=== PATIENT | male | born 1970 | race Caucasian/White ===

== ENCOUNTER 2020-04-29 09:00 | Outpatient (REF) | payer OTHER, SELFPAY ==
[2020-04-29 11:19] LABS: MANUAL DIFF FLAG NO
[2020-04-29 11:31] LABS: Basophils Absolute Auto 0.1 X10*3/uL (0.0-0.2); Basophils Percent Auto 0.7 % (0-2); Eosinophils Absolute Auto 0.4 X10*3/uL (0.0-0.4); Hematocrit 42.7 % (42-52); Imm Gran Abs Auto 0.03 X10*3/uL (0.00-0.03); Imm Gran Pct Auto 0.3 % (0.0-0.4); Lymphocytes Absolute Auto 3.6 X10*3/uL (1.2-4.9); Lymphocytes Percent Auto 36.2 % (20-40); Mean Corpuscular HGB Conc 35.1 g/dl (31.0-36.0); Mean Corpuscular Hemoglobin 32.6 pg (27.0-33.0); Mean Corpuscular Volume 92.8 fL (80-98); Mean Platelet Volume 11.5 fL (9.4-12.4); Monocytes Absolute Auto 0.8 X10*3/uL (0.1-1.2); Monocytes Percent Auto 8.2 % (2-11); Neutrophils Percent Auto 50.6 % (45-73); Platelet Count 249 X10*3/uL (160-400); Red Cell Distribution Width 11.9 % (11.0-16.0)
[2020-04-29 12:02] LABS: Alanine Aminotransferase 11 U/L (0-40); Albumin Level 4.1 g/dL (3.5-5.0); Alkaline Phosphatase 74 U/L (39-117); Anion Gap 11 (12-20); Aspartate Amino Transferase 14 U/L (5-37); Bilirubin Total 0.7 mg/dL (0.0-1.0); Blood Urea Nitrogen 10 mg/dL (9-16); Calcium 8.8 mg/dL (8.4-10.2); Carbon Dioxide 26 mmol/L (22-29); Chloride 106 mmol/L (96-108); Estimated Glomerular Filt Rate > 60; Glucose Random 91 mg/dL (60-115); Potassium 4.1 mmol/l (3.3-5.1); Sodium 139 mmol/L (135-145); Total Protein 6.5 g/dL (6.5-8.0)
== END 2020-04-29 09:01 | disposition home or self-care (01) ==
LOC: HO.HMGCLDS 09:00
PROVIDERS: PCP Internal Medicine; Visit Provider Physician Assistant Medical
DX: L40.0 Psoriasis vulgaris (principal); Z79.899 Other long term (current) drug therapy
CPT/HCPCS: 36415; 80053; 85025; 86481

== ENCOUNTER 2020-09-30 09:50 | Outpatient (REF) | payer OTHER, SELFPAY ==
[2020-09-30 11:43] LABS: MANUAL DIFF FLAG NO
[2020-09-30 11:56] LABS: Basophils Absolute Auto 0.1 X10*3/uL (0.0-0.2); Eosinophils Absolute Auto 0.5 X10*3/uL (0.0-0.4); Eosinophils Percent Auto 4.9 % (0-4); Hematocrit 44.6 % (42-52); Hemoglobin 15.2 g/dl (14.0-18.0); Imm Gran Abs Auto 0.03 X10*3/uL (0.00-0.03); Imm Gran Pct Auto 0.3 % (0.0-0.4); Lymphocytes Absolute Auto 3.4 X10*3/uL (1.2-4.9); Lymphocytes Percent Auto 36.8 % (20-40); Mean Corpuscular HGB Conc 34.1 g/dl (31.0-36.0); Mean Corpuscular Hemoglobin 32.2 pg (27.0-33.0); Mean Corpuscular Volume 94.5 fL (80-98); Mean Platelet Volume 11.2 fL (9.4-12.4); Monocytes Absolute Auto 0.8 X10*3/uL (0.1-1.2); Monocytes Percent Auto 8.7 % (2-11); Neutrophils Absolute Auto 4.5 X10*3/uL (2.0-8.3); Neutrophils Percent Auto 48.3 % (45-73); Platelet Count 236 X10*3/uL (160-400); Red Blood Count 4.72 X10*6/uL (4.60-5.80); Red Cell Distribution Width 11.9 % (11.0-16.0); White Blood Count 9.3 X10*3/uL (4.8-10.8)
[2020-09-30 12:18] LABS: Alanine Aminotransferase 17 U/L (0-40); Albumin Level 4.3 g/dL (3.5-5.0); Alkaline Phosphatase 78 U/L (39-117); Anion Gap 11 (12-20); Aspartate Amino Transferase 19 U/L (5-37); Blood Urea Nitrogen 10 mg/dL (9-16); Calcium 9.1 mg/dL (8.4-10.2); Carbon Dioxide 29 mmol/L (22-29); Chloride 104 mmol/L (96-108); Estimated Glomerular Filt Rate > 60; Glucose Random 82 mg/dL (60-115); Potassium 4.1 mmol/L (3.3-5.1); Sodium 140 mmol/L (135-145); Total Protein 6.9 g/dL (6.5-8.0)
== END 2020-09-30 09:51 | disposition home or self-care (01) ==
LOC: HO.HMGCLDS 09:50
PROVIDERS: PCP Internal Medicine; Visit Provider Physician Assistant Medical
DX: L40.0 Psoriasis vulgaris (principal); Z79.899 Other long term (current) drug therapy
CPT/HCPCS: 36415; 80053; 85025

== ENCOUNTER 2021-06-09 10:19 | Outpatient (REF) | payer OTHER, SELFPAY ==
[2021-06-09 11:03] LABS: MANUAL DIFF FLAG NO
[2021-06-09 11:06] LABS: Basophils Absolute Auto 0.1 X10*3/uL (0.0-0.2); Basophils Percent Auto 0.8 % (0-2); Eosinophils Absolute Auto 0.5 X10*3/uL (0.0-0.4); Eosinophils Percent Auto 5.5 % (0-4); Hematocrit 43.1 % (42.0-52.0); Hemoglobin 14.8 g/dl (14.0-18.0); Imm Gran Abs Auto 0.02 X10*3/uL (0.00-0.03); Imm Gran Pct Auto 0.2 % (0.0-0.4); Lymphocytes Absolute Auto 3.6 X10*3/uL (1.2-4.9); Lymphocytes Percent Auto 38.3 % (20-40); Mean Corpuscular HGB Conc 34.3 g/dl (31.0-36.0); Mean Corpuscular Hemoglobin 31.9 pg (27.0-33.0); Mean Corpuscular Volume 92.9 fL (80.0-98.0); Mean Platelet Volume 11.1 fL (9.4-12.4); Monocytes Absolute Auto 0.7 X10*3/uL (0.1-1.2); Neutrophils Absolute Auto 4.6 x10*3/uL (2.0-8.3); Neutrophils Percent Auto 48.2 % (45-73); Platelet Count 255 X10*3/uL (160-400); Red Blood Count 4.64 X10*6/uL (4.60-5.80); Red Cell Distribution Width 11.9 % (11.0-16.0); White Blood Count 9.5 X10*3/uL (4.8-10.8)
[2021-06-09 12:07] LABS: Alanine Aminotransferase 12 U/L (0-40); Albumin Level 4.1 g/dL (3.5-5.0); Alkaline Phosphatase 81 U/L (39-117); Anion Gap 13 (12-20); Aspartate Amino Transferase 12 U/L (5-37); Bilirubin Total 0.7 mg/dL (0.0-1.0); Blood Urea Nitrogen 7 mg/dL (9-16); Calcium 9.1 mg/dL (8.4-10.2); Carbon Dioxide 22 mmol/L (22-29); Chloride 106 mmol/L (96-108); Estimated Glomerular Filt Rate > 60; Glucose Random 108 mg/dL (60-115); Potassium 3.9 mmol/L (3.3-5.1); Sodium 137 mmol/L (135-145); Total Protein 6.6 g/dL (6.5-8.0)
[2021-06-11 14:51] LABS: TS Negative Control Passed; TS Panel A 0; TS Panel B 0; TS Positive Control Passed; TSpotTB Negative (Negative)
== END 2021-06-09 10:20 | disposition home or self-care (01) ==
LOC: HO.HMGCLDS 10:19
PROVIDERS: PCP Internal Medicine; Visit Provider Physician Assistant Medical
DX: Z11.1 Encounter for screening for respiratory tuberculosis (principal); L40.0 Psoriasis vulgaris; Z79.899 Other long term (current) drug therapy
CPT/HCPCS: 36415; 80053; 85025; 86481

== ENCOUNTER 2021-10-07 08:11 | Outpatient (REF) | payer OTHER, SELFPAY ==
[2021-10-07 11:38] LABS: Alanine Aminotransferase 12 U/L (0-40); Albumin Level 4.1 g/dL (3.5-5.0); Alkaline Phosphatase 77 U/L (39-117); Anion Gap 12 (12-20); Aspartate Amino Transferase 13 U/L (5-37); Bilirubin Total 0.9 mg/dL (0.0-1.0); Blood Urea Nitrogen 11 mg/dL (9-16); Calcium 9.4 mg/dL (8.4-10.2); Carbon Dioxide 25 mmol/L (22-29); Chloride 108 mmol/L (96-108); Cholesterol 174 mg/dL; Estimated Glomerular Filt Rate > 60; Glucose Fasting 95 mg/dL (60-99); HDL Cholesterol 41 mg/dL; LDL Cholesterol Calculated 120 mg/dl; Potassium 4.1 mmol/L (3.3-5.1); Sodium 141 mmol/L (135-145); Total Protein 6.7 g/dL (6.5-8.0); Triglycerides 65 mg/dL
== END 2021-10-07 08:12 | disposition home or self-care (01) ==
LOC: HO.HMGCLDS 08:11
PROVIDERS: PCP Internal Medicine; Visit Provider Internal Medicine
DX: Z00.01 Encounter for general adult medical examination with abnormal findings (principal); K21.9 Gastro-esophageal reflux disease without esophagitis
CPT/HCPCS: 36415; 80053; 80061

== ENCOUNTER 2021-11-21 08:02 | Outpatient (REF) | payer OTHER, SELFPAY ==
--- NOTE | 2021-11-21 16:15 | PFT_ITS ---
Forced vital capacity 85%, FEV1 74%, FEV1/FVC ratio is 68, FEF 25-75 is 51% and MVV 64%. Post bronchodilator therapy, there is significant improvement in FEV1 and FEF 25-75. Total lung capacity 95%. Residual volume 123%. Diffusion capacity is 62%. CONCLUSION: Mild degree of obstructive airway disorder which corrects after bronchodilator therapy. This finding is consistent with bronchial asthma with mild COPD. Clinical correlation is recommended. MD NEHEMIAS Byrd/MODL / [id number]
== END 2021-11-21 08:03 | disposition home or self-care (01) ==
LOC: HO.RESP 08:02
PROVIDERS: PCP Internal Medicine; Visit Provider Internal Medicine
DX: R06.2 Wheezing (principal); Z72.0 Tobacco use
CPT/HCPCS: 94060; 94727; 94729

== ENCOUNTER 2022-01-02 08:17 | Outpatient (REF) | payer OTHER, SELFPAY ==
[2022-01-02 11:29] LABS: MANUAL DIFF FLAG NO
[2022-01-02 11:48] LABS: Basophils Absolute Auto 0.1 X10*3/uL (0.0-0.2); Basophils Percent Auto 0.6 % (0-2); Eosinophils Absolute Auto 0.4 X10*3/uL (0.0-0.4); Eosinophils Percent Auto 4.1 % (0-4); Hemoglobin 14.7 g/dl (14.0-18.0); Imm Gran Abs Auto 0.03 X10*3/uL (0.00-0.03); Imm Gran Pct Auto 0.3 % (0.0-0.4); Lymphocytes Absolute Auto 3.5 X10*3/uL (1.2-4.9); Lymphocytes Percent Auto 36.5 % (20-40); Mean Corpuscular HGB Conc 34.2 g/dl (31.0-36.0); Mean Corpuscular Hemoglobin 32.5 pg (27.0-33.0); Mean Corpuscular Volume 95.1 fL (80.0-98.0); Mean Platelet Volume 11.6 fL (9.4-12.4); Monocytes Absolute Auto 0.8 X10*3/uL (0.1-1.2); Monocytes Percent Auto 8.2 % (2-11); Neutrophils Absolute Auto 4.9 x10*3/uL (2.0-8.3); Neutrophils Percent Auto 50.3 % (45-73); Platelet Count 254 X10*3/uL (160-400); Red Blood Count 4.52 X10*6/uL (4.60-5.80); Red Cell Distribution Width 12.2 % (11.0-16.0); White Blood Count 9.7 X10*3/uL (4.8-10.8)
[2022-01-02 12:15] LABS: Alanine Aminotransferase 10 U/L (0-40); Albumin Level 4.3 g/dL (3.5-5.0); Alkaline Phosphatase 77 U/L (39-117); Anion Gap 13 (12-20); Aspartate Amino Transferase 12 U/L (5-37); Bilirubin Total 0.8 mg/dL (0.0-1.0); Blood Urea Nitrogen 12 mg/dL (9-16); Calcium 9.1 mg/dL (8.4-10.2); Carbon Dioxide 24 mmol/L (22-29); Chloride 105 mmol/L (96-108); Estimated Glomerular Filt Rate > 60; Glucose Random 87 mg/dL (60-115); Potassium 3.7 mmol/L (3.3-5.1); Sodium 138 mmol/L (135-145)
== END 2022-01-02 08:18 | disposition home or self-care (01) ==
LOC: HO.HMGCLDS 08:17
PROVIDERS: PCP Internal Medicine; Visit Provider Physician Assistant Medical
DX: L40.0 Psoriasis vulgaris (principal); D48.5 Neoplasm of uncertain behavior of skin; Z79.899 Other long term (current) drug therapy
CPT/HCPCS: 36415; 80053; 85025

== ENCOUNTER 2022-06-26 08:59 | Outpatient (REF) | payer OTHER, SELFPAY ==
[2022-06-26 13:01] LABS: Alanine Aminotransferase 10 U/L (0-40); Albumin Level 4.3 g/dL (3.5-5.0); Alkaline Phosphatase 76 U/L (39-117); Anion Gap 12 (12-20); Aspartate Amino Transferase 14 U/L (5-37); Blood Urea Nitrogen 6 mg/dL (9-16); Calcium 9.8 mg/dL (8.4-10.2); Carbon Dioxide 27 mmol/L (22-29); Chloride 102 mmol/L (96-108); Estimated Glomerular Filt Rate > 60; Glucose Random 86 mg/dL (60-115); Potassium 3.8 mmol/L (3.3-5.1); Prostate Specific Antigen 0.28 ng/mL (<0.05-4.0); Sodium 137 mmol/L (135-145); Total Protein 6.9 g/dL (6.5-8.0)
== END 2022-06-26 09:00 | disposition home or self-care (01) ==
LOC: HO.HMGCLDS 08:59
PROVIDERS: Absent Provider Dermatology; PCP Internal Medicine; Visit Provider Internal Medicine
DX: Z12.5 Encounter for screening for malignant neoplasm of prostate (principal); I10 Essential (primary) hypertension; J45.40 Moderate persistent asthma, uncomplicated; K21.9 Gastro-esophageal reflux disease without esophagitis; L40.50 Arthropathic psoriasis, unspecified; R35.1 Nocturia; Z72.0 Tobacco use
CPT/HCPCS: 36415; 80053; 84153

== ENCOUNTER → 2022-07-13 08:33 | Outpatient (BNVA) | payer SELFPAY | PROVIDERS: PCP Internal Medicine; Visit Provider Internal Medicine | DX: Z02.79 Encounter for issue of other medical certificate (principal) ==

== ENCOUNTER 2022-10-15 10:08 | Outpatient (REF) | payer OTHER, SELFPAY ==
[2022-10-15 11:32] LABS: MANUAL DIFF FLAG NO
[2022-10-15 11:51] LABS: Basophils Absolute Auto 0.1 X10*3/uL (0.0-0.2); Basophils Percent Auto 0.7 % (0-2); Eosinophils Absolute Auto 0.5 X10*3/uL (0.0-0.4); Eosinophils Percent Auto 3.9 % (0-4); Hematocrit 44.2 % (42.0-52.0); Hemoglobin 15.4 g/dl (14.0-18.0); Imm Gran Abs Auto 0.04 X10*3/uL (0.00-0.03); Imm Gran Pct Auto 0.3 % (0.0-0.4); Lymphocytes Absolute Auto 3.8 X10*3/uL (1.2-4.9); Lymphocytes Percent Auto 30.3 % (20-40); Mean Corpuscular HGB Conc 34.8 g/dl (31.0-36.0); Mean Corpuscular Hemoglobin 32.5 pg (27.0-33.0); Mean Corpuscular Volume 93.2 fL (80.0-98.0); Mean Platelet Volume 11.2 fL (9.4-12.4); Monocytes Absolute Auto 0.7 X10*3/uL (0.1-1.2); Monocytes Percent Auto 5.9 % (2-11); Neutrophils Absolute Auto 7.4 x10*3/uL (2.0-8.3); Neutrophils Percent Auto 58.9 % (45-73); Platelet Count 244 X10*3/uL (160-400); Red Blood Count 4.74 X10*6/uL (4.60-5.80); Red Cell Distribution Width 11.9 % (11.0-16.0); White Blood Count 12.5 X10*3/uL (4.8-10.8)
[2022-10-15 12:11] LABS: Alanine Aminotransferase 15 U/L (0-40); Albumin Level 4.2 g/dL (3.5-5.0); Alkaline Phosphatase 81 U/L (39-117); Anion Gap 14 (12-20); Aspartate Amino Transferase 19 U/L (5-37); Bilirubin Direct 0.2 mg/dL (0.0-0.5); Bilirubin Total 0.7 mg/dL (0.0-1.0); Blood Urea Nitrogen 8 mg/dL (9-16); Calcium 9.3 mg/dL (8.4-10.2); Carbon Dioxide 25 mmol/L (22-29); Chloride 105 mmol/L (96-108); Cholesterol 161 mg/dL; Estimated Glomerular Filt Rate > 60; Glucose Random 92 mg/dL (60-115); HDL Cholesterol 38 mg/dL; LDL Cholesterol Calculated 105 mg/dl; Potassium 3.6 mmol/L (3.3-5.1); Sodium 140 mmol/L (135-145); Total Protein 6.9 g/dL (6.5-8.0); Triglycerides 90 mg/dL
[2022-10-18 00:48] LABS: TS Negative Control Passed; TS Panel A 2; TS Panel B 0; TS Positive Control Passed; TSpotTB Negative (Negative)
== END 2022-10-15 10:09 | disposition home or self-care (01) ==
LOC: HO.HMGCLDS 10:08
PROVIDERS: PCP Internal Medicine; Visit Provider Physician Assistant Medical
DX: L40.0 Psoriasis vulgaris (principal); Z79.899 Other long term (current) drug therapy
CPT/HCPCS: 36415; 80048; 80061; 80076; 85025; 86481

== ENCOUNTER 2022-10-17 06:58 | Outpatient (REF) | payer OTHER, SELFPAY ==
[2022-10-17 12:06] LABS: Alanine Aminotransferase 20 U/L (0-40); Albumin Level 3.9 g/dL (3.5-5.0); Alkaline Phosphatase 74 U/L (39-117); Anion Gap 11 (12-20); Aspartate Amino Transferase 20 U/L (5-37); Bilirubin Total 0.9 mg/dL (0.0-1.0); Blood Urea Nitrogen 10 mg/dL (9-16); Calcium 9.3 mg/dL (8.4-10.2); Carbon Dioxide 28 mmol/L (22-29); Chloride 107 mmol/L (96-108); Cholesterol 170 mg/dL; Estimated Glomerular Filt Rate > 60; Glucose Fasting 91 mg/dL (60-99); HDL Cholesterol 39 mg/dL; LDL Cholesterol Calculated 110 mg/dl; Potassium 3.8 mmol/L (3.3-5.1); Sodium 142 mmol/L (135-145); Total Protein 6.4 g/dL (6.5-8.0); Triglycerides 108 mg/dL
== END 2022-10-17 06:59 | disposition home or self-care (01) ==
LOC: HO.HMGCLDS 06:58
PROVIDERS: PCP Internal Medicine; Visit Provider Internal Medicine
DX: Z00.01 Encounter for general adult medical examination with abnormal findings (principal); K21.9 Gastro-esophageal reflux disease without esophagitis; I10 Essential (primary) hypertension; J45.40 Moderate persistent asthma, uncomplicated; Z72.0 Tobacco use
CPT/HCPCS: 36415; 80053; 80061

== ENCOUNTER 2023-02-12 08:33 | Outpatient (AMB) | payer OTHER, SELFPAY ==
[2023-02-12 08:38] VITALS: BP 152/90; PULSE 71; O2SAT 98; BMI 22.9
--- NOTE | 2023-02-12 08:38 | A.OFFPC_ITS ---
Vital Signs 02/12/23 08:38 Height 5 ft 9 in Weight 155 lb 4 oz BMI 22.9 BP 152/90 H Blood Pressure Location Lt brachial Position Sitting Pulse 71 Pulse Source Pulse Oximeter Pulse Oximetry (%) 98 Oxygen Delivery Method Room Air Intake Visit Reasons: 4 month follow up HTN Allergies No Known Allergies Allergy (Verified 02/12/23 08:39) Medication List - Last Reconciled 02/12/23 by Chandu Ji MD adalimumab (Humira(CF) Pen) 40 mg subcut Q2W albuterol sulfate 90 mcg/actuation (ProAir HFA) 1 inh inhalation QID PRN 30 days fluticasone propion-salmeterol 230-21 mcg/actuation (Advair HFA) 2 puffs inhalation Q12H 30 days losartan 50 mg PO DAILY 90 days mirtazapine 15 mg PO BEDTIME naproxen (Naprosyn) 500 mg PO BID omeprazole 20 mg PO DAILY 90 days Tobacco use date assessed: 02/12/23 Dental Screening Dental Screen Date: 02/12/23 Did you have a dental visit in the last 12 months?: Yes Did you have a dental problem in the last 6 months where you did not have access to dental care?: No Was dental information given to patient?: No HPI 4 month follow up HTN HPI Details 52-year-old male came in today for regular follow-up appointment Patient continued to smoke 1 pack per day once again we discussed that it is very important that patient stop smoking He continued to wheeze. In spite of taking Advair inhaler regularly. I have added Spiriva as well Patient had colonoscopy 2 years ago at [facility] GERD is stable with omeprazole 20 mg Patient have psoriatic arthritis and was taking Humira through Dermatology, which is now changed to simplicity, he is requesting a referral to Rheumatology for arthritic pain Hypertension: Is elevated patient says that a blood pressure has been running around in this range at home as well I have changed his losartan 50 mg 2 Losartan 50-hydrochlorothiazide 12.5 mg Lab are needed before next visit in 3 months Taking mirtazapine 15 mg. As sleep aid, [facility] Medical History Diverticulitis Social History Housing: House Patient Tobacco Use Status: Current everyday Tobacco user Cigarette Packs Per Day: 1 e-Cigarette/Vaping Use: Never Used service: No Current occupational status: employed Cognitive needs: No Hearing needs: No Vision needs: No Questionnaire PHQ-9 Over the last 2 weeks, how often have you been bothered by any of the following problems? 35913 - PHQ-9 Billing: Patient declined-do not bill Source: Developed by Drs. Jerman El, Ruby Galaviz, Carlos Rocha and colleagues, with an educational hina from [employer]. Thrive Questionnaire Date Thrive assessed: 02/12/23 I am a: Patient What is your living situation today?: I have a steady place to live Within the past 12 months, did the food you bought not last and you didn't have the money to get more?: Never true Within the past 12 months, did you worry whether your food would run out before you got money to buy more?: Never true Do you have trouble paying for medicines?: No Do you have trouble getting transportation to medical appointments?: No Do you have trouble paying your heating and electricity bill?: No Do you have trouble taking care of your child, family member or friend?: No Do you have trouble with day-to-day activities such as bathing, preparing meals, shopping, managing finances, etc.?: No Are you currently unemployed and looking for a job?: No Are you interested in more education?: No AUDIT C Alcohol Use Questionnaire (AUDIT-C) 1. How often do you have a drink containing alcohol?: 2-4 times a month 2. How many drinks containing alcohol do you have on a typical day when you are drinking?: 1 or 2 3. How often do you have six or more drinks on one occasion?: Never Total Score: 2 Score Reviewed/Action Taken: Yes DESTINEY-7 AMB Questionnaire DESTINEY-7 Date DESTINEY - 7 assessed: 02/12/23 Source: Developed by Drs. Jerman El, Carlos Allison and colleagues, with an educational hina from [employer]. DESTINEY-7 Assessment Billing DESTINEY-7 Assessment Tool: pt declined-do not bill Review of Systems Const Denies chills and Denies fever(s) ENT Denies epistaxis and Denies nasal discharge Card Denies chest pain Resp Denies chest congestion, Denies cough and Denies hemoptysis GI Denies diarrhea and Denies nausea Skin/Breast Denies rash Neuro Reports no additional complaints Psych Reports no additional complaints Endo Reports no additional complaints Physical exam (Primary Care) Vital Signs: Last Vital Signs Pulse 71 02/12/23 08:38 BP 152/90 H 02/12/23 08:38 Pulse Ox 98 02/12/23 08:38 Oxygen Delivery Method Room Air 02/12/23 08:38 BMI result Body Mass Index 22.9 Tobacco/Smoking Status: Tobacco use Status Tobacco use date assessed 02/12/23 02/12/23 08:39 Patient Tobacco Use Status Current everyday Tobacco 02/12/23 08:39 e-Cigarette/Vaping Use Never Used 02/12/23 08:39 Thrive Assessment: Date of Thrive Assessment Date Thrive assessed 02/12/23 02/12/23 08:48 Const General: cooperative, comfortable and no acute distress Orientation/consciousness: patient oriented x3 HENMT Head: Yes normocephalic Eyes General: appearance normal, both eyes and all related structures Neck Neck: Yes supple Resp Other: Positive wheezing both sides Effort & Inspection: normal respiratory effort, no cough and no stridor Cardio Rhythm: regular rhythm Heart sounds: S1 normal heart sound present and S2 normal heart sound present Skin General skin exam: turgor normal Neuro General: patient oriented x3, tone normal and moves all extremities Extrem Right lower extremity: no edema Left lower extremity: no edema Assessment and Plan Assessment & Plan (1) Psoriatic arthritis: Code(s): L40.50 - Arthropathic psoriasis, unspecified (2) Hypertension, essential: Code(s): I10 - Essential (primary) hypertension (3) Asthma, moderate persistent: Code(s): J45.40 - Moderate persistent asthma, uncomplicated (4) Difficulty sleeping: Code(s): G47.9 - Sleep disorder, unspecified (5) Tobacco abuse: Code(s): Z72.0 - Tobacco use (6) Wheezing: Code(s): R06.2 - Wheezing (7) Chronic GERD: Code(s): K21.9 - Gastro-esophageal reflux disease without esophagitis Plan 52-year-old male came in today for regular follow-up appointment Patient continued to smoke 1 pack per day once again we discussed that it is very important that patient stop smoking He continued to wheeze. In spite of taking Advair inhaler regularly. I have added Spiriva as well Patient had colonoscopy 2 years ago at [facility] GERD is stable with omeprazole 20 mg Patient have psoriatic arthritis and was taking Humira through Dermatology, whi ch is now changed to simplicity, he is requesting a referral to Rheumatology for arthritic pain Hypertension: Is elevated patient says that a blood pressure has been running around in this range at home as well I have changed his losartan 50 mg 2 Losartan 50-hydrochlorothiazide 12.5 mg Lab are needed before next visit in 3 months Taking mirtazapine 15 mg. As sleep aid, Orders: Orders Complete Blood Count Auto Diff Today G47.9 - Sleep disorder, unspecified, I10 - Essential (primary) hypertension, J45.40 - Moderate persistent asthma, uncomplicated, K21.9 - Gastro-esophageal reflux disease without esophagitis, L40.50 - Arthropathic psoriasis, unspecified, R06.2 - Wheezing, Z72.0 - Tobacco use Comprehensive Met. Panel Today G47.9 - Sleep disorder, unspecified, I10 - Essential (primary) hypertension, J45.40 - Moderate persistent asthma, uncomplicated, K21.9 - Gastro-esophageal reflux disease without esophagitis, L40.50 - Arthropathic psoriasis, unspecified, R06.2 - Wheezing, Z72.0 - Tobacco use LDL Cholesterol Direct Today G47.9 - Sleep disorder, unspecified, I10 - Essential (primary) hypertension, J45.40 - Moderate persistent asthma, uncomplicated, K21.9 - Gastro-esophageal reflux disease without esophagitis, L40.50 - Arthropathic psoriasis, unspecified, R06.2 - Wheezing, Z72.0 - Tobacco use Referrals Rheumatology Referral L40.50 - Arthropathic psoriasis, unspecified Medications: New tiotropium bromide 2.5 mcg/actuation (Spiriva Respimat) 2 puffs inhalation QAM 4 grams 2RF losartan-hydrochlorothiazide 50-12.5 mg 1 tab PO DAILY 90 tabs 0RF Refilled fluticasone propion-salmeterol 230-21 mcg/actuation (Advair HFA) 2 puffs inhalation Q12H 12 grams 3RF 30 days Discontinued losartan Discontinued Reason: Doctor's Order 50 mg PO DAILY 90 days 90 tabs 0RF Coding Level of Care Code Est Pt Level 4 (15012) Diagnoses Psoriatic arthritis L40.50 Hypertension, essential I10 Asthma, moderate persistent J45.40 Difficulty sleeping G47.9 Tobacco abuse Z72.0 Wheezing R06.2 Chronic GERD K21.9
== END 2023-02-12 08:50 | disposition home or self-care (01) ==
PROVIDERS: Visit Provider Internal Medicine
DX: L40.50 Arthropathic psoriasis, unspecified (principal); I10 Essential (primary) hypertension; J45.40 Moderate persistent asthma, uncomplicated; G47.9 Sleep disorder, unspecified; Z72.0 Tobacco use; R06.2 Wheezing; K21.9 Gastro-esophageal reflux disease without esophagitis
CPT/HCPCS: 99214

== ENCOUNTER 2023-05-09 08:50 | Outpatient (AMB) | payer OTHER, SELFPAY ==
[2023-05-09 08:52] VITALS: BP 118/72; PULSE 74; TEMP 36.8; O2SAT 97; BMI 23.1
--- NOTE | 2023-05-09 08:52 | MHC.OFFVIS ---
Intake Vital Signs 05/09/23 08:52 Height 5 ft 9 in Weight 156 lb 8.451 oz BMI 23.1 BP 118/72 Blood Pressure Location Rt brachial Position Sitting Pulse 74 Pulse Source Pulse Oximeter Temp 98.2 F Temp Source Skin Pulse Oximetry (%) 97 Intake Visit Reasons: Psoriasis Intake Note: New pt presents today for consult, at the request of PCP, to discuss psoriasis. On mtx before failed, was switched to hUmira that worked for 2 years. Now on simplicity prescribed by Derm. 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: No Accompanied by: Self / Same As Patient Allergies No Known Allergies Allergy (Verified 05/09/23 08:59) Medication List - Last Reconciled 05/09/23 by Rosemarie Aiken MD adalimumab inject one - 40 mg/0.4 mL pen every 2 weeks subcut losartan-hydrochlorothiazide 50-12.5 mg 1 tab PO DAILY mirtazapine 15 mg PO BEDTIME PRN naproxen (Naprosyn) 500 mg PO DAILY omeprazole 20 mg PO DAILY 90 days tiotropium bromide 2.5 mcg/actuation (Spiriva Respimat) 2 puffs inhalation QAM Ventolin HFA 90 mcg/actuation (albuterol sulfate) 1 puff inhalation QID PRN NS HPI HPI Comments History of Present Illness Details This is a 52-year-old male with psoriasis who presents for evaluation of psoriatic arthritis. Patient states that he was diagnosed with psoriasis about 6 years ago. He was started on methotrexate 1 tab daily 6 days a week which cleared up his skin, then he was starting to have joint pain. He was switched to Humira by his Dermatology which was also quite effective for his skin but continued to have the same joint pain. Patient states that he has chronic low back pain. Morning stiffness lasting few minutes, he also has bilateral knee pain worse with activity and standing. He also has bilateral hand numbness. He denies any joint swelling except for when he was bit by a snake in his right knee 6 years ago and he had multiple right knee arthrocentesis. 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 Cognitive needs: No Hearing needs: No Vision needs: No Review of Systems Const Denies fever(s) and Denies weight loss ENT Reports neck pain Resp Reports wheezing GI Reports heartburn Musc Reports back pain, Reports arthralgias and Reports neck pain Skin/Breast Reports alopecia Aller/Immun Reports wheezing Physical Exam Vital Signs: Last Vital Signs Temp 98.2 F 05/09/23 08:52 Pulse 74 05/09/23 08:52 BP 118/72 05/09/23 08:52 Pulse Ox 97 05/09/23 08:52 BMI result Body Mass Index 23.1 Const General: cooperative, healthy appearing and comfortable Nutritional Appearance: average body habitus Orientation/consciousness: patient oriented x3 Limitations: no limitations HEENT Head: Yes normocephalic and Yes atraumatic Mouth: moist mucous membranes Resp Effort & Inspection: normal respiratory effort and able to speak in complete sentences Auscultation: wheezes Cardio Rate: regular rate Rhythm: regular rhythm Neuro General: patient oriented x3 Extrem Other: No active synovitis Normal nailfold capillaroscopy Tingling and numbness radiating up his forearms with tapping the wrists bilaterally Negative straight leg raise test bilaterally Negative Fletcher's test bilaterally Veronica test 10-13 cm Normal lateral flexion test bilaterally A trigger point in the right trapezius muscle area Negative Spurling's test bilaterally Bilateral knee crepitus Assessment & Plan Assessment & Plan (1) Polyarthralgia: Code(s): M25.50 - Pain in unspecified joint Plan: This is a 52-year-old male with a past medical history of psoriasis diagnosed 6 years ago who presents for evaluation of multiple joint pain. He is on adalimumab. His clinical picture is rather consistent with degenerative arthritis rather than inflammatory arthritis. Will check x-rays of involved joints. (2) Carpal tunnel syndrome, bilateral: Code(s): G56.03 - Carpal tunnel syndrome, bilateral upper limbs Plan: Check bilateral upper extremity EMG/NCV to evaluate for CTS/radiculopathy Plan I spent 46 minutes reviewing patient's chart, evaluating patient, ordering diagnostic workup, counseling patient and documenting in the chart Orders: Orders Comprehensive Met. Panel Today L40.50 - Arthropathic psoriasis, unspecified Erythrocyte Sedimentation Rate Today L40.50 - Arthropathic psoriasis, unspecified Hepatitis A,B,C Profile Today Z11.59 - Encounter for screening for other viral diseases XR knee RT 3V Today L40.50 - Arthropathic psoriasis, unspecified XR knee standing BI Today L40.50 - Arthropathic psoriasis, unspecified XR lumbar spine 4V min Today L40.50 - Arthropathic psoriasis, unspecified NE electromyogram (EMG) Today G56.03 - Carpal tunnel syndrome, bilateral upper limbs Complete Blood Count Auto Diff Today L40.50 - Arthropathic psoriasis, unspecified C Reactive Protein Today L40.50 - Arthropathic psoriasis, unspecified HLA B27 Today M54.50 - Low back pain, unspecified XR knee LT 3V Today L40.50 - Arthropathic psoriasis, unspecified XR sacroiliac joint min 3V Today L40.50 - Arthropathic psoriasis, unspecified XR cervical spine 4V Today L40.50 - Arthropathic psoriasis, unspecified Medications: Changed From mirtazapine 15 mg PO BEDTIME 90 tabs 0RF To mirtazapine 15 mg PO BEDTIME PRN Coding Level of Care Code New Pt Level 4 (49406) Diagnoses Polyarthralgia M25.50 Carpal tunnel syndrome, bilateral G56.03
== END 2023-05-09 09:25 | disposition home or self-care (01) ==
PROVIDERS: PCP Internal Medicine; Visit Provider Student in an Organized Health Care Education/Training Program
DX: M25.50 Pain in unspecified joint (principal); G56.03 Carpal tunnel syndrome, bilateral upper limbs
CPT/HCPCS: 99204

== ENCOUNTER 2023-05-09 08:50 | Outpatient (REF) | payer OTHER, SELFPAY ==
--- NOTE | ~2023-05-09 | XR_ITS ---
EXAMINATION: XR KNEE, BILATERAL XR SACROILIAC JOINTS XR LUMBAR SPINE XR CERVICAL SPINE CLINICAL INFORMATION: Arthropathic psoriasis. Patient states pain all over. COMPARISON: Right knee 01/16/2019. TECHNIQUE: 3 views of the sacroiliac joints. 5 views of the lumbar spine. 4 views of the right knee. 4 views of the left knee. 5 views of the cervical spine. FINDINGS: CERVICAL SPINE: A radiopaque ring overlies the dens on the lateral view, limiting evaluation, and is located in the soft tissues lateral mandible on the left, and likely represents an earring. Correlation with the clinical exam recommended for confirmation. Mild spondylosis in the mid to lower cervical spine. Cervical disc space heights and alignment preserved. Facet hypertrophy with neural foraminal encroachment bilaterally at C6-C7. LUMBAR SPINE: Slight rightward curvature of the lumbar spine. Lumbar vertebral body heights are preserved. There is a suggestion of diffuse bony demineralization. Straightening of the normal lumbar lordosis. Facet arthritis in the lower lumbar spine. Mild multilevel lumbar spondylosis. Lumbar disc space heights are essentially preserved. SACROILIAC JOINTS: Rounded pelvic calcifications are likely vascular. Mild degenerative changes in the bilateral sacroiliac joints. A 9 mm sclerotic focus projects over the right humeral head, possibly representing a bone. RIGHT KNEE: Mild joint effusion. Minimal medial joint space narrowing. Tiny posterior patellar spurs. LEFT KNEE: Mild joint effusion. Minimal medial joint space narrowing. Tiny posterior patellar osteophytes. XR/XR sacroiliac joint min 3V IMPRESSION: 1. Mild spondylosis in the mid to lower cervical spine. 2. Mild multilevel lumbar spondylosis. 3. Facet arthritis in the lower lumbar spine. 4. Mild degenerative changes in the bilateral sacroiliac joints. 5. Mild bilateral knee joint effusions with minimal degenerative changes. Additional imaging with CT scan or MRI should be considered for better visualization as these modalities are much more sensitive for detection of fracture or other underlying pathology.
--- NOTE | ~2023-05-09 | XR_ITS ---
EXAMINATION: XR KNEE, BILATERAL XR SACROILIAC JOINTS XR LUMBAR SPINE XR CERVICAL SPINE CLINICAL INFORMATION: Arthropathic psoriasis. Patient states pain all over. COMPARISON: Right knee 01/16/2019. TECHNIQUE: 3 views of the sacroiliac joints. 5 views of the lumbar spine. 4 views of the right knee. 4 views of the left knee. 5 views of the cervical spine. FINDINGS: CERVICAL SPINE: A radiopaque ring overlies the dens on the lateral view, limiting evaluation, and is located in the soft tissues lateral mandible on the left, and likely represents an earring. Correlation with the clinical exam recommended for confirmation. Mild spondylosis in the mid to lower cervical spine. Cervical disc space heights and alignment preserved. Facet hypertrophy with neural foraminal encroachment bilaterally at C6-C7. LUMBAR SPINE: Slight rightward curvature of the lumbar spine. Lumbar vertebral body heights are preserved. There is a suggestion of diffuse bony demineralization. Straightening of the normal lumbar lordosis. Facet arthritis in the lower lumbar spine. Mild multilevel lumbar spondylosis. Lumbar disc space heights are essentially preserved. SACROILIAC JOINTS: Rounded pelvic calcifications are likely vascular. Mild degenerative changes in the bilateral sacroiliac joints. A 9 mm sclerotic focus projects over the right humeral head, possibly representing a bone. RIGHT KNEE: Mild joint effusion. Minimal medial joint space narrowing. Tiny posterior patellar spurs. LEFT KNEE: Mild joint effusion. Minimal medial joint space narrowing. Tiny posterior patellar osteophytes. XR/XR lumbar spine 4V min IMPRESSION: 1. Mild spondylosis in the mid to lower cervical spine. 2. Mild multilevel lumbar spondylosis. 3. Facet arthritis in the lower lumbar spine. 4. Mild degenerative changes in the bilateral sacroiliac joints. 5. Mild bilateral knee joint effusions with minimal degenerative changes. Additional imaging with CT scan or MRI should be considered for better visualization as these modalities are much more sensitive for detection of fracture or other underlying pathology.
--- NOTE | ~2023-05-09 | XR_ITS ---
EXAMINATION: XR KNEE, BILATERAL XR SACROILIAC JOINTS XR LUMBAR SPINE XR CERVICAL SPINE CLINICAL INFORMATION: Arthropathic psoriasis. Patient states pain all over. COMPARISON: Right knee 01/16/2019. TECHNIQUE: 3 views of the sacroiliac joints. 5 views of the lumbar spine. 4 views of the right knee. 4 views of the left knee. 5 views of the cervical spine. FINDINGS: CERVICAL SPINE: A radiopaque ring overlies the dens on the lateral view, limiting evaluation, and is located in the soft tissues lateral mandible on the left, and likely represents an earring. Correlation with the clinical exam recommended for confirmation. Mild spondylosis in the mid to lower cervical spine. Cervical disc space heights and alignment preserved. Facet hypertrophy with neural foraminal encroachment bilaterally at C6-C7. LUMBAR SPINE: Slight rightward curvature of the lumbar spine. Lumbar vertebral body heights are preserved. There is a suggestion of diffuse bony demineralization. Straightening of the normal lumbar lordosis. Facet arthritis in the lower lumbar spine. Mild multilevel lumbar spondylosis. Lumbar disc space heights are essentially preserved. SACROILIAC JOINTS: Rounded pelvic calcifications are likely vascular. Mild degenerative changes in the bilateral sacroiliac joints. A 9 mm sclerotic focus projects over the right humeral head, possibly representing a bone. RIGHT KNEE: Mild joint effusion. Minimal medial joint space narrowing. Tiny posterior patellar spurs. LEFT KNEE: Mild joint effusion. Minimal medial joint space narrowing. Tiny posterior patellar osteophytes. XR/XR cervical spine 4V IMPRESSION: 1. Mild spondylosis in the mid to lower cervical spine. 2. Mild multilevel lumbar spondylosis. 3. Facet arthritis in the lower lumbar spine. 4. Mild degenerative changes in the bilateral sacroiliac joints. 5. Mild bilateral knee joint effusions with minimal degenerative changes. Additional imaging with CT scan or MRI should be considered for better visualization as these modalities are much more sensitive for detection of fracture or other underlying pathology.
[2023-05-09 09:47] LABS: MANUAL DIFF FLAG NO
[2023-05-09 10:02] LABS: Basophils Absolute Auto 0.1 X10*3/uL (0.0-0.2); Basophils Percent Auto 0.6 % (0-2); Eosinophils Absolute Auto 0.6 X10*3/uL (0.0-0.4); Hematocrit 44.9 % (42.0-52.0); Hemoglobin 15.8 g/dl (14.0-18.0); Imm Gran Abs Auto 0.06 X10*3/uL (0.00-0.03); Imm Gran Pct Auto 0.4 % (0.0-0.4); Lymphocytes Absolute Auto 4.1 X10*3/uL (1.2-4.9); Lymphocytes Percent Auto 28.8 % (20-40); Mean Corpuscular HGB Conc 35.2 g/dl (31.0-36.0); Mean Corpuscular Hemoglobin 32.2 pg (27.0-33.0); Mean Corpuscular Volume 91.6 fL (80.0-98.0); Mean Platelet Volume 10.4 fL (9.4-12.4); Monocytes Absolute Auto 0.9 X10*3/uL (0.1-1.2); Monocytes Percent Auto 6.6 % (2-11); Neutrophils Absolute Auto 8.4 x10*3/uL (2.0-8.3); Neutrophils Percent Auto 59.6 % (45-73); Platelet Count 257 X10*3/uL (160-400); Red Cell Distribution Width 12.2 % (11.0-16.0); White Blood Count 14.2 X10*3/uL (4.8-10.8)
[2023-05-09 10:43] LABS: Alanine Aminotransferase 9 U/L (0-40); Albumin Level 4.2 g/dL (3.5-5.0); Alkaline Phosphatase 74 U/L (39-117); Anion Gap 13 (12-20); Aspartate Amino Transferase 15 U/L (5-37); Blood Urea Nitrogen 11 mg/dL (9-16); C Reactive Protein 0.69 mg/dL (< or = 0.50); Calcium 9.4 mg/dL (8.4-10.2); Carbon Dioxide 27 mmol/L (22-29); Chloride 103 mmol/L (96-108); Estimated Glomerular Filt Rate > 60; Glucose Random 83 mg/dL (60-115); Potassium 3.5 mmol/L (3.3-5.1); Sodium 139 mmol/L (135-145); Total Protein 7.2 g/dL (6.5-8.0)
[2023-05-09 10:57] LABS: Erythrocyte Sedimentation Rate 2 MM/HR (0-15)
[2023-05-09 10:58] LABS: HBc Num1 0.03 S/CO (0.00-0.79); HBsAGNum1 0.33 S/CO (0.00-0.99); Hepatitis A Antibody IgM 0.17 Index (0-0.79); Hepatitis B Core Antibody Nonreactive (Nonreactive); Hepatitis B Surface Antigen Negative (Negative); ~HepC Num1 0.08 S/CO (0.00-0.79); ~Hepatitis A Antibody IgM Nonreactive (Nonreactive); ~Hepatitis B Surface Antibody NONREACTIVE (Nonreactive); ~Hepatitis C Antibody Nonreactive (Nonreactive)
[2023-05-16 14:58] LABS: HLA B27 Negative (Negative)
== END 2023-05-09 08:51 | disposition home or self-care (01) ==
LOC: HO.LAB 08:50
PROVIDERS: PCP Internal Medicine; Visit Provider Student in an Organized Health Care Education/Training Program
DX: Z11.59 Encounter for screening for other viral diseases (principal); L40.50 Arthropathic psoriasis, unspecified; M25.50 Pain in unspecified joint; G56.03 Carpal tunnel syndrome, bilateral upper limbs
CPT/HCPCS: 36415; 72050; 72110; 72202; 73564; 80053; 85025; 85652; 86140; 86704; 86706; 86709; 86803; 86812; 87340

== ENCOUNTER 2023-05-15 09:47 | Outpatient (AMB) | payer OTHER, SELFPAY ==
--- NOTE | 2023-05-15 09:49 | MHC.PC.OV ---
Vital Signs 05/15/23 09:50 Height 5 ft 9 in Weight 162 lb 2 oz BMI 23.9 BP 142/88 H Blood Pressure Location Lt brachial Position Sitting Pulse 79 Pulse Source Pulse Oximeter Pulse Oximetry (%) 97 Oxygen Delivery Method Room Air Intake Visit Reasons: 3 month f/u Allergies No Known Allergies Allergy (Verified 05/15/23 09:50) Medication List - Last Reconciled 05/15/23 by Chandu Ji MD adalimumab inject one - 40 mg/0.4 mL pen every 2 weeks subcut losartan-hydrochlorothiazide 50-12.5 mg 1 tab PO DAILY mirtazapine 15 mg PO BEDTIME PRN naproxen (Naprosyn) 500 mg PO DAILY omeprazole 20 mg PO DAILY 90 days tiotropium bromide 2.5 mcg/actuation (Spiriva Respimat) 2 puffs inhalation QAM Ventolin HFA 90 mcg/actuation (albuterol sulfate) 1 puff inhalation QID PRN NS Tobacco use date assessed: 05/15/23 Dental Screening Dental Screen Date: 05/15/23 Did you have a dental visit in the last 12 months?: Yes Did you have a dental problem in the last 6 months where you did not have access to dental care?: No Was dental information given to patient?: Patient has dentist HPI 3 month f/u HPI Details 52-year-old male came in today for regular follow-up appointment Patient has psoriatic arthritis currently he is seeing lead game designer and taking medications through them He had labs done recently CRP is elevated and so is his white count Patient continued to smoke 1 pack per day once again we discussed that it is very important that patient stop smoking He is taking Advair inhaler regularly. And Spiriva as well, his lungs are clear today GERD is stable with omeprazole 20 mg Hypertension: Blood pressure is slightly elevated today patient is on losartan hydrochlorothiazide 50-12.5 mg It was 118 / 72 at rheumatology office, patient was instructed to bring his monitor along next time Sleeping difficulty: Patient is taking mirtazapine half a tablet over the weekends. 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 1. Little interest or pleasure in doing things: not at all 2. Feeling down, depressed, or hopeless: not at all 3. Trouble falling or staying asleep, or sleeping too much: several days 4. Feeling tired or having little energy: more than half the days 5. Poor appetite or overeating: several days 6. Feeling bad about yourself - or that you are a failure or have let yourself or your family down: not at all 7. Trouble concentrating on things, such as reading the newspaper or watching television: not at all 8. Moving or speaking so slowly that other people could have noticed. Or the opposite - being so fidgety or restless that you have been moving around a lot more than usual: not at all 9. Thoughts that you would be better off or of hurting yourself in some way: not at all Total score: 4 Depression Screening Interpretation: Negative Depression Screening Done: Yes 28746 - PHQ-9 Billing: Yes Source: Developed by Drs. Jerman El, Ruby Galaviz, Carlos Rocha and colleagues, with an educational hina from [employer]. Thrive Questionnaire Date Thrive assessed: 02/12/23 AUDIT C Alcohol Use Questionnaire (AUDIT-C) 1. How often do you have a drink containing alcohol?: 2-4 times a month 2. How many drinks containing alcohol do you have on a typical day when you are drinking?: 1 or 2 3. How often do you have six or more drinks on one occasion?: Never Total Score: 2 Score Reviewed/Action Taken: Yes DESTINEY-7 AMB Questionnaire DESTINEY-7 Date DESTINEY - 7 assessed: 05/15/23 Feeling nervous, anxious, or on edge: 1 = Several days Not being able to stop or control worryin = Several days Worrying too much about different things: 1 = Several days Trouble relaxin = Several days Being so restless that it is hard to sit still: 1 = Several days Becoming easily annoyed or irritable: 1 = Several days Feeling afraid as if something awful might happen: 1 = Several days Total DESTINEY-7 score (0-4 normal; 5-9 mild; 10-14 moderate; 15-21 severe): 7 Source: Developed by Drs. Jerman El, Ruby Galaviz, Carlos Rocha and colleagues, with an educational hina from [employer]. DESTINEY-7 Assessment Billing DESTINEY-7 Assessment Tool: DESTINEY-7 Assessment 24393 Review of Systems Const Denies chills and Denies fever(s) ENT Denies epistaxis and Denies nasal discharge Card Denies chest pain Resp Denies chest congestion, Denies cough and Denies hemoptysis GI Denies diarrhea and Denies nausea Skin/Breast Denies rash Neuro Reports no additional complaints Psych Reports no additional complaints Endo Reports no additional complaints Physical exam (Primary Care) Vital Signs: Last Vital Signs Pulse 79 05/15/23 09:50 BP 142/88 H 05/15/23 09:50 Pulse Ox 97 05/15/23 09:50 Oxygen Delivery Method Room Air 05/15/23 09:50 BMI result Body Mass Index 23.9 Tobacco/Smoking Status: Tobacco use Status Tobacco use date assessed 05/15/23 05/15/23 09:55 Patient Tobacco Use Status Current everyday Tobacco 05/15/23 09:55 e-Cigarette/Vaping Use Never Used 05/15/23 09:55 PHQ-9: PHQ-9 Score PHQ-9: Total score 4 05/15/23 10:09 Depression Screening Interpretation: Negative Thrive Assessment: Date of Thrive Assessment Date Thrive assessed 02/12/23 05/15/23 09:55 Const General: cooperative, comfortable and no acute distress Orientation/consciousness: patient oriented x3 HENMT Head: Yes normocephalic Eyes General: appearance normal, both eyes and all related structures Neck Neck: Yes supple Resp Effort & Inspection: normal respiratory effort, no cough and no stridor Cardio Rhythm: regular rhythm Heart sounds: S1 normal heart sound present and S2 normal heart sound present Skin General skin exam: turgor normal Neuro General: patient oriented x3, tone normal and moves all extremities Extrem Right lower extremity: no edema Left lower extremity: no edema Assessment and Plan Assessment & Plan (1) Psoriatic arthritis: Code(s): L40.50 - Arthropathic psoriasis, unspecified (2) Hypertension, essential: Code(s): I10 - Essential (primary) hypertension (3) Asthma, moderate persistent: Code(s): J45.40 - Moderate persistent asthma, uncomplicated Qualifiers: Asthma complication type: uncomplicated Qualified Code(s): J45.40 - Moderate persistent asthma, uncomplicated (4) Difficulty sleeping: Code(s): G47.9 - Sleep disorder, unspecified (5) Tobacco abuse: Code(s): Z72.0 - Tobacco use (6) Chronic GERD: Code(s): K21.9 - Gastro-esophageal reflux disease without esophagitis (7) COPD mixed type: Code(s): J44.9 - Chronic obstructive pulmonary disease, unspecified Plan 52-year-old male came in today for regular follow-up appointment Patient has psoriatic arthritis currently he is seeing lead game designer and taking medications through them He had labs done recently CRP is elevated and so is his white count Patient continued to smoke 1 pack per day once again we discussed that it is very important that patient stop smoking He is taking Advair inhaler regularly. And Spiriva as well, his lungs are clear today GERD is stable with omeprazole 20 mg Hypertension: Blood pressure is slightly elevated today patient is on losartan hydrochlorothiazide 50-12.5 mg It was 118 / 72 at rheumatology office, patient was instructed to bring his monitor along next time Sleeping difficulty: Patient is taking mirtazapine half a tablet over the weekends. He will return in 3 months for follow-up Coding Level of Care Code Est Pt Level 4 (32502) Diagnoses Psoriatic arthritis L40.50 Hypertension, essential I10 Moderate persistent asthma without complication J45.40 Asthma complication type: uncomplicated Difficulty sleeping G47.9 Tobacco abuse Z72.0 Chronic GERD K21.9 COPD mixed type J44.9 Additional Codes DESTINEY-7 Assessment Billing - DESTINEY-7 Assessment Tool: DESTINEY-7 Assessment 56616 ([id number])
[2023-05-15 09:50] VITALS: BP 142/88; PULSE 79; O2SAT 97; BMI 23.9
== END 2023-05-15 10:08 | disposition home or self-care (01) ==
PROVIDERS: PCP Internal Medicine; Visit Provider Internal Medicine
DX: L40.50 Arthropathic psoriasis, unspecified (principal); J44.9 Chronic obstructive pulmonary disease, unspecified; I10 Essential (primary) hypertension; J45.40 Moderate persistent asthma, uncomplicated; G47.9 Sleep disorder, unspecified; Z72.0 Tobacco use; K21.9 Gastro-esophageal reflux disease without esophagitis
CPT/HCPCS: 99214

== ENCOUNTER 2023-06-21 08:07 | Outpatient (AMB) | payer SELFPAY ==
--- NOTE | 2023-06-21 08:08 | A.OFFVIS_ITS ---
Intake Vital Signs 06/21/23 08:13 Height 5 ft 9 in Weight 160 lb 4.417 oz BMI 23.7 BP 110/82 Blood Pressure Location Lt brachial Position Sitting Pulse 79 Pulse Source Pulse Oximeter Temp 97.9 F Temp Source Skin Pulse Oximetry (%) 98 Oxygen Delivery Method Room Air Intake Visit Reasons: PsA Intake Note: Pt last seen 05/09/23, presents today for follow up and test results. 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 Required: No Accompanied by: Self / Same As Patient Allergies No Known Allergies Allergy (Verified 06/21/23 08:08) Medication List - Last Reconciled 06/21/23 by Rosemarie Aiken MD adalimumab inject one - 40 mg/0.4 mL pen every 2 weeks subcut losartan-hydrochlorothiazide 50-12.5 mg 1 tab PO DAILY mirtazapine 15 mg PO BEDTIME naproxen (Naprosyn) 500 mg PO DAILY omeprazole 20 mg PO DAILY 90 days tiotropium bromide 2.5 mcg/actuation (Spiriva Respimat) 2 puffs inhalation QAM Ventolin HFA 90 mcg/actuation (albuterol sulfate) 1 puff inhalation QID PRN NS HPI HPI Comments History of Present Illness Details 52-year-old male with psoriasis returns for follow-up after completion of his diagnostic workup. Continues to feel about the same Initial history: This is a 52-year-old male with psoriasis who presents for evaluation of psoriatic arthritis. Patient states that he was diagnosed with psoriasis about 6 years ago. He was started on methotrexate 1 tab daily 6 days a week which cleared up his skin, then he was starting to have joint pain. He was switched to Humira by his Dermatology which was also quite effective for his skin but continued to have the same joint pain. Patient states that he has chronic low back pain. Morning stiffness lasting few minutes, he also has bilateral knee pain worse with activity and standing. He also has bilateral hand numbness. He denies any joint swelling except for when he was bit by a snake in his right knee 6 years ago and he had multiple right knee arthrocentesis. 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 Cognitive needs: No Hearing needs: No Vision needs: No Review of Systems ENT Reports neck pain Musc Reports back pain, Reports arthralgias and Reports neck pain Physical Exam Vital Signs: Last Vital Signs Temp 97.9 F 06/21/23 08:13 Pulse 79 06/21/23 08:13 BP 110/82 06/21/23 08:13 Pulse Ox 98 06/21/23 08:13 Oxygen Delivery Method Room Air 06/21/23 08:13 BMI result Body Mass Index 23.7 Const General: cooperative, healthy appearing and comfortable Nutritional Appearance: average body habitus Orientation/consciousness: patient oriented x3 Limitations: no limitations HEENT Head: Yes normocephalic and Yes atraumatic Resp Effort & Inspection: normal respiratory effort and able to speak in complete sentences Neuro General: patient oriented x3 Assessment & Plan Assessment & Plan (1) Polyarthralgia: Code(s): M25.50 - Pain in unspecified joint Plan: This is a 52-year-old male with a past medical history of psoriasis diagnosed 6 years ago who presents for evaluation of multiple joint pain. He is on adalimumab prescribed by Dermatology Upon evaluation I do not see any active synovitis. X-rays of involved joints are rather consistent with degenerative arthritis rather than inflammatory arthritis. I discussed degenerative arthritis and different treatment options. Patient states that his sister is a physical therapist and he will reach out to her to discuss exercises for cervical and lumbar arthritis. We discussed pain management evaluation for continued pain. We discussed features of inflammatory arthritis. Advised patient to return to clinic if he has any new or worsening symptoms (2) Carpal tunnel syndrome, bilateral: Code(s): G56.03 - Carpal tunnel syndrome, bilateral upper limbs Plan: Check bilateral upper extremity EMG/NCV to evaluate for CTS/radiculopathy. Schedule today. Will call patient with the results Plan I spent 16 minutes reviewing patient's chart, evaluating patient, counseling patient and documenting in the chart Coding Level of Care Code Est Pt Level 3 (24172) Diagnoses Polyarthralgia M25.50 Carpal tunnel syndrome, bilateral G56.03
[2023-06-21 08:13] VITALS: BP 110/82; PULSE 79; TEMP 36.6; O2SAT 98; BMI 23.7
== END 2023-06-21 08:25 | disposition home or self-care (01) ==
PROVIDERS: PCP Internal Medicine; Visit Provider Student in an Organized Health Care Education/Training Program
DX: M25.50 Pain in unspecified joint (principal); G56.03 Carpal tunnel syndrome, bilateral upper limbs
CPT/HCPCS: 99213

== ENCOUNTER 2023-06-21 08:51 | Outpatient (REF) | payer OTHER, SELFPAY ==
--- NOTE | 2023-06-21 | EMG_ITS ---
Chief complaint: history of psoriasis, finger numbness especially in the morning or at night, chronic neck pain Reason for referral: Evaluate for Carpal Tunnel Syndrome versus radiculopathy Referred by: Dr. Aiken Procedure done: Bilateral upper extremities NCS/EMG Precautions and/or limitations: None The limb temperature was monitored continuously and remained between 32-36 degrees C during the performance of the NCS. Nerve Conduction Studies Anti Sensory Summary Table ?Stim Site NR Onset (ms) Norm Onset (ms) Peak (ms) Norm Peak (ms) O-P Amp (?V) Norm O-P Amp Site1 Site2 Delta-0 (ms) Dist (cm) Macario (m/s) Norm Macario (m/s) Left Median Anti Sensory (2nd Digit) Wrist ? 3.2 3.9 <3.6 29.8 >10 Wrist 2nd Digit 3.2 14.0 44 Right Median Anti Sensory (2nd Digit) Wrist ? 2.8 3.7 <3.6 26.6 >10 Wrist 2nd Digit 2.8 14.0 50 Left Ulnar Anti Sensory (5th Digit) Wrist ? 2.7 3.6 <3.7 11.7 >15.0 Wrist 5th Digit 2.7 14.0 52 Right Ulnar Anti Sensory (5th Digit) Wrist ? 2.6 3.4 <3.7 24.1 >15.0 Wrist 5th Digit 2.6 14.0 54 Motor Summary Table ?Stim Site NR Onset (ms) Norm Onset (ms) O-P Amp (mV) Norm O-P Amp iAmp (mV) Amp (1st) (%) Site1 Site2 Delta-0 (ms) Dist (cm) Macario (m/s) Norm Macario (m/s) Left Median Motor (Abd Poll Brev) Wrist ? 3.9 <3.9 9.9 >4.5 11.0 100.0 Elbow Wrist 4.5 23.0 51 >45 Elbow ? 8.4 7.9 9.1 79.8 Right Median Motor (Abd Poll Brev) Wrist ? 3.8 <3.9 10.4 >4.5 11.7 100.0 Elbow Wrist 4.2 22.5 54 >45 Elbow ? 8.0 10.7 12.0 102.9 Left Ulnar Motor (Abd Dig Minimi) Wrist ? 2.8 <3.0 6.3 >5 7.6 100.0 B Elbow Wrist 3.7 19.5 53 >45 B Elbow ? 6.5 4.5 5.6 71.4 A Elbow B Elbow 2.0 10.0 50 >45 A Elbow ? 8.5 4.5 5.5 71.4 Right Ulnar Motor (Abd Dig Minimi) Wrist ? 2.7 <3.0 7.7 >5 8.2 100.0 B Elbow Wrist 3.6 21.0 58 >45 B Elbow ? 6.3 5.5 7.5 71.4 A Elbow B Elbow 1.4 10.0 71 >45 A Elbow ? 7.7 5.3 7.2 68.8 Comparison Summary Table ?Stim Site NR Peak (ms) Norm Peak (ms) P-T Amp (?V) Site1 Site2 Delta-P (ms) Norm Delta (ms) Right Median/Radial Dig I Comparison (Digit 1 - 10cm) Median ? 2.8 <2.9 26.4 Median Radial 0.4 Radial ? 2.4 <2.8 7.8 EMG ?Side Muscle Nerve Root Ins Act Fibs Psw Amp Dur Poly Recrt Int Pat Comment Right 1stDorInt Ulnar C8-T1 Nml Nml Nml Nml Nml 0 Nml Complete Right FlexCarRad Median C6-7 Nml Nml Nml Nml Nml 0 Nml Complete Right Biceps Musculocut C5-6 Nml Nml Nml Nml Nml 0 Nml Complete Right Triceps Radial C6-7-8 Nml Nml Nml Nml Nml 0 Nml Complete Right Deltoid Axillary C5-6 Nml Nml Nml Nml Nml 0 Nml Complete Left 1stDorInt Ulnar C8-T1 Nml Nml Nml Nml Nml 0 Nml Complete Left FlexCarRad Median C6-7 Nml Nml Nml Nml Nml 0 Nml Complete Left Biceps Musculocut C5-6 Nml Nml Nml Nml Nml 0 Nml Complete Left Triceps Radial C6-7-8 Nml Nml Nml Nml Nml 0 Nml Complete Left Deltoid Axillary C5-6 Nml Nml Nml Nml Nml 0 Nml Complete Paraspinal EMG ?Side Muscle Nerve Root Ins Act Fibs Psw Comment Right Cervical Upper Rami Nml Nml Nml Right Cervical Mid Rami Nml Nml Nml Right Cervical Lower Rami Nml Nml Nml Left Cervical Upper Rami Nml Nml Nml Left Cervical Mid Rami Nml Nml Nml Left Cervical Lower Rami Nml Nml Nml FINDINGS: Bilateral median sensory nerves showed slightly prolonged peak latency. Right median and radial sensory interlatency difference of 0.4. All other nerves tested were within normal. Concentric needle EMG was performed in selected muscles of the bilateral upper extremities and cervical paraspinals. Study did not reveal signs of electric abnormalities as shown in the table below. IMPRESSION: 1. This is an abnormal study. 2. There is electrodiagnostic evidence for bilateral mild median neuropathy at the wrist, consistent with carpal tunnel syndrome. 3. There is no electrodiagnostic evidence for ulnar neuropathy, brachial plexopathy, or cervical radiculopathy. Thank you for your kind referral. Rebecca Norwood MD, YOSHI Board Certified, [place] Board [employer] Physical Medicine and Rehabilitation (ABPMR) Board Certified, [place] Board of Electrodiagnostic Medicine (ABEM) CODIN 27637 x 2 MTDD
== END 2023-06-21 08:52 | disposition home or self-care (01) ==
LOC: HO.NEURO 08:51
PROVIDERS: PCP Internal Medicine; Visit Provider Student in an Organized Health Care Education/Training Program
DX: G56.03 Carpal tunnel syndrome, bilateral upper limbs (principal); M25.50 Pain in unspecified joint
CPT/HCPCS: 95886; 95911; 99212

== ENCOUNTER → 2023-06-21 08:54 | Outpatient (BNV) | payer SELFPAY | PROVIDERS: PCP Internal Medicine; Visit Provider Physical Medicine & Rehabilitation | DX: G56.13 Other lesions of median nerve, bilateral upper limbs (principal); G56.03 Carpal tunnel syndrome, bilateral upper limbs | CPT/HCPCS: 95886; 95911 ==

== ENCOUNTER 2023-07-24 09:41 | Outpatient (AMB) | payer OTHER, SELFPAY ==
--- NOTE | 2023-07-24 09:44 | MHC.PC.OV ---
Vital Signs 07/24/23 09:48 Height 59 ft Weight 164 lb 2 oz BMI 0.2 BP 124/80 Blood Pressure Location Lt brachial Position Sitting Pulse 78 Pulse Source Pulse Oximeter Pulse Oximetry (%) 98 Oxygen Delivery Method Room Air Intake Visit Reasons: 3 Month follow up Allergies No Known Allergies Allergy (Verified 07/24/23 09:44) Medication List - Last Reconciled 07/24/23 by Chandu Ji MD adalimumab inject one - 40 mg/0.4 mL pen every 2 weeks subcut losartan-hydrochlorothiazide 50-12.5 mg 1 tab PO DAILY mirtazapine 15 mg PO BEDTIME naproxen (Naprosyn) 500 mg PO DAILY omeprazole 20 mg PO DAILY 90 days tiotropium bromide 2.5 mcg/actuation (Spiriva Respimat) 2 puffs inhalation QAM Ventolin HFA 90 mcg/actuation (albuterol sulfate) 1 puff inhalation QID PRN NS [wrist splint wear nightly and as much as possible throughout the day] Tobacco use date assessed: 07/24/23 Dental Screening Dental Screen Date: 07/24/23 Did you have a dental visit in the last 12 months?: Yes Did you have a dental problem in the last 6 months where you did not have access to dental care?: No Was dental information given to patient?: Patient has dentist HPI 3 Month follow up HPI Details 53-year-old male came in today for regular follow-up appointment patient is doing well, offer no new c/o Patient has psoriatic arthritis currently he is seeing foreign trade teacher and taking medications through them Winter months is causing some discomfort in the joints but he is trying to stay warm Patient continued to smoke he has cut down to half a pack per day .once again we discussed that it is very important that patient stop smoking He is taking Advair inhaler regularly. And Spiriva as well, his lungs are clear today GERD is stable with omeprazole 20 mg Hypertension: Blood pressure stable, patient is on losartan hydrochlorothiazide 50-12.5 mg Sleeping difficulty: Patient is taking mirtazapine half a tablet over the weekends. 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 1. Little interest or pleasure in doing things: several days 2. Feeling down, depressed, or hopeless: not at all 3. Trouble falling or staying asleep, or sleeping too much: several days 4. Feeling tired or having little energy: several days 5. Poor appetite or overeating: not at all 6. Feeling bad about yourself - or that you are a failure or have let yourself or your family down: several days 7. Trouble concentrating on things, such as reading the newspaper or watching television: not at all 8. Moving or speaking so slowly that other people could have noticed. Or the opposite - being so fidgety or restless that you have been moving around a lot more than usual: not at all 9. Thoughts that you would be better off or of hurting yourself in some way: not at all Total score: 4 Depression Screening Interpretation: Negative Depression Screening Done: Yes 68133 - PHQ-9 Billing: Yes Source: Developed by Drs. Jerman El, Ruby Galaviz, Carlos Rocha and colleagues, with an educational hina from [employer]. Thrive Questionnaire Date Thrive assessed: 07/24/23 I am a: Patient What is your living situation today?: I have a steady place to live Within the past 12 months, did the food you bought not last and you didn't have the money to get more?: Sometimes True Within the past 12 months, did you worry whether your food would run out before you got money to buy more?: Sometimes True Do you have trouble paying for medicines?: No Do you have trouble getting transportation to medical appointments?: No Do you have trouble paying your heating and electricity bill?: No Do you have trouble taking care of your child, family member or friend?: No Do you have trouble with day-to-day activities such as bathing, preparing meals, shopping, managing finances, etc.?: No Are you currently unemployed and looking for a job?: No Are you interested in more education?: No Please select the resources that you would like help with: Food Currently or been in a relationship where the following occur: no concerns reported AUDIT C Alcohol Use Questionnaire (AUDIT-C) 1. How often do you have a drink containing alcohol?: 2-4 times a month 2. How many drinks containing alcohol do you have on a typical day when you are drinking?: 1 or 2 3. How often do you have six or more drinks on one occasion?: Never Total Score: 2 Score Reviewed/Action Taken: Yes DESTINEY-7 AMB Questionnaire DESTINEY-7 Date DESTINEY - 7 assessed: 07/24/23 Feeling nervous, anxious, or on edge: 0 = Not at all Not being able to stop or control worryin = Several days Worrying too much about different things: 1 = Several days Trouble relaxin = Several days Being so restless that it is hard to sit still: 1 = Several days Becoming easily annoyed or irritable: 1 = Several days Feeling afraid as if something awful might happen: 0 = Not at all Total DESTINEY-7 score (0-4 normal; 5-9 mild; 10-14 moderate; 15-21 severe): 5 Source: Developed by Drs. Jerman El, Ruby Galaviz, Carlos Rocha and colleagues, with an educational hina from [employer]. DESTINEY-7 Assessment Billing DESTINEY-7 Assessment Tool: DESTINEY-7 Assessment 81291 Review of Systems Const Denies chills and Denies fever(s) ENT Denies epistaxis and Denies nasal discharge Card Denies chest pain Resp Denies chest congestion, Denies cough and Denies hemoptysis GI Denies diarrhea and Denies nausea Skin/Breast Denies rash Neuro Reports no additional complaints Psych Reports no additional complaints Endo Reports no additional complaints Physical exam (Primary Care) Vital Signs: Last Vital Signs Pulse 78 07/24/23 09:48 BP 124/80 07/24/23 09:48 Pulse Ox 98 07/24/23 09:48 Oxygen Delivery Method Room Air 07/24/23 09:48 BMI result Body Mass Index 0.2 Tobacco/Smoking Status: Tobacco use Status Tobacco use date assessed 07/24/23 07/24/23 09:46 Patient Tobacco Use Status Current everyday Tobacco 07/24/23 09:46 e-Cigarette/Vaping Use Never Used 07/24/23 09:46 Are you ready to quit: Yes Tobacco cessation counseling provided: Yes Relapse Prevention: discussed the importance of a supportive environment and weight gain after smoking is common CPT code: 25781 - 4-10 Minutes PHQ-9: PHQ-9 Score PHQ-9: Total score 4 07/24/23 09:51 Depression Screening Interpretation: Negative Thrive Assessment: Date of Thrive Assessment Date Thrive assessed 07/24/23 07/24/23 09:51 Currently or been in a relationship where the following occur: no concerns reported Const General: cooperative, comfortable and no acute distress Orientation/consciousness: patient oriented x3 HENMT Head: Yes normocephalic Eyes General: appearance normal, both eyes and all related structures Neck Neck: Yes supple Resp Effort & Inspection: normal respiratory effort, no cough and no stridor Cardio Rhythm: regular rhythm Heart sounds: S1 normal heart sound present and S2 normal heart sound present Skin General skin exam: turgor normal Neuro General: patient oriented x3, tone normal and moves all extremities Extrem Right lower extremity: no edema Left lower extremity: no edema Assessment and Plan Assessment & Plan (1) Hypertension, essential: Code(s): I10 - Essential (primary) hypertension (2) Psoriatic arthritis: Code(s): L40.50 - Arthropathic psoriasis, unspecified (3) Tobacco abuse: Code(s): Z72.0 - Tobacco use (4) Chronic GERD: Code(s): K21.9 - Gastro-esophageal reflux disease without esophagitis (5) COPD mixed type: Code(s): J44.9 - Chronic obstructive pulmonary disease, unspecified (6) Asthma, moderate persistent: Code(s): J45.40 - Moderate persistent asthma, uncomplicated Qualifiers: Asthma complication type: uncomplicated Qualified Code(s): J45.40 - Moderate persistent asthma, uncomplicated (7) Difficulty sleeping: Code(s): G47.9 - Sleep disorder, unspecified Plan 53-year-old male came in today for regular follow-up appointment patient is doing well, offer no new c/o Patient has psoriatic arthritis currently he is seeing foreign trade teacher and taking medications through them Winter months is causing some discomfort in the joints but he is trying to stay warm Patient continued to smoke he has cut down to half a pack per day .once again we discussed that it is very important that patient stop smoking He is taking Advair inhaler regularly. And Spiriva as well, his lungs are clear today GERD is stable with omeprazole 20 mg Hypertension: Blood pressure stable, patient is on losartan hydrochlorothiazide 50-12.5 mg Sleeping difficulty: Patient is taking mirtazapine half a tablet over the weekends. He will return in 3 months for follow-up labs are needed before visit Orders: Orders LDL Cholesterol Direct Today I10 - Essential (primary) hypertension, J44.9 - Chronic obstructive pulmonary disease, unspecified, K21.9 - Gastro-esophageal reflux disease without esophagitis, L40.50 - Arthropathic psoriasis, unspecified, Z72.0 - Tobacco use Complete Blood Count Auto Diff Today I10 - Essential (primary) hypertension, J44.9 - Chronic obstructive pulmonary disease, unspecified, K21.9 - Gastro-esophageal reflux disease without esophagitis, L40.50 - Arthropathic psoriasis, unspecified, Z72.0 - Tobacco use Comprehensive Met. Panel Today I10 - Essential (primary) hypertension, J44.9 - Chronic obstructive pulmonary disease, unspecified, K21.9 - Gastro-esophageal reflux disease without esophagitis, L40.50 - Arthropathic psoriasis, unspecified, Z72.0 - Tobacco use Coding Level of Care Code Est Pt Level 4 (16890) Diagnoses Hypertension, essential I10 Psoriatic arthritis L40.50 Tobacco abuse Z72.0 Chronic GERD K21.9 COPD mixed type J44.9 Moderate persistent asthma without complication J45.40 Asthma complication type: uncomplicated Difficulty sleeping G47.9 Additional Codes DESTINEY-7 Assessment Billing - DESTINEY-7 Assessment Tool: DESTINEY-7 Assessment 17613 ([id number]) Vital Signs *Quality* - CPT code: 42515 - 4-10 Minutes ([id number])
[2023-07-24 09:48] VITALS: BP 124/80; PULSE 78; O2SAT 98
== END 2023-07-24 11:33 | disposition home or self-care (01) ==
PROVIDERS: PCP Internal Medicine; Visit Provider Internal Medicine
DX: I10 Essential (primary) hypertension (principal); J44.9 Chronic obstructive pulmonary disease, unspecified; L40.50 Arthropathic psoriasis, unspecified; Z72.0 Tobacco use; K21.9 Gastro-esophageal reflux disease without esophagitis; J45.40 Moderate persistent asthma, uncomplicated; G47.9 Sleep disorder, unspecified
CPT/HCPCS: 99214

== ENCOUNTER 2023-10-03 11:12 | Outpatient (REF) | payer OTHER, SELFPAY ==
[2023-10-03 13:19] LABS: MANUAL DIFF FLAG NO
[2023-10-03 13:44] LABS: Basophils Absolute Auto 0.1 X10*3/uL (0.0-0.2); Basophils Percent Auto 0.4 % (0-2); Eosinophils Absolute Auto 0.3 X10*3/uL (0.0-0.4); Eosinophils Percent Auto 1.6 % (0-4); Hematocrit 43.3 % (42.0-52.0); Hemoglobin 15.3 g/dl (14.0-18.0); Imm Gran Abs Auto 0.07 X10*3/uL (0.00-0.03); Imm Gran Pct Auto 0.4 % (0.0-0.4); Lymphocytes Absolute Auto 3.5 X10*3/uL (1.2-4.9); Lymphocytes Percent Auto 19.3 % (20-40); Mean Corpuscular HGB Conc 35.3 g/dl (31.0-36.0); Mean Corpuscular Hemoglobin 32.7 pg (27.0-33.0); Mean Corpuscular Volume 92.5 fL (80.0-98.0); Monocytes Absolute Auto 1.1 X10*3/uL (0.1-1.2); Monocytes Percent Auto 5.9 % (2-11); Neutrophils Absolute Auto 13.3 x10*3/uL (2.0-8.3); Neutrophils Percent Auto 72.4 % (45-73); Platelet Count 274 X10*3/uL (160-400); Red Blood Count 4.68 X10*6/uL (4.60-5.80); Red Cell Distribution Width 12.1 % (11.0-16.0); White Blood Count 18.3 X10*3/uL (4.8-10.8)
[2023-10-03 13:50] LABS: Alanine Aminotransferase 14 U/L (0-40); Albumin Level 4.3 g/dL (3.5-5.0); Alkaline Phosphatase 76 U/L (39-117); Anion Gap 14 (12-20); Aspartate Amino Transferase 17 U/L (5-37); Bilirubin Total 0.5 mg/dL (0.0-1.0); Blood Urea Nitrogen 9 mg/dL (9-16); Calcium 9.6 mg/dL (8.4-10.2); Carbon Dioxide 26 mmol/L (22-29); Chloride 103 mmol/L (96-108); Estimated Glomerular Filt Rate > 60; Glucose Random 95 mg/dL (60-115); Potassium 3.4 mmol/L (3.3-5.1); Sodium 140 mmol/L (135-145); Total Protein 7.3 g/dL (6.5-8.0)
[2023-10-04 16:08] LABS: LDL Cholesterol Direct 130 mg/dL (<100)
== END 2023-10-03 11:13 | disposition home or self-care (01) ==
LOC: HO.HMGCLDS 11:12
PROVIDERS: PCP Internal Medicine; Visit Provider Internal Medicine
DX: I10 Essential (primary) hypertension (principal); L40.50 Arthropathic psoriasis, unspecified; K21.9 Gastro-esophageal reflux disease without esophagitis; J44.9 Chronic obstructive pulmonary disease, unspecified; Z72.0 Tobacco use
CPT/HCPCS: 36415; 80053; 83721; 85025

== ENCOUNTER 2023-10-04 08:28 | Outpatient (AMB) | payer OTHER, SELFPAY ==
--- NOTE | 2023-10-04 08:30 | MHC.PC.OV ---
Vital Signs 10/04/23 08:31 Height 5 ft 9 in Weight 164 lb 2 oz BMI 24.2 BP 132/80 Blood Pressure Location Lt brachial Position Sitting Pulse 70 Pulse Source Pulse Oximeter Pulse Oximetry (%) 96 Oxygen Delivery Method Room Air Intake Visit Reasons: PE Allergies No Known Allergies Allergy (Verified 10/04/23 08:31) Medication List - Last Reconciled 10/04/23 by Chandu Ji MD adalimumab inject one - 40 mg/0.4 mL pen every 2 weeks subcut losartan-hydrochlorothiazide 50-12.5 mg 1 tab PO DAILY mirtazapine 15 mg PO BEDTIME naproxen (Naprosyn) 500 mg PO DAILY omeprazole 20 mg PO DAILY 90 days tiotropium bromide 2.5 mcg/actuation (Spiriva Respimat) 2 puffs inhalation QAM Ventolin HFA 90 mcg/actuation (albuterol sulfate) 1 puff inhalation QID PRN NS [wrist splint wear nightly and as much as possible throughout the day] Tobacco use date assessed: 10/04/23 Dental Screening Dental Screen Date: 10/04/23 Did you have a dental visit in the last 12 months?: No Did you have a dental problem in the last 6 months where you did not have access to dental care?: No Was dental information given to patient?: Patient has dentist HPI PE HPI Details 53-year-old male came in today for annual physical examination Patient had colonoscopy 3 years ago at [facility] Asthma: Stable with Spiriva and Advair, , however continued to smoke 1/2 pack per day. We discussed smoking again , and set up a new goal of 5 cigarettes by the time he sees me again in 4 months if he can not stop altogether GERD is stable with omeprazole 20 mg Patient have psoriatic arthritis and is taking adalimumanb through rheumatology and naproxen as needed His psoriasis is worse since he started this medication, he was doing better with Humira, he will discuss it further with his Rheumatology Hypertension: His blood pressure is stable Lab done recently reviewed Patient is on mirtazapine 15 mg to sleep at night Follow-up 4 months and physical exam year FORMERLY [facility], [facility] Medical History Diverticulitis Family History Daughter Crohn's colitis Social History Housing: House Alcohol intake: current Alcohol intake frequency: a few times a month Patient Tobacco Use Status: Current everyday Tobacco user Cigarette Packs Per Day: 1 e-Cigarette/Vaping Use: Never Used service: No Current occupational status: employed 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 1. Little interest or pleasure in doing things: not at all 2. Feeling down, depressed, or hopeless: not at all 3. Trouble falling or staying asleep, or sleeping too much: several days 4. Feeling tired or having little energy: several days 5. Poor appetite or overeating: not at all 6. Feeling bad about yourself - or that you are a failure or have let yourself or your family down: not at all 7. Trouble concentrating on things, such as reading the newspaper or watching television: not at all 8. Moving or speaking so slowly that other people could have noticed. Or the opposite - being so fidgety or restless that you have been moving around a lot more than usual: several days 9. Thoughts that you would be better off or of hurting yourself in some way: not at all Total score: 3 Depression Screening Interpretation: Negative Depression Screening Done: Yes 51036 - PHQ-9 Billing: Yes Source: Developed by Drs. Jerman El, Ruby Galaviz, Carlos Rocha and colleagues, with an educational hina from [employer]. Thrive Questionnaire Date Thrive assessed: 10/04/23 I am a: Patient What is your living situation today?: I have a steady place to live Within the past 12 months, did the food you bought not last and you didn't have the money to get more?: Sometimes True Within the past 12 months, did you worry whether your food would run out before you got money to buy more?: Sometimes True Do you have trouble paying for medicines?: No Do you have trouble getting transportation to medical appointments?: No Do you have trouble paying your heating and electricity bill?: No Do you have trouble taking care of your child, family member or friend?: No Do you have trouble with day-to-day activities such as bathing, preparing meals, shopping, managing finances, etc.?: No Are you currently unemployed and looking for a job?: No Are you interested in more education?: No Please select the resources that you would like help with: None Currently or been in a relationship where the following occur: no concerns reported THRIVE Score: 2 AUDIT C Alcohol Use Questionnaire (AUDIT-C) 1. How often do you have a drink containing alcohol?: 2-4 times a month 2. How many drinks containing alcohol do you have on a typical day when you are drinking?: 1 or 2 3. How often do you have six or more drinks on one occasion?: Never Total Score: 2 Score Reviewed/Action Taken: Yes DESTINEY-7 AMB Questionnaire DESTINEY-7 Date DESTINEY - 7 assessed: 10/04/23 Feeling nervous, anxious, or on edge: 0 = Not at all Not being able to stop or control worryin = Several days Worrying too much about different things: 1 = Several days Trouble relaxin = Several days Being so restless that it is hard to sit still: 1 = Several days Becoming easily annoyed or irritable: 1 = Several days Feeling afraid as if something awful might happen: 0 = Not at all Total DESTINEY-7 score (0-4 normal; 5-9 mild; 10-14 moderate; 15-21 severe): 5 Source: Developed by Drs. Jerman El, Ruby Galaviz, Carlos Rocha and colleagues, with an educational hina from [employer]. DESTINEY-7 Assessment Billing DESTINEY-7 Assessment Tool: DESTINEY-7 Assessment 66079 Review of Systems Const Denies chills, Denies fever(s) and Denies headache(s) Eyes Denies blurry vision ENT Denies headache(s), Denies nasal discharge, Denies nasal obstruction, Denies odynophagia and Denies sinus pain Card Denies chest pain at rest and Denies chest pain with activity Resp Denies cough and Denies hemoptysis GI Denies diarrhea, Denies odynophagia, Denies vomiting and Denies hematemesis Reports as per HPI Musc Denies abnormal gait Skin/Breast Reports as per HPI Neuro Denies Neuro-related abnormal movements, Denies Abnormal speech present, Denies abnormal gait, Denies headache(s) and Denies Sensory deficit (Neuro) Psych Denies mood swings and Denies paranoia Endo Reports as per HPI Pako/Lymph Reports as per HPI Aller/Immun Reports as per HPI Physical exam (Primary Care) Vital Signs: Last Vital Signs Pulse 70 10/04/23 08:31 BP 132/80 10/04/23 08:31 Pulse Ox 96 10/04/23 08:31 Oxygen Delivery Method Room Air 10/04/23 08:31 BMI result Body Mass Index 24.2 Tobacco/Smoking Status: Tobacco use Status Tobacco use date assessed 10/04/23 10/04/23 08:34 Patient Tobacco Use Status Current everyday Tobacco 10/04/23 08:34 e-Cigarette/Vaping Use Never Used 10/04/23 08:34 PHQ-9: PHQ-9 Score PHQ-9: Total score 3 10/04/23 08:39 Depression Screening Interpretation: Negative Thrive Assessment: Date of Thrive Assessment Date Thrive assessed 10/04/23 10/04/23 08:35 Currently or been in a relationship where the following occur: no concerns reported Const General: cooperative, comfortable and no acute distress Orientation/consciousness: patient oriented x3 HENMT Head: Yes normocephalic and Yes atraumatic Eyes General: appearance normal, both eyes and all related structures Pupils: Equal, round and reactive pupils present EOM: EOMs intact bilaterally Neck Neck: Yes supple and No lymphadenopathy Thyroid: Thyroid normal Lymphatic: no lymphadenopathy noted Resp Effort & Inspection: normal respiratory effort and able to speak in complete sentences Auscultation: clear to auscultation bilaterally Cardio Heart sounds: S1 normal heart sound present and S2 normal heart sound present GI Palpation (GI): Soft to palpation and nontender Auscultation: normal bowel sounds General: Yes no CVA tenderness Back/Spine/Pelvis Back: no CVA tenderness Skin Other: Psoriatic rash on different parts of body General skin exam: elasticity normal and turgor normal Neuro General: patient oriented x3 and gait normal Cranial nerves: Yes Equal, round and reactive pupils present Speech: No Abnormal speech present Sensory Exam: No Sensory deficit (Neuro) Coordination: tandem gait normal and Romberg test negative Extrem General: Yes normal exam except as noted and No edema Assessment and Plan Assessment & Plan (1) Encounter for general adult medical examination with abnormal findings: Code(s): Z00.01 - Encounter for general adult medical examination with abnormal findings (2) Hypertension, essential: Code(s): I10 - Essential (primary) hypertension (3) Psoriatic arthritis: Code(s): L40.50 - Arthropathic psoriasis, unspecified (4) Tobacco abuse: Code(s): Z72.0 - Tobacco use (5) Chronic GERD: Code(s): K21.9 - Gastro-esophageal reflux disease without esophagitis (6) COPD mixed type: Code(s): J44.9 - Chronic obstructive pulmonary disease, unspecified (7) Asthma, moderate persistent: Code(s): J45.40 - Moderate persistent asthma, uncomplicated Qualifiers: Asthma complication type: uncomplicated Qualified Code(s): J45.40 - Moderate persistent asthma, uncomplicated (8) Difficulty sleeping: Code(s): G47.9 - Sleep disorder, unspecified Plan 53-year-old male came in today for annual physical examination Patient had colonoscopy 3 years ago at [facility] Asthma: Stable with Spiriva and Advair, , however continued to smoke 1/2 pack per day. We discussed smoking again , and set up a new goal of 5 cigarettes by the time he sees me again in 4 months if he can not stop altogether GERD is stable with omeprazole 20 mg Patient have psoriatic arthritis and is taking adalimumanb through rheumatology and naproxen as needed Hypertension: His blood pressure is stable Lab done recently reviewed Patient is on mirtazapine 15 mg to sleep at night Follow-up 4 months and physical exam year Orders: Orders Complete Blood Count Auto Diff 3 Months I10 - Essential (primary) hypertension, J45.40 - Moderate persistent asthma, uncomplicated, L40.50 - Arthropathic psoriasis, unspecified Comprehensive Met. Panel 3 Months I10 - Essential (primary) hypertension, J45.40 - Moderate persistent asthma, uncomplicated, L40.50 - Arthropathic psoriasis, unspecified Coding Level of Care Code Est Pt Prev Care 40-64y(41893) Diagnoses Encounter for general adult medical examination with abnormal findings Z00.01 Hypertension, essential I10 Psoriatic arthritis L40.50 Tobacco abuse Z72.0 Chronic GERD K21.9 COPD mixed type J44.9 Moderate persistent asthma without complication J45.40 Asthma complication type: uncomplicated Difficulty sleeping G47.9 Additional Codes DESTINEY-7 Assessment Billing - DESTINEY-7 Assessment Tool: DESTINEY-7 Assessment 68059 ([id number])
[2023-10-04 08:31] VITALS: BP 132/80; PULSE 70; O2SAT 96; BMI 24.2
== END 2023-10-04 10:29 | disposition home or self-care (01) ==
PROVIDERS: Visit Provider Internal Medicine
DX: Z00.00 Encounter for general adult medical examination without abnormal findings (principal); L40.50 Arthropathic psoriasis, unspecified; J44.9 Chronic obstructive pulmonary disease, unspecified; I10 Essential (primary) hypertension; Z72.0 Tobacco use; K21.9 Gastro-esophageal reflux disease without esophagitis; J45.40 Moderate persistent asthma, uncomplicated; G47.9 Sleep disorder, unspecified
CPT/HCPCS: 99396

== ENCOUNTER 2023-11-22 07:53 | Outpatient (REF) | payer OTHER, SELFPAY ==
[2023-11-24 19:43] LABS: TS Negative Control Passed; TS Panel A 0; TS Panel B 0; TS Positive Control Passed; TSpotTB Negative (Negative)
== END 2023-11-22 07:54 | disposition home or self-care (01) ==
LOC: HO.HMGCLDS 07:53
PROVIDERS: PCP Internal Medicine; Visit Provider Physician Assistant Medical
DX: L40.0 Psoriasis vulgaris (principal); L40.59 Other psoriatic arthropathy; Z79.899 Other long term (current) drug therapy
CPT/HCPCS: 36415; 86481

== ENCOUNTER 2024-01-28 10:49 | Outpatient (AMB) | payer OTHER, SELFPAY ==
--- NOTE | 2024-01-28 10:57 | A.OFFPC_ITS ---
Vital Signs 01/28/24 10:58 Height 5 ft 9 in Weight 154 lb BMI 22.7 BP 128/80 Blood Pressure Location Lt brachial Position Sitting Pulse 87 Pulse Oximetry (%) 97 Oxygen Delivery Method Room Air Intake Visit Reasons: Follow up Allergies No Known Allergies Allergy (Verified 01/28/24 10:57) Medication List - Last Reconciled 01/28/24 by Chandu Ji MD adalimumab inject one - 40 mg/0.4 mL pen every 2 weeks subcut losartan-hydrochlorothiazide 50-12.5 mg 1 tab PO DAILY mirtazapine 15 mg PO BEDTIME naproxen (Naprosyn) 500 mg PO DAILY omeprazole 20 mg PO DAILY 90 days tiotropium bromide 2.5 mcg/actuation (Spiriva Respimat) 2 puffs inhalation QAM Ventolin HFA 90 mcg/actuation (albuterol sulfate) 1 puff inhalation QID PRN NS [wrist splint wear nightly and as much as possible throughout the day] Tobacco use date assessed: 01/28/24 Dental Screening Dental Screen Date: 10/04/23 HPI Follow up HPI Details 53-year-old male came in today for four- month follow-up appointment Labs were done September of this year reviewed New set of lab order placed to be done before next visit in 4 months His daughter is , I see that he is due for Tdap Vaccine was administered today Patient had colonoscopy 3 years ago at [facility] Asthma: Stable with Spiriva and Advair, , however continued to smoke 1/2 pack per day. We discussed smoking again , and set up a new goal of 5 cigarettes by the time he sees me again in 4 months if he can not stop altogether GERD is stable with omeprazole 20 mg Patient have psoriatic arthritis and is taking adalimumanb through rheumatology and naproxen as needed His psoriasis is worse since he started this medication, he was doing better with Humira, he will discuss it further with his Rheumatology Patient is complaining of lot of aches and pains in his body Including neck pain I am starting him on gabapentin 100 mg capsule he may double the dose after 2 or 3 days if there is no reaction He is taking mirtazapine as a sleep aid Once he starts taking 200 mg of gabapentin I would recommend to taper off the mirtazapine Hypertension: His blood pressure is stable Patient is on mirtazapine 15 mg to sleep at night We will set up 2 week telephone visit to follow up on gabapentin and mirtazapine Regular follow-up in 4 weeks [facility] Medical History Diverticulitis Family History Daughter Crohn's colitis Social History Housing: House Alcohol intake: current Alcohol intake frequency: a few times a month Patient Tobacco Use Status: Current everyday Tobacco user Cigarette Packs Per Day: 1 e-Cigarette/Vaping Use: Never Used service: No Current occupational status: employed 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 1. Little interest or pleasure in doing things: not at all 2. Feeling down, depressed, or hopeless: not at all 3. Trouble falling or staying asleep, or sleeping too much: several days 4. Feeling tired or having little energy: several days 5. Poor appetite or overeating: not at all 6. Feeling bad about yourself - or that you are a failure or have let yourself or your family down: not at all 7. Trouble concentrating on things, such as reading the newspaper or watching television: not at all 8. Moving or speaking so slowly that other people could have noticed. Or the opposite - being so fidgety or restless that you have been moving around a lot more than usual: several days 9. Thoughts that you would be better off or of hurting yourself in some way: not at all Total score: 3 Depression Screening Interpretation: Negative Depression Screening Done: Yes 38380 - PHQ-9 Billing: Yes Source: Developed by Drs. Jerman El, Ruby Galaviz, Carlos Rocha and colleagues, with an educational hina from [employer]. Thrive Questionnaire Date Thrive assessed: 01/28/24 I am a: Patient What is your living situation today?: I have a steady place to live Within the past 12 months, did the food you bought not last and you didn't have the money to get more?: Never true Within the past 12 months, did you worry whether your food would run out before you got money to buy more?: Never true Do you have trouble paying for medicines?: No Do you have trouble getting transportation to medical appointments?: No Do you have trouble paying your heating and electricity bill?: No Do you have trouble taking care of your child, family member or friend?: No Do you have trouble with day-to-day activities such as bathing, preparing meals, shopping, managing finances, etc.?: No Are you currently unemployed and looking for a job?: No Are you interested in more education?: No Please select the resources that you would like help with: Housing/Long-Term Currently or been in a relationship where the following occur: No concerns reported THRIVE Score: 0 AUDIT C Alcohol Use Questionnaire (AUDIT-C) 1. How often do you have a drink containing alcohol?: 2-3 times a week 2. How many drinks containing alcohol do you have on a typical day when you are drinking?: 1 or 2 3. How often do you have six or more drinks on one occasion?: Never Total Score: 3 Score Reviewed/Action Taken: Yes DESTINEY-7 AMB Questionnaire DESTINEY-7 Date DESTINEY - 7 assessed: 01/28/24 Feeling nervous, anxious, or on edge: 0 = Not at all Not being able to stop or control worryin = Not at all Worrying too much about different things: 1 = Several days Trouble relaxin = Not at all Being so restless that it is hard to sit still: 1 = Several days Becoming easily annoyed or irritable: 1 = Several days Feeling afraid as if something awful might happen: 0 = Not at all Total DESTINEY-7 score (0-4 normal; 5-9 mild; 10-14 moderate; 15-21 severe): 3 Source: Developed by Drs. Jerman El, Ruby Galaviz, Carlos Rocha and colleagues, with an educational hina from [employer]. DESTINEY-7 Assessment Billing DESTINEY-7 Assessment Tool: DESTINEY-7 Assessment 08877 Review of Systems Const Denies chills and Denies fever(s) ENT Denies epistaxis and Denies nasal discharge Card Denies chest pain Resp Denies chest congestion, Denies cough and Denies hemoptysis GI Denies diarrhea and Denies nausea Skin/Breast Denies rash Neuro Reports no additional complaints Psych Reports no additional complaints Endo Reports no additional complaints Physical exam (Primary Care) Vital Signs: Last Vital Signs Pulse 87 01/28/24 10:58 BP 128/80 01/28/24 10:58 Pulse Ox 97 01/28/24 10:58 Oxygen Delivery Method Room Air 01/28/24 10:58 BMI result Body Mass Index 22.7 Tobacco/Smoking Status: Tobacco use Status Tobacco use date assessed 01/28/24 01/28/24 11:01 Patient Tobacco Use Status Current everyday Tobacco 01/28/24 11:01 e-Cigarette/Vaping Use Never Used 01/28/24 11:01 PHQ-9: PHQ-9 Score PHQ-9: Total score 3 01/28/24 11:18 Depression Screening Interpretation: Negative Thrive Assessment: Date of Thrive Assessment Date Thrive assessed 01/28/24 01/28/24 11:01 Currently or been in a relationship where the following occur: No concerns reported Const General: cooperative, comfortable and no acute distress Orientation/consciousness: patient oriented x3 HENMT Head: Yes normocephalic Eyes General: appearance normal, both eyes and all related structures Neck Neck: Yes supple Resp Effort & Inspection: normal respiratory effort, no cough and no stridor Cardio Rhythm: regular rhythm Heart sounds: S1 normal heart sound present and S2 normal heart sound present Skin General skin exam: turgor normal Neuro General: patient oriented x3, tone normal and moves all extremities Extrem Right lower extremity: no edema Left lower extremity: no edema Assessment and Plan Assessment & Plan (1) Chronic GERD: Code(s): K21.9 - Gastro-esophageal reflux disease without esophagitis (2) Psoriatic arthritis: Code(s): L40.50 - Arthropathic psoriasis, unspecified (3) Tobacco abuse: Code(s): Z72.0 - Tobacco use (4) Hypertension, essential: Code(s): I10 - Essential (primary) hypertension (5) Asthma, moderate persistent: Code(s): J45.40 - Moderate persistent asthma, uncomplicated Qualifiers: Asthma complication type: uncomplicated Qualified Code(s): J45.40 - Moderate persistent asthma, uncomplicated (6) Difficulty sleeping: Code(s): G47.9 - Sleep disorder, unspecified (7) Polyarthralgia: Code(s): M25.50 - Pain in unspecified joint (8) Cervicalgia: Code(s): M54.2 - Cervicalgia Plan 53-year-old male came in today for four-month follow-up appointment Labs were done September of this year reviewed New set of lab order placed to be done before next visit in 4 months His daughter is , I see that he is due for Tdap Vaccine was administered today Patient had colonoscopy 3 years ago at [facility] Asthma: Stable with Spiriva and Advair, , however continued to smoke 1/2 pack per day. We discussed smoking again , and set up a new goal of 5 cigarettes by the time he sees me again in 4 months if he can not stop altogether GERD is stable with omeprazole 20 mg Patient have psoriatic arthritis and is taking adalimumanb through rheumatology and naproxen as needed His psoriasis is worse since he started this medication, he was doing better with Humira, he will discuss it further with his Rheumatology Patient is complaining of lot of aches and pains in his body Including neck pain I am starting him on gabapentin 100 mg capsule he may double the dose after 2 or 3 days if there is no reaction He is taking mirtazapine as a sleep aid Once he starts taking 200 mg of gabapentin I would recommend to taper off the mirtazapine Hypertension: His blood pressure is stable Patient is on mirtazapine 15 mg to sleep at night We will set up 2 week telephone visit to follow up on gabapentin and mirtazapine Regular follow-up in 4 weeks Orders: Orders Complete Blood Count Auto Diff Today G47.9 - Sleep disorder, unspecified, I10 - Essential (primary) hypertension, J45.40 - Moderate persistent asthma, uncomplicated, K21.9 - Gastro-esophageal reflux disease without esophagitis, L40.50 - Arthropathic psoriasis, unspecified, M25.50 - Pain in unspecified joint, M54.2 - Cervicalgia, Z72.0 - Tobacco use Lipid Panel Today G47.9 - Sleep disorder, unspecified, I10 - Essential (primary) hypertension, J45.40 - Moderate persistent asthma, uncomplicated, K21.9 - Gastro-esophageal reflux disease without esophagitis, L40.50 - Arthropathic psoriasis, unspecified, M25.50 - Pain in unspecified joint, M54.2 - Cervicalgia, Z72.0 - Tobacco use TDaP Immunization Today Z23 - Encounter for immunization Comprehensive [place]. Panel Fast Today G47.9 - Sleep disorder, unspecified, I10 - Essential (primary) hypertension, J45.40 - Moderate persistent asthma, uncomplicated, K21.9 - Gastro-esophageal reflux disease without esophagitis, L40.50 - Arthropathic psoriasis, unspecified, M25.50 - Pain in unspecified joint, M54.2 - Cervicalgia, Z72.0 - Tobacco use Medications: New Boostrix Tdap (diphth,pertus(acell),tetanus) 0.5 mL IM ONCE 0.5 mL 0RF NS Z23 - Encounter for immunization gabapentin 100 mg PO BEDTIME 30 caps 0RF Coding Level of Care Code Est Pt Level 4 (57634) Diagnoses Chronic GERD K21.9 Psoriatic arthritis L40.50 Tobacco abuse Z72.0 Hypertension, essential I10 Moderate persistent asthma without complication J45.40 Asthma complication type: uncomplicated Difficulty sleeping G47.9 Polyarthralgia M25.50 Cervicalgia M54.2 Additional Codes DESTINEY-7 Assessment Billing - DESTINEY-7 Assessment Tool: DESTINEY-7 Assessment [id number] ([id number])
[2024-01-28 10:58] VITALS: BP 128/80; PULSE 87; O2SAT 97; BMI 22.7
== END 2024-01-28 11:36 | disposition home or self-care (01) ==
PROVIDERS: PCP Internal Medicine; Visit Provider Internal Medicine
DX: K21.9 Gastro-esophageal reflux disease without esophagitis (principal); L40.50 Arthropathic psoriasis, unspecified; Z72.0 Tobacco use; I10 Essential (primary) hypertension; J45.40 Moderate persistent asthma, uncomplicated; G47.9 Sleep disorder, unspecified; M25.50 Pain in unspecified joint; M54.2 Cervicalgia
CPT/HCPCS: 99214

== ENCOUNTER 2024-02-13 08:07 | Outpatient (AMB) | payer OTHER, SELFPAY ==
--- NOTE | 2024-02-13 08:22 | A.OFFPC_ITS ---
Intake Visit Reasons: [facility] F/U~[phone] Allergies No Known Allergies Allergy (Verified 02/13/24 08:23) Medication List - Last Reconciled 02/13/24 by Chandu Ji MD adalimumab inject one - 40 mg/0.4 mL pen every 2 weeks subcut gabapentin 100 mg PO BEDTIME losartan-hydrochlorothiazide 50-12.5 mg 1 tab PO DAILY mirtazapine 15 mg PO BEDTIME omeprazole 20 mg PO DAILY 90 days tiotropium bromide 2.5 mcg/actuation (Spiriva Respimat) 2 puffs inhalation QAM Ventolin HFA 90 mcg/actuation (albuterol sulfate) 1 puff inhalation QID PRN NS [wrist splint wear nightly and as much as possible throughout the day] Tobacco use date assessed: 02/13/24 Dental Screening Dental Screen Date: 02/13/24 Did you have a dental visit in the last 12 months?: Yes Did you have a dental problem in the last 6 months where you did not have access to dental care?: No Was dental information given to patient?: Patient has dentist HPI [facility] F/U~[phone] HPI Details Patient is 53 YO Male I started him on Gabapentin last visit for his joint pains he is now 200 mg caps he has found relief from pain, how ever still having symptoms he has stopped taking NSAIDS i am increasing the dose to 300 mg caps he also continue to take mirtazpine as sleep aid PFSH Medical History Diverticulitis Family History Daughter Crohn's colitis Social History Housing: House Alcohol intake: current Alcohol intake frequency: a few times a month Patient Tobacco Use Status: Current everyday Tobacco user Cigarette Packs Per Day: 1 e-Cigarette/Vaping Use: Never Used service: No Current occupational status: employed 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 1. Little interest or pleasure in doing things: not at all 2. Feeling down, depressed, or hopeless: not at all 3. Trouble falling or staying asleep, or sleeping too much: several days 4. Feeling tired or having little energy: several days 5. Poor appetite or overeating: not at all 6. Feeling bad about yourself - or that you are a failure or have let yourself or your family down: not at all 7. Trouble concentrating on things, such as reading the newspaper or watching television: not at all 8. Moving or speaking so slowly that other people could have noticed. Or the opposite - being so fidgety or restless that you have been moving around a lot more than usual: several days 9. Thoughts that you would be better off or of hurting yourself in some way: not at all Total score: 3 Depression Screening Interpretation: Negative Depression Screening Done: Yes 74141 - PHQ-9 Billing: Yes Source: Developed by Drs. Jerman El, Ruby Galaviz, Carlos Rocha and colleagues, with an educational hina from [employer]. Thrive Questionnaire Date Thrive assessed: 02/13/24 I am a: Patient What is your living situation today?: I have a steady place to live Within the past 12 months, did the food you bought not last and you didn't have the money to get more?: Never true Within the past 12 months, did you worry whether your food would run out before you got money to buy more?: Never true Do you have trouble paying for medicines?: No Do you have trouble getting transportation to medical appointments?: No Do you have trouble paying your heating and electricity bill?: No Do you have trouble taking care of your child, family member or friend?: No Do you have trouble with day-to-day activities such as bathing, preparing meals, shopping, managing finances, etc.?: No Are you currently unemployed and looking for a job?: No Are you interested in more education?: No Please select the resources that you would like help with: Housing/Residential Currently or been in a relationship where the following occur: No concerns repor corey THRIVE Score: 0 AUDIT C Alcohol Use Questionnaire (AUDIT-C) 1. How often do you have a drink containing alcohol?: 2-3 times a week 2. How many drinks containing alcohol do you have on a typical day when you are drinking?: 1 or 2 3. How often do you have six or more drinks on one occasion?: Never Total Score: 3 Score Reviewed/Action Taken: Yes DESTINEY-7 AMB Questionnaire DESTINEY-7 Date DESTINEY - 7 assessed: 02/13/24 Feeling nervous, anxious, or on edge: 0 = Not at all Not being able to stop or control worryin = Not at all Worrying too much about different things: 1 = Several days Trouble relaxin = Not at all Being so restless that it is hard to sit still: 1 = Several days Becoming easily annoyed or irritable: 1 = Several days Feeling afraid as if something awful might happen: 0 = Not at all Total DESTINEY-7 score (0-4 normal; 5-9 mild; 10-14 moderate; 15-21 severe): 3 Source: Developed by Drs. Jerman El, Ruby Galaviz, Calros Rocha and colleagues, with an educational hina from [employer]. DESTINEY-7 Assessment Billing DESTINEY-7 Assessment Tool: DESTINEY-7 Assessment 82821 Review of Systems Const Denies chills and Denies fever(s) ENT Denies epistaxis and Denies nasal discharge Card Denies chest pain Resp Denies chest congestion, Denies cough and Denies hemoptysis GI Denies diarrhea and Denies nausea Skin/Breast Denies rash Neuro Reports no additional complaints Psych Reports no additional complaints Endo Reports no additional complaints Physical exam (Primary Care) Tobacco/Smoking Status: Tobacco use Status Tobacco use date assessed 02/13/24 02/13/24 08:23 Patient Tobacco Use Status Current everyday Tobacco 02/13/24 08:23 e-Cigarette/Vaping Use Never Used 02/13/24 08:23 PHQ-9: PHQ-9 Score PHQ-9: Total score 3 02/13/24 08:58 Depression Screening Interpretation: Negative Thrive Assessment: Date of Thrive Assessment Date Thrive assessed 02/13/24 02/13/24 08:23 Currently or been in a relationship where the following occur: No concerns reported Telehealth Telehealth Telehealth Platform: [facility] Location of provider rendering services: practice address Location of patient: address on file Patient Identification confirmed using: Name, : Yes Telehealth method: video Patient verbally consented to treatment: Yes Patient verbally consented to billing insurance company: Yes Patient informed of any privacy concerns related to visit: Yes Minutes spent on Phone/Video with Pt.: 13 Assessment and Plan Assessment & Plan (1) Psoriatic arthritis: Code(s): L40.50 - Arthropathic psoriasis, unspecified (2) Polyarthralgia: Code(s): M25.50 - Pain in unspecified joint (3) Cervicalgia: Code(s): M54.2 - Cervicalgia (4) Difficulty sleeping: Code(s): G47.9 - Sleep disorder, unspecified Plan Patient is 53 YO Male I started him on Gabapentin last visit for his joint pains he is now 200 mg caps he has found relief from pain, how ever still having symptoms he has stopped taking NSAIDS i am increasing the dose to 300 mg caps he also continue to take mirtazpine as sleep aid Medications: Changed From gabapentin 100 mg PO BEDTIME 30 caps 0RF To gabapentin 300 mg PO BEDTIME 90 days 90 caps 0RF Coding Level of Care Code Tele Est Pt Level 3 (62744) Diagnoses Psoriatic arthritis L40.50 Polyarthralgia M25.50 Cervicalgia M54.2 Difficulty sleeping G47.9 Additional Codes DESTINEY-7 Assessment Billing - DESTINEY-7 Assessment Tool: DESTINEY-7 Assessment 01325 ([id number])
== END 2024-02-13 09:44 | disposition home or self-care (01) ==
PROVIDERS: PCP Internal Medicine; Visit Provider Internal Medicine
DX: L40.50 Arthropathic psoriasis, unspecified (principal); M25.50 Pain in unspecified joint; M54.2 Cervicalgia; G47.9 Sleep disorder, unspecified
CPT/HCPCS: 99213

== ENCOUNTER 2024-02-26 16:54 | Emergency (ER) | payer OTHER, SELFPAY ==
--- NOTE | ~2024-02-26 | XR_ITS ---
EXAMINATION: XR SOFT TISSUE NECK CLINICAL INDICATION: Question esophageal foreign body COMPARISON: None available. TECHNIQUE: 2 views of the soft tissue neck were obtained. FINDINGS: Soft tissue films of the neck demonstrate a normal larynx, pharynx and upper trachea. No soft tissue swelling or opaque foreign body is demonstrated. XR/XR soft tissue neck IMPRESSION: No esophageal foreign body visualized
--- NOTE | 2024-02-26 16:59 | ED_ITS ---
HPI - General Adult General Chief complaint: General Medical Stated complaint: something stuck in throat Time Seen by Provider: 02/26/24 18:55 Source: patient, RN notes reviewed and old records reviewed Mode of arrival: ambulatory Limitations: no limitations History of Present Illness ED Provider: Aleah STERN narrative: 53-year-old male presents for evaluation of a foreign body sensation in his throat. Patient reports about 2-2-1/2 weeks ago he noticed a foreign body sensation in his upper throat ?right behind my Jamie's apple. ? He felt as if he had got in a pills stuck. He has been able to eat and drink with a little bit of discomfort but otherwise unimpeded. 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 Johnson. Patient states his symptoms appear to be getting worse as he is having increasing discomfort with swallowing Denies any other complaints or concerns at this time. Denies any fevers, chills, neck swelling Related Data Home Medications ?Medication ?Instructions ?Recorded ?Confirmed adalimumab 40 mg/0.4 mL See Rx Instructions subcut .COMPLEX 05/09/23 02/13/24 subcutaneous pen kit Previous Rx's ?Medication ?Instructions ?Recorded tiotropium bromide 2.5 2 puff inhalation QAM #4 grams 04/19/23 mcg/actuation mist for inhalation (Spiriva Respimat) wrist splint #2 ea 06/26/23 Ventolin HFA 90 mcg/actuation 1 puff inhalation QID PRN 08/12/23 aerosol inhaler (albuterol sulfate) shortness of breath or wheezing #18 grams omeprazole 20 mg capsule,delayed 20 mg PO DAILY 90 days #90 caps 11/25/23 release mirtazapine 15 mg tablet 15 mg PO BEDTIME #90 tabs 02/07/24 gabapentin 300 mg capsule 300 mg PO BEDTIME 90 days #90 caps 02/13/24 losartan 50 mg-hydrochlorothiazide 1 tab PO DAILY #90 tabs 02/21/24 12.5 mg tablet Allergies Allergy/AdvReac Type Severity Reaction Status Date / Time morphine Allergy Nausea Verified 02/26/24 17:08 Review of Systems Constitutional: Constitutional: Denies body ache(s), Denies chills and Denies fever(s) Eyes: Eyes: Denies blurry vision ENT: Denies throat swelling and Denies tongue swelling Comments: Foreign body sensation and throat Cardiovascular: Cardiovascular: Denies chest pain and Denies dyspnea Respiratory: Respiratory: Denies cough and Denies dyspnea Gastrointestinal: Gastrointestinal: Denies abdominal pain, Denies nausea and Denies vomiting Musculoskeletal: Musculoskeletal: Denies back pain Integumentary/Breasts: Skin/Breast: Denies rash Psychiatric: Psychiatric: Denies anxiety Allergic/Immunologic: Allergic/Immunologic: Denies throat swelling and Denies tongue swelling PMFSH Past Medical History Medical History Diverticulitis Family History Family History Daughter Crohn's colitis Social History Social History Housing: House Alcohol intake: current Alcohol intake frequency: a few times a month Patient Tobacco Use Status: Current everyday Tobacco user Cigarette Packs Per Day: 1 e-Cigarette/Vaping Use: Never Used Advance Directives: No Advance Directives Information Provided: No service: No Current occupational status: employed 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 Cognitive needs: No Hearing needs: No Vision needs: No Physical Exam ED Vital Signs: Vital Signs - 24 hr 02/26/24 17:05 02/26/24 19:43 Temperature 98.4 F 98.0 F Pulse Rate 85 78 Respiratory Rate 16 18 Blood Pressure 143/93 H 139/92 H Pulse Oximetry 98 97 Oxygen Delivery Method Room Air Room Air BMI result Body Mass Index 23.8 Const General: healthy appearing, comfortable, no acute distress, alert and awake Nutritional Appearance: well nourished Orientation/consciousness: patient oriented x3 HENMT Head: Yes normocephalic and Yes atraumatic Throat: Yes posterior oropharynx normal Eyes Eyelids: Yes eyelids normal Conjunctivae: conjunctivae normal Sclerae: sclerae normal Corneas: corneas normal Pupils: Equal, round and reactive pupils present EOM: EOMs intact bilaterally Neck Other: No anterior neck swelling Neck: Yes full ROM and Yes no lymphadenopathy Resp Effort & Inspection: normal respiratory effort, able to speak in complete sentences and not labored Skin General skin exam: elasticity normal Neuro General: patient oriented x3 Cranial nerves: Yes Equal, round and reactive pupils present and Yes Bilaterally intact EOM present Cognition (Neuro): normal cognition Extrem Other: Moving all extremities well without any obvious deformities Course Course Course Narrative: This is an RME done by KURTIS Encarnacion: Additional HPI, ROS, PE not included below will be deferred to primary provider. 53 year old male with pmh of esophageal narrowing with ballon dialation, COPD, diverticulitis, HTN, tobacco abuse, psoriatic arthritis, and chronic GERD presenting with complaints of feeling like something is stuck in his throat for past 2 and 1/2 weeks. He states he does take a lot of mediations and is concerned one might be stuck. Pt has been able to keep liquids and solids down. Denies trauma to the area, fevers, abdominal pain, increased gas/burping, changes to urination/bm. Appearance: Alert.? Oriented X3.? No acute cardiopulmonary distress distress.? Head: Normocephalic, atraumatic, no step-offs or deformities ENT: Pharynx normal, no swelling, or obvious foreign body. CVS: Pulses normal.? Respiratory: No respiratory distress.? Skin: ? Normal skin color. Extremities: 5/5 strength to bilateral upper and lower extremities Neuro: Oriented X 3.? No motor deficit.? No sensory deficit. Medical Decision Making Medical Decision Making MDM Narrative: 53-year-old female with past medical history significant for EGJ dysfunction presents for evaluation of foreign body sensation in his throat worse with swallowing. He is able to tolerate p.o., liquids and solids. He had a lateral neck x-ray ordered in triage which does not show any obvious radiopaque pathology. I did discuss with the patient's GI doctor, Dr. Johnson who happens to be on-call for our ER and he is comfortable with the patient being discharged home as the patient is able to tolerate p.o. and will follow up in the office. The patient was advised to increase his omeprazole from 20 mg daily to 20 mg b.i.d. for the next 2 weeks Differential Diagnosis Differential Diagnoses: The differential diagnosis associated with the presentation includes Esophagitis Esophageal foreign body Rosaura-Johnson tear Pharyngitis Independent Interpretation I performed an independent interpretation of an: Plain X-Ray Interpretation: Agree with Radiology interpretation Radiology Impression Discussion of test interpretation with radiology: I have reviewed the radiologist's reading. Radiologist Impression: XR/XR soft tissue neck IMPRESSION: No esophageal foreign body visualized Discharge Plan Discharge Clinical Impression: Esophagitis Patient Disposition: Home, Self-Care Instructions: Esophagitis (ED) Additional Instructions: Increase your omeprazole to 20 mg twice daily for the next 2 weeks. Call the office of Dr. Johnson tomorrow morning to schedule follow-up Return to the ER for worsening symptoms, especially if you are unable to swallow/eat or drink anything Prescriptions: No Action Spiriva Respimat 2.5 mcg/actuation mist 2 puff inhalation QAM Qty: 4 2RF (DME) wrist splint See Rx Instructions .Route .MEDSUPPLY Qty: 2 0RF Rx Instructions: wear nightly and as much as possible throughout the day albuterol sulfate [Ventolin HFA] 90 mcg/actuation HFA aerosol inhaler 1 puff inhalation QID PRN (Reason: shortness of breath or wheezing) Qty: 18 1RF omeprazole 20 mg capsule,delayed release(DR/EC) 20 mg PO DAILY 90 Days Qty: 90 2RF mirtazapine 15 mg tablet 15 mg PO BEDTIME Qty: 90 0RF losartan-hydrochlorothiazide 50-12.5 mg tablet 1 tab PO DAILY Qty: 90 0RF Boostrix Tdap 2.5-8-5 Lf-mcg-Lf/0.5mL syringe 0.5 ml IM ONCE Qty: 0.5 0RF gabapentin 300 mg capsule 300 mg PO BEDTIME 90 Days Qty: 90 0RF adalimumab 40 mg/0.4 mL pen injector kit See Rx Instructions subcut .COMPLEX Rx Instructions: inject one - 40 mg/0.4 mL pen every 2 weeks subcut Referrals: Jerman Johnson MD [Physician] - (Esophagitis vs foreign body. Able to tolerate PO) Interventions: ED Discharge Assessment Last Done: 02/26/24 19:43 Discharge Date/Time: 02/26/24 19:46 Print Language: Micronesian
[2024-02-26 17:05] VITALS: BP 143/93; PULSE 85; RESP 16; TEMP 36.9; O2SAT 98; BMI 23.8
[2024-02-26 19:43] VITALS: BP 139/92; PULSE 78; RESP 18; TEMP 36.7; O2SAT 97
== END 2024-02-26 19:46 | disposition home or self-care (01) ==
PROVIDERS: Emergency Provider Internal Medicine; PCP Internal Medicine
DX: K20.90 Esophagitis, unspecified without bleeding (principal); R09.A2 Foreign body sensation, throat
CPT/HCPCS: 70360; 99282; 99283

== ENCOUNTER 2024-04-13 10:56 | Day surgery (SDC) | payer OTHER, SELFPAY ==
[2024-04-09 15:13] VITALS: BMI 22.0
--- NOTE | 2024-04-10 10:14 | P.CONAN_ITS ---
HPI - Anesthesia Eval Consult details Narrative: 53yo M for Upper Endoscopy with Balloon Dilitation PMFSH Active Problems Active Problems: All Active Problems Cervicalgia (Acute) COPD mixed type (Acute) Carpal tunnel syndrome, bilateral (Acute) Polyarthralgia (Acute) Low back pain, unspecified (Acute) Chronic pain (Acute) Screening for viral disease (Acute) Difficulty sleeping (Acute) Asthma, moderate persistent (Acute) Hypertension, essential (Acute) Nocturia (Acute) Wheezing (Acute) Tobacco abuse (Acute) Psoriatic arthritis (Acute) Encounter for general adult medical examination with abnormal findings (Acute) Chronic GERD (Acute) Diverticulitis (Acute) Past Medical History Medical History (Updated 04/09/24 @ 15:16 by Juliet Samuels RN) Polyarthralgia COPD (chronic obstructive pulmonary disease) Asthma Psoriasis HTN (hypertension) GERD (gastroesophageal reflux disease) Diverticulitis Family History Family History Daughter Crohn's colitis Surgical History Surgical History (Updated 04/09/24 @ 15:15 by Juliet Samuels RN) H/O colonoscopy History of esophagogastroduodenoscopy (EGD) Social History Social History (Updated 04/09/24 @ 15:15 by Juliet Samuels RN) Household Members: Spouse Housing: House Alcohol intake: current Alcohol intake frequency: a few times a month Patient Tobacco Use Status: Former Tobacco user Tobacco use type: Cigarette Cigarette Packs Per Day: 1 e-Cigarette/Vaping Use: Never Used service: No Current occupational status: employed 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
[2024-04-13 11:06] VITALS: BP 133/82; PULSE 68; RESP 16; TEMP 36.3; O2SAT 98; BMI 23.3
[2024-04-13] MEDS: Lactated Ringers 1,000 ML 100 ML IVCONT (11:38)
[2024-04-13 13:50] VITALS: BP 101/61; PULSE 69; RESP 18; TEMP 36.6; O2SAT 99
--- NOTE | 2024-04-13 13:57 | P.BOP_ITS ---
Brief Operative Note Date of Service: 04/13/24 Pre-op diagnosis: Dysphagia, GERD Post-op diagnosis: other (GERD, Hiatal hernia, History of EoE) Procedure: EGD with Balloon Dilation from 18 to 19mm, and with biopsies Surgeon: Jerman Johnson MD Anesthesia: MAC Was an Metal Sprayer Protective Coating used for this Procedure?: No Estimated blood loss (mL): 2.0 Pathology: other (A. Esophagus 20 to 25 cm) Condition: stable Disposition: PACU
[2024-04-13 14:05] VITALS: BP 102/68; PULSE 78; RESP 15; O2SAT 97
--- NOTE | 2024-04-13 22:44 | OP_ITS ---
DATE OF SERVICE: 04/13/2024 SURGEON: Jerman Johnson MD INDICATIONS: The patient presents for evaluation of dysphagia, globus, and history of eosinophilic esophagitis. Full consent has been obtained from him for this, including risks of bleeding and perforation. PREOPERATIVE DIAGNOSIS: POSTOPERATIVE DIAGNOSIS: PROCEDURE PERFORMED: Esophagogastroduodenoscopy with balloon dilation and biopsies. ESTIMATED BLOOD LOSS: COMPLICATIONS: ANESTHESIA: Monitored anesthesia care. ASSISTANTS: SPECIMENS: PREOPERATIVE DIAGNOSES: Dysphagia, gastroesophageal reflux, history of eosinophilic esophagitis. POSTOPERATIVE DIAGNOSES: Dysphagia, gastroesophageal reflux, history of eosinophilic esophagitis, small hiatal hernia, status post balloon dilation. DESCRIPTION OF PROCEDURE: The patient was placed in the left lateral decubitus position. The Olympus video gastroscope was passed in the posterior oropharynx and upper esophagus under direct vision. The scope was passed slowly into the distal esophagus. The gastroesophageal junction appeared at 38 cm. There did not appear to be any definitive stricture nor ring at this level, and the scope easily entered the stomach. There was a small hiatal hernia. The scope was advanced to the pylorus, and the duodenum was cannulated to the descending portion. The duodenum including the bulb appeared normal without mass or ulceration. The scope was withdrawn back to the stomach. The gastric antrum and body appeared normal with good peristalsis. The scope was retroflexed visualizing the proximal stomach carefully, which appeared normal, without any sign of mass or ulceration. The scope was withdrawn into the esophagus. The gastroesophageal junction at 38 cm appeared basically normal without any sign of esophagitis, Orozco esophagus, esophageal stricture, nor esophageal ring. The area seemed to open normally with insufflation of air. I did use an esophageal Jed-Cook dilating balloon from 18 mm to 19 mm at the recommended pressure for between 30 and 60 seconds each. Post dilation, there did actually appear to be some heme noted and mild disruption of the EG junction. Again, it remained easy to pass the scope into and out of the stomach. The scope was withdrawn through the remainder of the esophagus. The esophageal mucosa appeared completely normal including the proximal esophagus without any sign of proximal esophageal rings or webs. I did obtain biopsies between 20 to 25 cm. Visualization of the oropharynx appeared normal including the vocal cords. The scope was withdrawn from the patient. He tolerated the procedure well and was returned to the recovery area in stable condition. IMPRESSION: 1. Small hiatal hernia. 2. History of eosinophilic esophagitis. 3. Status post balloon dilation of gastroesophageal junction. PLAN: The results of the biopsies will be checked. He has been advised to continue his omeprazole long-term for relief of his chronic reflux, and he does report that has been working well. He was advised not to use any aspirin and NSAIDs for a week. He was advised to call me if the swallowing symptoms remain a problem or if it again worsens in the future. He was reminded to follow up with an ENT physician in regard to the sense of globus for a thorough exam in their office given his smoking history. I do not think the globus is related to reflux at this point, and he may have some component of some postnasal drip or other issue in relation to the chronic smoking. He was advised to be sure to undergo a followup colonoscopy in 2027 as well. If things remain well, he will see me on a p.r.n. basis, but I did advise him and his that he should call me if problems with the swallowing persist, in which case we might want to have him undergo a barium swallow and/or esophageal motility testing. If the proximal esophageal biopsies do show eosinophilic esophagitis and the swallowing symptoms persist, then we may want to treat that with a course of budesonide to see if that would give him any symptomatic relief as well. MD PHILL Killian/LUIS / [phone]
== END 2024-04-13 15:10 | disposition home or self-care (01) ==
PROVIDERS: PCP Internal Medicine; Visit Provider Internal Medicine
PROC: (CPT 43249; principal; 2024-04-13 12:10)
DX: R13.10 Dysphagia, unspecified (principal); Z87.19 Personal history of other diseases of the digestive system; K21.9 Gastro-esophageal reflux disease without esophagitis; K44.9 Diaphragmatic hernia without obstruction or gangrene; Z79.899 Other long term (current) drug therapy; Z87.891 Personal history of nicotine dependence
CPT/HCPCS: 43249; 43239; 88305; C1726; J2704

== ENCOUNTER 2024-05-22 08:07 | Outpatient (AMB) | payer OTHER, SELFPAY ==
--- NOTE | 2024-05-22 08:14 | MHC.PC.OV ---
Vital Signs 05/22/24 08:15 Height 5 ft 9 in Weight 165 lb 8 oz BMI 24.4 BP 112/68 Blood Pressure Location Rt brachial Pulse 76 Pulse Source Pulse Oximeter Pulse Oximetry (%) 98 Oxygen Delivery Method Room Air Intake Visit Reasons: 4M F/U Allergies morphine Allergy (Verified 05/22/24 08:15) Nausea Medication List - Last Reconciled 05/22/24 by Chandu Ji MD adalimumab inject one - 40 mg/0.4 mL pen every 2 weeks subcut gabapentin 300 mg PO BEDTIME 90 days losartan-hydrochlorothiazide 50-12.5 mg 1 tab PO DAILY mirtazapine 15 mg PO BEDTIME nicotine 1 patch transdermal Q24H omeprazole 20 mg PO DAILY 90 days tiotropium bromide 2.5 mcg/actuation (Spiriva Respimat) 2 puffs inhalation QAM Ventolin HFA 90 mcg/actuation (albuterol sulfate) 1 puff inhalation QID PRN NS [wrist splint wear nightly and as much as possible throughout the day] Tobacco use date assessed: 05/22/24 Dental Screening Dental Screen Date: 05/22/24 Did you have a dental visit in the last 12 months?: Yes Did you have a dental problem in the last 6 months where you did not have access to dental care?: No Was dental information given to patient?: Patient has dentist HPI 4M F/U HPI Details 53-year-old male came in today for four-month follow-up appointment Due for labs patient forgot to do them, reminded Patient had colonoscopy 3 years ago at [facility] Asthma: Stable with Spiriva and Advair, , He has finally stopped smoking in February Complaining of feeling sensation of foreign body in his throat and is requesting ENT referral Patient says that initially it was happening off and on but it is more consistent now Patient has smoked over 30 years 1 pack per day, he also need a lung cancer screening He does have history of GERD and is taking omeprazole 20 mg He also goes for balloon dilatation of esophagus every few months by Dr. Johnson last dilatation was in February Patient have psoriatic arthritis and is taking adalimumanb through rheumatology and naproxen as needed I have started him on gabapentin 300 mg at night to help him with the pain control, patient says that it is helping He continued to take mirtazapine 15 mg at night Hypertension: His blood pressure is stable Has appointment for physical exam in September [facility] Medical History (Updated 05/22/24 @ 09:30 by Chandu Ji MD) Polyarthralgia COPD (chronic obstructive pulmonary disease) Asthma Psoriasis HTN (hypertension) GERD (gastroesophageal reflux disease) Diverticulitis Surgical History (Updated 04/09/24 @ 15:15 by Juliet Samuels RN) H/O colonoscopy History of esophagogastroduodenoscopy (EGD) Family History Daughter Crohn's colitis Social History (Updated 04/09/24 @ 15:15 by Juliet Samuels RN) Household Members: Spouse Housing: House Are you a primary direct care specialist to a significant other at home: No Do you presently have visiting nurse or other home services: No Alcohol intake: current Alcohol intake frequency: a few times a week Patient Tobacco Use Status: Former Tobacco user Tobacco use type: Cigarette Cigarette Packs Per Day: 1 e-Cigarette/Vaping Use: Never Used service: No Current occupational status: employed 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 1. Little interest or pleasure in doing things: not at all 2. Feeling down, depressed, or hopeless: not at all 3. Trouble falling or staying asleep, or sleeping too much: several days 4. Feeling tired or having little energy: several days 5. Poor appetite or overeating: not at all 6. Feeling bad about yourself - or that you are a failure or have let yourself or your family down: not at all 7. Trouble concentrating on things, such as reading the newspaper or watching television: not at all 8. Moving or speaking so slowly that other people could have noticed. Or the opposite - being so fidgety or restless that you have been moving around a lot more than usual: several days 9. Thoughts that you would be better off or of hurting yourself in some way: not at all Total score: 3 Depression Screening Interpretation: Negative Depression Screening Done: Yes 52018 - PHQ-9 Billing: Yes Source: Developed by Ruby Robb.W. Guillaume, Carlos Rocha and colleagues, with an educational hina from [employer]. Thrive Questionnaire Date Thrive assessed: 05/22/24 I am a: Patient What is your living situation today?: I have a steady place to live Within the past 12 months, did the food you bought not last and you didn't have the money to get more?: Never true Within the past 12 months, did you worry whether your food would run out before you got money to buy more?: Never true Do you have trouble paying for medicines?: No Do you have trouble getting transportation to medical appointments?: No Do you have trouble paying your heating and electricity bill?: No Do you have trouble taking care of your child, family member or friend?: No Do you have trouble with day-to-day activities such as bathing, preparing meals, shopping, managing finances, etc.?: No Are you currently unemployed and looking for a job?: No Are you interested in more education?: No Please select the resources that you would like help with: None Currently or been in a relationship where the following occur: No concerns reported THRIVE Score: 0 AUDIT C Alcohol Use Questionnaire (AUDIT-C) 1. How often do you have a drink containing alcohol?: 2-3 times a week 2. How many drinks containing alcohol do you have on a typical day when you are drinking?: 1 or 2 3. How often do you have six or more drinks on one occasion?: Never Total Score: 3 Score Reviewed/Action Taken: Yes DESTINEY-7 AMB Questionnaire DESTINEY-7 Date DESTINEY - 7 assessed: 02/13/24 Source: Developed by Drs. Jerman El, Ruby Galaviz, Carlos Rocha and colleagues, with an educational hina from [employer]. Review of Systems Const Denies chills and Denies fever(s) ENT Denies epistaxis and Denies nasal discharge Card Denies chest pain Resp Denies chest congestion, Denies cough and Denies hemoptysis GI Denies diarrhea and Denies nausea Skin/Breast Denies rash Neuro Reports no additional complaints Psych Reports no additional complaints Endo Reports no additional complaints Physical exam (Primary Care) Vital Signs: Last Vital Signs Pulse 76 05/22/24 08:15 BP 112/68 05/22/24 08:15 Pulse Ox 98 05/22/24 08:15 Oxygen Delivery Method Room Air 05/22/24 08:15 BMI result Body Mass Index 24.4 Tobacco/Smoking Status: Tobacco use Status Tobacco use date assessed 05/22/24 05/22/24 08:17 Patient Tobacco Use Status Former Tobacco user 05/22/24 08:17 Tobacco use type Cigarette 05/22/24 08:17 e-Cigarette/Vaping Use Never Used 05/22/24 08:17 PHQ-9: PHQ-9 Score PHQ-9: Total score 3 05/22/24 09:30 Depression Screening Interpretation: Negative Thrive Assessment: Date of Thrive Assessment Date Thrive assessed 05/22/24 05/22/24 08:17 Currently or been in a relationship where the following occur: No concerns reported Const General: cooperative, comfortable and no acute distress Orientation/consciousness: patient oriented x3 HENMT Head: Yes normocephalic Eyes General: appearance normal, both eyes and all related structures Neck Neck: Yes supple Resp Effort & Inspection: normal respiratory effort, no cough and no stridor Cardio Rhythm: regular rhythm Heart sounds: S1 normal heart sound present and S2 normal heart sound present Skin General skin exam: turgor normal Neuro General: patient oriented x3, tone normal and moves all extremities Extrem Right lower extremity: no edema Left lower extremity: no edema Coding Level of Care Code Est Pt Level 4 (14328) Diagnoses Sensation of foreign body in throat R09.A2 Hypertension, essential I10 Tobacco abuse Z72.0 COPD mixed type J44.9 Difficulty sleeping G47.9 Moderate persistent asthma without complication J45.40 Asthma complication type: uncomplicated Psoriatic arthritis L40.50 Chronic GERD K21.9 Additional Codes PHQ-9 - 35151 - PHQ-9 Billing: Yes ([id number]) Assessment & Plan Assessment & Plan (1) Sensation of foreign body in throat: Code(s): R09.A2 - Foreign body sensation, throat Category: Medical (2) Hypertension, essential: Code(s): I10 - Essential (primary) hypertension Category: Medical (3) Tobacco abuse: Code(s): Z72.0 - Tobacco use Category: Medical (4) COPD mixed type: Code(s): J44.9 - Chronic obstructive pulmonary disease, unspecified Category: Medical (5) Difficulty sleeping: Code(s): G47.9 - Sleep disorder, unspecified Category: Medical (6) Asthma, moderate persistent: Code(s): J45.40 - Moderate persistent asthma, uncomplicated Category: Medical Qualifiers: Asthma complication type: uncomplicated Qualified Code(s): J45.40 - Moderate persistent asthma, uncomplicated (7) Psoriatic arthritis: Code(s): L40.50 - Arthropathic psoriasis, unspecified Category: Medical (8) Chronic GERD: Code(s): K21.9 - Gastro-esophageal reflux disease without esophagitis Category: Medical Plan 53-year-old male came in today for four-month follow-up appointment Due for labs patient forgot to do them, reminded Patient had colonoscopy 3 years ago at [facility] Asthma: Stable with Spiriva and Advair, , He has finally stopped smoking in February Complaining of feeling sensation of foreign body in his throat and is requesting ENT referral Patient says that initially it was happening off and on but it is more consistent now Patient has smoked over 30 years 1 pack per day, he also need a lung cancer screening He does have history of GERD and is taking omeprazole 20 mg He also goes for balloon dilatation of esophagus every few months by Dr. Johnson last dilatation was in February Patient have psoriatic arthritis and is taking adalimumanb through rheumatology and naproxen as needed I have started him on gabapentin 300 mg at night to help him with the pain control, patient says that it is helping He continued to take mirtazapine 15 mg at night Hypertension: His blood pressure is stable Has appointment for physical exam in September Orders: Referrals Ear/Nose/Throat Referral R09.A2 - Foreign body sensation, throat Lung Cancer Screening Referral Z72.0 - Tobacco use
[2024-05-22 08:15] VITALS: BP 112/68; PULSE 76; O2SAT 98; BMI 24.4
== END 2024-05-22 09:06 | disposition home or self-care (01) ==
LOC: HO.HMCC 08:08
PROVIDERS: PCP Internal Medicine; Visit Provider Internal Medicine
DX: J44.9 Chronic obstructive pulmonary disease, unspecified (principal); L40.50 Arthropathic psoriasis, unspecified; R09.A2 Foreign body sensation, throat; I10 Essential (primary) hypertension; Z72.0 Tobacco use; G47.9 Sleep disorder, unspecified; J45.40 Moderate persistent asthma, uncomplicated; K21.9 Gastro-esophageal reflux disease without esophagitis

== ENCOUNTER → 2024-05-22 08:07 | Outpatient (BNVA) | payer OTHER, SELFPAY | PROVIDERS: PCP Internal Medicine; Visit Provider Internal Medicine | DX: R09.A2 Foreign body sensation, throat (principal); I10 Essential (primary) hypertension; J44.9 Chronic obstructive pulmonary disease, unspecified; G47.9 Sleep disorder, unspecified; J45.40 Moderate persistent asthma, uncomplicated; L40.50 Arthropathic psoriasis, unspecified; K21.9 Gastro-esophageal reflux disease without esophagitis; Z72.0 Tobacco use | CPT/HCPCS: 96127; 99212 ==

== ENCOUNTER 2024-05-23 08:13 | Outpatient (REF) | payer OTHER, SELFPAY ==
[2024-05-23 11:13] LABS: MANUAL DIFF FLAG NO
[2024-05-23 11:29] LABS: Basophils Absolute Auto 0.1 X10*3/uL (0.0-0.2); Basophils Percent Auto 1.1 % (0-2); Eosinophils Absolute Auto 0.4 X10*3/uL (0.0-0.4); Eosinophils Percent Auto 5.4 % (0-4); Hematocrit 42.4 % (42.0-52.0); Hemoglobin 14.8 g/dl (14.0-18.0); Imm Gran Abs Auto 0.02 X10*3/uL (0.00-0.03); Imm Gran Pct Auto 0.2 % (0.0-0.4); Lymphocytes Absolute Auto 2.5 X10*3/uL (1.2-4.9); Lymphocytes Percent Auto 30.6 % (20-40); Mean Corpuscular HGB Conc 34.9 g/dl (31.0-36.0); Mean Corpuscular Volume 91.8 fL (80.0-98.0); Mean Platelet Volume 10.7 fL (9.4-12.4); Monocytes Absolute Auto 0.7 X10*3/uL (0.1-1.2); Neutrophils Absolute Auto 4.4 x10*3/uL (2.0-8.3); Neutrophils Percent Auto 53.7 % (45-73); Platelet Count 264 X10*3/uL (160-400); Red Blood Count 4.62 X10*6/uL (4.60-5.80); Red Cell Distribution Width 11.9 % (11.0-16.0); White Blood Count 8.1 X10*3/uL (4.8-10.8)
[2024-05-23 11:35] LABS: Alanine Aminotransferase 19 U/L (0-40); Albumin Level 3.9 g/dL (3.5-5.0); Alkaline Phosphatase 74 U/L (39-117); Anion Gap 13 (12-20); Aspartate Amino Transferase 26 U/L (5-37); Bilirubin Total 0.8 mg/dL (0.0-1.0); Blood Urea Nitrogen 9 mg/dL (9-16); Calcium 9.3 mg/dL (8.4-10.2); Carbon Dioxide 26 mmol/L (22-29); Chloride 105 mmol/L (96-108); Cholesterol 178 mg/dL (<200); Estimated Glomerular Filt Rate > 60; Glucose Fasting 94 mg/dL (60-99); HDL Cholesterol 39 mg/dL (>40); LDL Cholesterol Calculated 119 mg/dL (<100); Potassium 3.8 mmol/L (3.3-5.1); Sodium 140 mmol/L (135-145); Total Protein 7.1 g/dL (6.5-8.0); Triglycerides 104 mg/dL (<150)
== END 2024-05-23 08:14 | disposition home or self-care (01) ==
LOC: HO.HMGCLDS 08:13
PROVIDERS: PCP Internal Medicine; Visit Provider Internal Medicine
DX: J45.40 Moderate persistent asthma, uncomplicated (principal); I10 Essential (primary) hypertension; Z72.0 Tobacco use; L40.50 Arthropathic psoriasis, unspecified; K21.9 Gastro-esophageal reflux disease without esophagitis; G47.9 Sleep disorder, unspecified; M25.50 Pain in unspecified joint; M54.2 Cervicalgia
CPT/HCPCS: 36415; 80053; 80061; 85025

== ENCOUNTER 2024-07-24 09:57 | Outpatient (AMB) | payer OTHER, SELFPAY ==
--- NOTE | 2024-07-24 07:45 | A.OFFVIS_ITS ---
Intake Visit Reasons: Former Smoker Allergies morphine Allergy (Verified 05/22/24 08:15) Nausea HPI HPI Former Smoker: Details: Initial visit for this 54yo former smoker with a 35PYH. Patient started smoking at age 17 for 36 years at 1ppd. He quit 02/2024. . Denies marijuana use. Social second hand smoke exposure. is former smoker. 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 . Denies known family history of lung cancer. Denies personal history of cancers. Denies chest CT in last year. . Denies recent travel outside the [place]. Denies recent respiratory illness or recent hospitalization for respiratory issues. Reports history testing positive for COVID. Admits receiving COVID Vaccine. . Denies fever, chills, new/worsening cough, hemoptysis, hoarseness or dysphagia. Denies significant chest pain, significant dyspnea or unintentional weight loss. Patient Lung Cancer Screening Questionnaire reviewed with patient by provider. . Shared Decision Making Completed. Patient meets criteria. Discussed in detail with patient, the risk vs benefit of LDCT screening. Patient consents to proceed with scan. Discussed smoking cessation. [facility] Medical History (Updated 07/24/24 @ 10:06 by Harleen Stratton PA-C) Polyarthralgia Psoriasis HTN (hypertension) COPD (chronic obstructive pulmonary disease) Asthma Personal history of nicotine dependence GERD (gastroesophageal reflux disease) Diverticulitis History of colon polyps Surgical History (Updated 07/24/24 @ 10:09 by Harleen Stratton PA-C) History of tonsillectomy History of colonoscopy History of esophagogastroduodenoscopy (EGD) Family History Daughter Crohn's colitis Social History (Updated 07/24/24 @ 10:06 by Harleen Stratton PA-C) Household Members: Spouse Housing: House Are you a primary daycare provider to a significant other at home: No Do you presently have visiting nurse or other home services: No Alcohol intake: current Alcohol intake frequency: a few times a week Patient Tobacco Use Status: Former Tobacco user Tobacco use type: Cigarette Years Smoked: (onset 17yo, 1ppd x 36yrs, 35pyh - quit 02/2024) e-Cigarette/Vaping Use: Never Used service: No Current occupational status: employed 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 - Patient meets criteria for LDCT for lung cancer screening purposes and is asymptomatic. - Smoking cessation counseling offered. Patients can always call [phone]. - Will arrange for a LDCT scan of the chest for screening purposes at [facility]. - Risks, benefits, and alternatives were discussed in detail and the patient agrees to proceed. - Risks discussed include but are not limited to: radiation exposure, anxiety during testing and while awaiting results, false negatives, false positives and possibility of additional intervention such as further imaging or surgical procedures for benign disease. - Benefits are obviously detection of lung cancer at an early stage which can lead to improved outcomes. - Discussed the importance of screening program compliance with adherence to yearly LDCT scan as scheduled - or sooner interval scans for personalized screening regimen. - Discussed follow up plan. Our office will send a letter discussing results and if needed set up phone call and office visit based on CT findings. - Patient educated on results categorization and the management decisions for suspicious findings potentially found on the screening LDCT scan. Any patient with a Lung RADS score of 3 or 4 will be reviewed by a multidisciplinary team at [facility] to form a plan of action in regards to scan findings. - If further work up is warranted for a suspicious lung finding this will be followed by the Lung Cancer Screening program in conjunction with the Thoracic Surgery Department at [facility]. - A copy of the office note and LDCT will be sent to the patient's PCP - as well as documentation on any associated further plans of care. - Incidental findings on LDCT are the PCP's responsibility. These findings are indicated with an S finding on the LDCT Assessment. A note discussing the findings will be sent to the PCP who is then responsible for further management. - All questions answered.? Coding Level of Care Code Lung Cancer Screening G0296 Diagnoses Personal history of nicotine dependence Z87.891
--- OUTSIDE RECORDS SUMMARY | 2024-07-24 10:08 | XMS_ITS | Continuity of Care Document ---
Author Organization [place] - [facility], [facility] Address [address] [place] [address] Assessment Encounter Date Assessment Date Assessment LastModified by Organization Details LastModified Time 06/16/2024 06/16/2024 The patient meet s criteria for tonsillectomy. The surgery will be done under general anesthesia with no cuts through the skin. After the surgery the patient should expect temporary bad breath, ear aches, still neck and the worst sore throat of their life. It will typically last up to 2 weeks. There is a 5% risk of bleeding during the healing process when the scab falls off. If this occurs, they are encouraged to call the office to discuss management. Occasionally it requires a trip to the emergency room and or operating room to control the bleeding. Additional risks of dehydration, hospital readmission, throat pain, voice change, swallowing dysfunction and velopharyngeal insufficiency are also possible. Pain control with alternating doses of Tylenol (acetaminophen) and Motrin (ibuprofen) [id number] every 3 hours are recommended. Use of narcotics and antibiotics are not recommended. Usually 1 week out of school or work is needed to recover, and then they may return with light activities for an additional week before resuming regular routine. They will contact our office to schedule at a mutually convenient time. All questions were answered. [email or web address] Not available 06/16/2024 15:25:44 Plan of Treatment Reminders Order Date Submit Date Provider Last Modified By Organization Details Last Modified Time Details Appointments None recorded. Lab None recorded. Referral None recorded. Procedures None recorded. Surgeries tonsillecto my (SURG) 2023 024 9 Not available 08:47:18 Imaging None recorded. Medication Orders None recorded. Patient TargetsNo targets recorded. Patient InstructionsNo instructions recorded. Reason for Referral None Reported. Problems Name Problem SNOMED Code Status Onset Date Resolution Date Notes Provider Name and Address Organization Details Recorded Time Tonsil asymmetry 567813644 Active 024 VICKI KIDD MD [address] [facility], [address], [place], [address], [facility] 15:23:26 Problem Notes None recorded. Procedures Surgical History Date Name Laterality Status Provider Name and Address Organization Details Recorded Time 06/22/20 24 Removal of tonsils completed VICKI KIDD MD [address] [place] [address],[place] [address], [place], [address], [facility] 06/22/2024 13:31:38 06/22/20 24 TONSILLECTOMY (SURG) completed Adiel Cai [facility] 06/29/2024 13:01:43 06/16/20 24 FOL_DP completed VICKI KIDD MD [address] [place] [address],[place] [address], [place], [address], [facility] 06/16/2024 09:02:14 Imaging Results None recorded. Procedure Notes None recorded. Medical Equipment None Reported. Allergies Allergen ID Allergen Name Allergen Category Reaction Reaction Severity Criticality Documentation Date Start Date Code Code System Note Provider Name and Address Organization Details Recorded Time 610896 morphine medicatio n nausea Not available Not available 06/16/2024 7052 RxNorm Courtney zimmerman [facility] 15:02:09 Medications Name Sig Start Date Stop Date Status Note LastModified by Organization Details LastModified Time nicotine 14 mg/24 hr daily transdermal patch active Not Available Not Available Not Available nicotine 21 mg/24 hr daily transdermal patch APPLY 1 PATCH TRANSDERM ALLY EVERY 24 HOURS AND CHANGE, ROTATE PATCH SITSE active Not Available Not Available No t Available gabapentin 300 mg capsule TAKE 1 CAPSULE BY MOUTH EVERYDAY AT BEDTIME active Not Available Not Available No t Available omeprazole 20 mg capsule,del ayed release TAKE 1 CAPSULE BY MOUTH EVERY DAY active Not Available Not Available No t Available mirtazapine 15 mg tablet 15 mg every day by oral route. active Not Available Not Available No t Available gabapentin 100 mg capsule TAKE 1 CAPSULE BY MOUTH EVERYDAY AT BEDTIME 06/16 completed Not Available Not Available Not Available losartan 50 mg-hydrochl orothiazide 12.5 mg tablet TAKE 1 TABLET BY MOUTH EVERY DAY active Not Available Not Available No t Available Spiriva Respimat 2.5 mcg/actuati on solution for inhalation INHALE 2 PUFFS BY MOUTH EVERY MORNING 06/16 completed Not Available Not Available Not Available omeprazole 20 mg delayed release,dis integrating tablet 20 mg every 24 hours by oral route. active Not Available Not Available No t Available Vitals Date Recorded Body height Body mass index (BMI) Body weight Provider Name and Address Organization Details Last Updated DateTime 06/16/2024 177.8 cm 23.7 kg/m2 37470.74 g Courtney Cornelius [place] - [facility] 06/16/2024 15:00:08 Social History None recorded. Functional Status None recorded. Mental Status None recorded. Family History Nothing Reported. Medical History Condition Response Allergies/Hayfever N Heart Problems N Anxiety N Tonsil Infections N Emphysema N Migraines N Thyroid Problems N Glaucoma N Depression N COPD N Developmental Delay N Nasal or Sinus Problems N Anemia N Immune System Disorder N Anesthesia Complications N Heart Attack ([place]) N Other Skin Condition Y Diabetes N Rhinitis N Bleeding Disorder N Food Allergy N Arthritis Y Hearing Loss N Hyperlipidemia N Cancer N Stroke N Dementia N Nasal polyps N Asthma Y Sleep Disorder N GERD/Reflux Y High Cholesterol N Liver Disease N Headaches N Fibromyalgia N Hypertension N Speech Delay N Kidney Disease N Past Encounters Encounter ID Performer Location Encounter Start Date Encounter Closed Date Diagnosis/Indication Diagnosis SNOMED-CT Code Diagnosis ICD10 Code Diagnosis Note [id number] VICKI KIDD MD [facility] [address] [address] 06/16/2024 14:50:20 06/16/2024 15:27:01 Tonsil asymmetry 183784321 J35.8 Patient has tonsil asymmetry with right side greater than left side. He is not aware when this began but it is very possible his symptoms of throat clearing and globus are related to the right tonsil mass. He declined biopsy in the office and therefore I recommend surgery under general anesthesia to remove his tonsils. His fiberoptic laryngosco py was otherwise benign. At this time he has no palpable lymphadeno katheryn Health Concerns Section Related Observation LastModified by Organization Detai ls LastModified Time None Recorded Concern Status LastModified by Organization Details LastModified Time None Recorded Payers Encounter Date Sequence Insurance Name Policy Number Policy Santos Covered Member ID Santos Member ID Guarantor Name 06/16/2024 1 [facility] (O) [id number] Mateo Carrera [id number] Mateo Carrera Notes Date Note Type Note Provider Name and Address Organization Details Recorded Time 06/16/2024 text/html globusfrequent throat clearing, worse when supineonset February 2024+GERD on omeprazole, doubled his dose.esophageal dilation with Dr Johnson was benigntobacco - stopped 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
--- OUTSIDE RECORDS SUMMARY | 2024-07-24 10:08 | XMS_ITS ---
Author Organization [facility] Address [address] [place] [address] Care Team Providers Care Newcomer Hostess Name Role Phone Garrison CEDEÑO, [employer] Primary Care Provider eJrman Vasques [phone] REASON FOR VISIT esophageal ring,globus sensation,dysphagia, eosinophilic esophagitis PROBLEMS Problem Type ICD Code Onset Dates Problem Status W/U Status Risk SNOMED Code Notes Problem Gastro-esophagea l reflux disease without esophagitis (K21.9) Active confirmed Gastro-esophage al reflux disease without esophagitis (880468411) Problem Dysphagia (R13.10) Active confirmed Dysphagia (39717326) Problem Globus sensation (F45.8) Active confirmed Globus sensation (563153614) Encounters Encounter Location Date Provider Diagnosis [facility] [address] [place] [id number] 04/13/2024 Jerman Johnson Gastro-esophageal reflux disease without esophagitis K21.9 and Dysphagia R13.10 ASSESSMENTS Encounter Date Diagnosis Assessment Notes Treatment Notes Treatment Clinical Notes 04/13/2024 Gastro-esophageal reflux disease without esophagitis (ICD-10 - K21.9) 04/13/2024 Dysphagia (ICD-10 - R13.10) PLAN OF TREATMENT No Information
--- OUTSIDE RECORDS SUMMARY | 2024-07-24 10:08 | XMS_ITS | Data Portability ---
Author Organization [place] - [facility], Allergy Address [address] [place] [address] Assessment Encounter Date Assessment Date Assessment LastModified [...] doses of Tylenol (acetaminophen) and Motrin (ibuprofen) [id number]-pii-[id number] every 3 hours are recommended. Use of narcotics and antibiotics are not recommended. Usually 1 week out of school or work is needed to recover, and then they may return with light activities for an additional week before resuming regular routine. They will contact our office to schedule at a mutually convenient time. All questions were answered. [email or web address] Not available 06/16/2024 15:25:44 07/06/2024 07/06/2024 Path was benign benign. His physical exam shows mild eschar in the tonsil fossa bilaterally. He continues to feel normal changes from postoperative healing with discomfort and otalgia gradually improving. As for his symptom of globus, I would anticipate it to improve over the next several weeks. If it persists, he will reach out through the portal for an update [email or web address] Not available 07/06/2024 16:07:09 Plan of Treatment Reminders Order Date Submit Date Provider Last Modified By Organization Details Last Modified Time Details Appointments None recorded. Lab None recorded. Referral None recorded. Procedures None recorded. Surgeries tonsillecto my (SURG) 2023 024 [email or web address] [id number] Not available 08:47:18 Imaging None recorded. Medication Orders None recorded. Patient TargetsNo targets recorded. Patient InstructionsNo instructions recorded. Reason for Referral None Reported. Results Created Date Observation Date Name Description Value Unit Range Abnormal Flag Note LastModifiedBy Organization Detail LastModifiedTime Result Notes None recorded. Problems Name Problem SNOMED Code Status Onset Date Resolution Date Notes Provider Name and Address Organization Details Recorded Time Tonsil asymmetry 665048526 Active 024 VICKI KIDD MD [address] [place] [address], [phone], [facility] 15:23:26 Problem Notes None recorded. Procedures Surgical History Date Name Laterality Status Provider Name and Address Organization Details Recorded Time 06/22/20 24 Removal of tonsils completed VICKI KIDD MD [address] [place] [address], [phone], [facility] 06/22/2024 13:31:38 06/22/20 24 TONSILLECTOMY (SURG) completed Adiel Cai [facility] 06/29/2024 13:01:43 06/16/20 24 FOL_DP completed VICKI KIDD MD [address] [place] [address],[address], [address], [facility] 06/16/2024 09:02:14 Imaging Results None recorded. Procedure Notes None recorded. Medical Equipment None Reported. Allergies Allergen ID Allergen Name Allergen Category Reaction Reaction Severity Criticality Documentation Date Start Date Code Code System Note Provider Name and Address Organization Details Recorded Time 380237 morphine medicatio n nausea Not available Not available 06/16/2024 7052 RxNorm Courtney zimmerman [facility] 4 15:02:09 Medications Name Sig Start Date Stop [...] Updated DateTime 06/16/2024 177.8 cm 23.7 kg/m2 50212.74 g Courtney Cornelius [facility] 06/16/2024 15:00:08 Date Recorded Body height Body mass index (BMI) Body weight Provider Name and Address Organization Details Last Updated DateTime 07/06/2024 177.8 cm 23.7 kg/m2 90689.74 g Courtney Cornelius [facility] 07/06/2024 15:41:57 Social History None recorded. Functional Status None recorded. Mental Status None recorded. Family History Nothing Reported. Medical History Condition Response Allergies/Hayfever N Heart Problems N Anxiety N Tonsil Infections N Emphysema N Migraines N Thyroid Problems N Glaucoma N Depression N COPD N Developmental Delay N Nasal or Sinus Problems N Anemia N Immune System Disorder N Anesthesia Complications N Heart Attack ([place]) N Other Skin Condition Y Diabetes N [...] SNOMED-CT Code Diagnosis ICD10 Code Diagnosis Note [id number] VICKI KIDD MD [facility] [address] [address] 06/16/2024 14:50:20 06/16/2024 15:27:01 Tonsil asymmetry 098151794 J35.8 Patient has tonsil asymmetry with right [...] time he has no palpable lymphadeno katheryn [id number] VICKI KIDD MD [facility] [address] [address] 07/06/2024 15:32:27 07/06/2024 16:29:53 Tonsil asymmetry 529181997 J35.8 Health Concerns Section Related Observation LastModified by Organization Detai ls LastModified Time None Recorded Concern Status LastModified by Organization Details LastModified Time None Recorded Advance Directives Directive None Recorded Payers Encounter Date Sequence Insurance Name Policy Number Policy Santos Covered Member ID Santos Member ID Guarantor Name 06/16/2024 1 [facility] PLAN (O) [id number] Mateo Carrera [id number] Mateo Carrera 07/06/2024 1 [facility] PUBLIC PLANS [facility] [id number] Mateo Deniseon [id number] 01 Mateo Carrera Notes Date Note Type Note Provider Name and Address Organization Details Recorded Time 06/16/2024 text/html globusfrequent t hroat clearing, worse when supineonset February 2024+GERD on omeprazole, doubled his dose.esophageal dilation with Dr Johnson was benigntobacco - stopped 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
--- OUTSIDE RECORDS SUMMARY | 2024-07-24 10:08 | XMS_ITS | Continuity of Care Document ---
Author Organization [place] - [facility] [place], [facility] Address [address] [place] [address] Assessment Encounter Date Assessment Date Assessment LastModified by Organization Details LastModified Time 07/06/2024 07/06/2024 Path was benign benign. His [...] Details Last Modified Time Details Appointments None record ed. Lab None record ed. Referral None record ed. Procedures None record ed. Surgeries None record ed. Imaging None record ed. Medication Orders None record ed. Patient TargetsNo targets recorded. Patient InstructionsNo instructions recorded. Reason for Referral None Reported. Problems Name Problem SNOMED Code Status Onset Date Resolution Date Notes Provider Name and Address Organization Details Recorded Time Tonsil asymmetry 702805721 Active 024 VICKI KIDD MD [address] [place] [address], [phone], [place] - [facility] 15:23:26 Problem Notes None recorded. Procedures Surgical History Date Name Laterality Status Provider Name and Address Organization Details Recorded Time 06/22/20 24 Removal of tonsils completed VICKI KIDD MD [address] [place] [address], [phone], [place] - [facility] 06/22/2024 13:31:38 06/22/20 24 TONSILLECTOMY (SURG) completed Adiel Cai [facility] 06/29/2024 13:01:43 06/16/20 FOL_DP completed VICKI KIDD MD [address] [place] [address], [phone], [facility] 06/16/2024 09:02:14 Imaging Results None recorded. Procedure Notes None recorded. Medical Equipment None Reported. Allergies Allergen ID Allergen Name Allergen Category Reaction Reaction Severity Criticality Documentation Date Start Date Code Code System Note Provider Name and Address Organization Details Recorded Time 120325 morphine medicatio n nausea Not available Not available 06/16/2024 7052 RxNorm Courtney zimmerman [place] [facility] 15:02:09 Medications Name Sig Start Date [...] Updated DateTime 07/06/2024 177.8 cm 23.7 kg/m2 40299.74 g Courtney Cornelius [facility] 07/06/2024 15:41:57 Social History None recorded. [...] Disorder N Anesthesia Complications N Heart Attack ([place]) N Other Skin Condition Y Diabetes N Rhinitis N Bleeding Disorder N Food Allergy N Arthritis Y Hearing Loss N Hyperlipidemia N Cancer N Stroke N Dementia N Nasal polyps N Asthma Y High Cholesterol N Sleep Disorder N GERD/Reflux Y Liver Disease N Headaches N Fibromyalgia N Hypertension N Speech Delay N Kidney Disease N Past Encounters Encounter ID Performer Location Encounter Start Date Encounter Closed Date Diagnosis/Indication Diagnosis SNOMED-CT Code Diagnosis ICD10 Code Diagnosis Note [id number] VICKI KIDD MD [facility] [address] [address] 06/16/2024 14:50:20 06/16/2024 15:27:01 Tonsil asymmetry 671725133 J35.8 Patient has tonsil asymmetry with right [...] time he has no palpable lymphadeno katheryn [id number] VICKI KIDD MD [facility] [address] [address] 07/06/2024 15:32:27 07/06/2024 16:29:53 Tonsil asymmetry 923504363 J35.8 Health Concerns Section Related Observation LastModified by Organization Detai ls LastModified Time None Recorded Concern Status LastModified by Organization Details LastModified Time None Recorded Payers Encounter Date Sequence Insurance Name Policy Number Policy Santos Covered Member ID Santos Member ID Guarantor Name 07/06/2024 1 [facility] PUBLIC PLANS [facility] TYPE I (HMO) [id number] Mateo Carrera [id number] 01 Mateo Carrera Notes Date Note Type Note Provider Name and Address Organization Details Recorded Time 07/06/2024 text/html globusfrequent t hroat clearing, worse when supineonset February 2024+GERD on omeprazole, doubled his dose.esophageal dilation with Dr Johnson was benigntobacco - stopped soriatic arthritis 06/22/2024 EVELYN, Pantera Tonsillectomypath at [facility] - 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
--- OUTSIDE RECORDS SUMMARY | 2024-07-24 10:09 | XMS_ITS | Patient Health Record ---
Author Organization [facility] Address [address] [place] [address] Care Team Providers Care Cycle Liaison Name Role Phone Garrison CEDEÑO, [facility] Primary Care Provider Jerman Vasques [phone] ALLERGIES No Known Allergies RESULTS Component Value Reference Range Notes Pathology (Not yet reviewed by provider) Interpretation: Performing Lab:[facility], [address] [place] [id number] Notes/Report: REASON FOR REFERRAL No Information MEDICATIONS Medication SIG (Take, Route, Frequency, Duration) Notes Start Date End Date Status Nicotine 21 MG/24HR APPLY 1 PATCH TRANSD ERMALLY EVERY 24 HOURS Transdermal for 28 Active Losartan Potassium-HCTZ 50-12.5 MG TAKE 1 TABLET BY MOUTH EVERY DAY Oral for 90 Active Omeprazole 20 MG 1 capsule Orally Onc e a day for 30 Active Tiotropium [place]-Olodaterol 2.5-2.5 MCG/ACT 2 puffs Inhalation Once a day Active Adalimumab 40 MG/0.8ML as directed Subcutaneous Active Albuterol Sulfate HFA 108 (90 Base) MCG/ACT 1 puff as needed Inhalation every 4 hrs Active Aleve 220 MG 1 tablet with food o r milk as needed Orally every 12 hrs Active Mirtazapine 15 MG Oral for 90 Active Gabapentin 300 MG TAKE 1 CAPSULE BY MO UTH AT BEDTIME Oral for 90 Active SOCIAL HISTORY Tobacco Use: Social History Observation Description Date Details (start date - stop date) Former Smoker NA - NA Sex Assigned At : Social History Observation Description Sex Assigned At Unknown Tobacco Use/Smoking Question Answer Notes Patient is a former smoker How long has it been since you last smoked? < 1 month PROBLEMS Problem Type ICD Code Onset Dates Problem Status W/U Status Risk SNOMED Code Notes Problem Diverticulitis of large intestine without perforation or abscess without bleeding (K57.32) Active confirmed 6144912 Problem Gastro-esophageal reflux disease without esophagitis (K21.9) Active confirmed Gastro-esophag eal reflux disease without esophagitis (788579441) Problem Eosinophilic esophagitis (K20.0) Active confirmed 439289569 Problem Dysphagia (R13.10) Active confirmed Dys phagia (20570435) Problem Abnormal CT scan, colon (R93.3) Active confirmed Computed tomography result abnormal (563922238) Problem Esophageal ring (K22.2) Active confirmed 052599749 Problem Esophageal dysphagia (R13.10) Active confirmed 40161494 Problem Globus sensation (F45.8) Active confirmed Globus sensation (839682115) Problem Globus sensation (R09.89) Active confirmed Globus sensation (329330025) VITAL SIGNS Blood pressure diastolic 00 mm Hg 03/17/2024 Height 70 in 03/17/2024 Blood pressure systolic 00 mm Hg 03/17/2024 Weight 153 lbs 03/17/2024 BMI 21.95 kg/m2 03/17/2024 Encounters Encounter Location Date Provider Diagnosis [facility] [address] [place], [place] [id number] 04/13/2024 Jerman Johnson Gastro-esophageal reflux disease without esophagitis K21.9 and Dysphagia R13.10 [facility] [address] [place] [address] 03/17/2024 Jerman Johnson Esophageal ring K22. 2 ; Esophageal dysphagia R13.10 ; Eosinophilic esophagitis K20.0 and Globus sensation R09.89 ASSESSMENTS Encounter Date Diagnosis Assessment Notes Treatment Notes Treatment Clinical Notes 04/13/2024 Gastro-esophageal reflux disease without esophagitis (ICD-10 - K21.9) 04/13/2024 Dysphagia (ICD-10 - R13.10) 03/17/2024 Esophageal ring (ICD-10 - K22.2) 03/17/2024 Esophageal dysphagia (ICD-10 - R13.10) 03/17/2024 Eosinophilic esophagitis (ICD-10 - K20.0) 03/17/2024 Globus sensation (ICD-10 - R09.89) Make an appt. to see Dr. Guerrero from ENT for an office exam for the lump in the throat PLAN OF TREATMENT Pending Test Test Name Order Date Pathology 04/13/2024 Future Test Test Name Order Date UPPER GI ENDOSCOPY BALLOOON DILATION OF ESOPH 06/23/2014 UPPER GI ENDOSCOPY BALLOOON DILATION OF ESOPH 01/14/2018 COLONOSCOPY 01/14/2018 UPPER GI ENDOSCOPY BALLOOON DILATION OF ESOPH 03/17/2024 Insurance Providers Payer Name Payer Address Payer Phone Subscriber Number Group Number Insured Name Patient Relationship to Insured Coverage Start Date Coverage End Date [facility] [address] [place] [phone] [id number] AMEENA XIE Self - patient is the insured MEDICAL (GENERAL) HISTORY Medical History History ICD Code EGD with balloon dilatation 01-25-2011--this revealed evidence of some minimal distal esophageal friability and edema, but no evidence of any esophageal stricture nor ring--the gastroesophageal junction was dilated with a 16 mm and 18 mm balloon--the proximal esophagus appeared normal, although biopsies from that area did show findings consistent with eosinophilic esophagitis--the eosinophilic esophagitis has never been specifically treated GERD--asymptomatic on omeprazole Denies HI,DM,CVA,Lung disease,renal dise ase Diverticulitis -09/2017--treated at [facility] with antibiotics Psoriasis Eosinophilic esophagitis as above #1 Hypertension Colonoscopy in January of 2018 was negative except for some diverticulosis and a hyperplastic polyp Upper endoscopy in January 2018 revealed a distal esophageal ring which was dilated up to a 20mm balloon with good effect Surgical History Surgery Date(Month/Year)
--- OUTSIDE RECORDS SUMMARY | 2024-07-24 10:09 | XMS_ITS ---
Author Organization [facility] Address [address] [place] [address] Care Team Providers Care Resawyer Name Role Phone Garrison CEDE[facility], [facility] Primary Care Provider Jerman Vasques [phone] ALLERGIES No Known Allergies REASON FOR VISIT esophagitis MEDICATIONS Medication SIG (Take, Route, Frequency, Duration) Notes Start Date End Date Status Mirtazapine 15 MG Oral for 90 Active Gabapentin 300 MG TAKE 1 CAPSULE BY MO [facility] AT BEDTIME Oral for 90 Active Nicotine 21 MG/24HR APPLY 1 PATCH TRANSD ERMALLY EVERY 24 HOURS Transdermal for 28 Active Losartan Potassium-HCTZ 50-12.5 MG TAKE 1 TABLET BY MOUTH EVERY DAY Oral for 90 Active Omeprazole 20 MG 1 capsule Orally Onc e a day for 30 Active Tiotropium [place]-Olodaterol 2.5-2.5 MCG/ACT 2 puffs Inhalation Once a day Active Adalimumab 40 MG/0.8ML as directed Subcutaneous Active Albuterol Sulfate HFA 108 (90 Base) MCG/ACT 1 puff as needed Inhalation every 4 hrs Active Aleve 220 MG 1 tablet with food o r milk as needed Orally every 12 hrs Active SOCIAL HISTORY Tobacco Use: Social History [...] W/U Status Risk SNOMED Code Notes Problem Globus sensation (R09.89) Active confirmed Globus sensation (139327336) VITAL SIGNS BMI 21.95 kg/m2 03/17/2024 Blood pressure systolic 00 mm Hg 03/17/20 24 Blood pressure diastolic 00 mm Hg 024 Height 70 in 03/17/2024 Weight 153 lbs 03/17/2024 Encounters Encounter Location Date Provider Diagnosis [facility] [address] [place] [address] 03/17/2024 Jerman Johnson Esophageal ring K22. 2 ; Esophageal dysphagia R13.10 ; Eosinophilic esophagitis K20.0 and Globus sensation R09.89 ASSESSMENTS Encounter Date Diagnosis Assessment Notes Treatment Notes Treatment Clinical Notes 03/17/2024 Esophageal ring (ICD-10 - K22.2) 03/17/2024 Esophageal dysphagia (ICD-10 - R13.10) 03/17/2024 Eosinophilic esophagitis (ICD-10 - K20.0) 03/17/2024 Globus sensation (ICD-10 - R09.89) Make an appt. to see Dr. Guerrero from ENT for an office exam for the lump in the throat PLAN OF TREATMENT Treatment Notes Assessment Notes Globus sensation Make an appt. to see Dr. Guerrero from ENT for an office exam for the lump in the throat Future Test Test Name Order Date UPPER GI ENDOSCOPY BALLOOON DILATION OF ESOPH 03/17/2024 Next Appt Details Follow Up: prn, Reason: Progress Notes * Examination Category Sub-Category Detail Notes General Examination GENERAL APPEARANCE: pleasant , well nourished, well developed, in no acute distress HEAD: EYES: sclera non-icteric EARS: NOSE: THROAT: NECK/THYROID: no cervical lymphade nopathy, neck supple HEART: S1, S2 normal CHEST: LUNGS: clear to auscultatio n bilaterally ABDOMEN: normal bowel sounds, no guarding or rigidity, no guarding or rigidity, no masses palpable, soft, nontender, nondistended NEUROLOGIC: alert and oriented SKIN: nonjaundiced, no spi michaela angiomata EXTREMITIES: no edema PERIPHERAL PULSES: BACK: BREASTS: MUSCULOSKELETAL: MALE GENITOURINARY: LYMPH NODES: RECTAL EXAM: FEMALE GENITOURINARY: ORAL CAVITY: mucosa moist
== END 2024-07-24 10:16 | disposition home or self-care (01) ==
PROVIDERS: PCP Internal Medicine; Visit Provider Physician Assistant Medical
DX: Z87.891 Personal history of nicotine dependence (principal)
CPT/HCPCS: G0296

== ENCOUNTER 2024-07-24 10:17 | Outpatient (REF) | payer OTHER, SELFPAY ==
--- NOTE | ~2024-07-24 | CT_ITS ---
CLINICAL HISTORY: Z87.891 - Personal history of nicotine dependence CT lung cancer screening (LDCT) Comparison: None Technique: Axial CT images of the chest using low-dose technique. Referring provider counseled the patient on shared decision-making for LDCT screening. Additional counseling was provided on smoking cessation. Effective radiation dose total: DLP 46 mGycm, CTDIvol 1.2 mGy. Findings: Lung: There is centrilobular emphysema. There are calcified granulomas. Tiny 2 mm pulmonary nodules. Coronary artery calcifications: None Limited upper abdomen: Unremarkable Other: None Impression: LungRADS 2 - Benign Appearance: Continue annual screening with low dose Chest CT in 12 months. ##L2# Category 1: Normal; continue annual screening Category 2: Benign appearance or behavior, continue annual screening Category 3: Probably benign, [address] recommended Category 4A: Suspicious, [address] recommended; may consider PET/CT Category 4B: Suspicious, Additional diagnostics and/or tissue sampling recommended Category 4X: Suspicious, Additional diagnostics and/or tissue sampling recommended Category 0: Recalls (incomplete screen due to Incomplete coverage, Noise, Respiratory motion, Expiration, Obscured by acute abnormality) This document has been electronically signed by: Paradise Flanagan MD on 07/27/2024 14:39:26
== END 2024-07-24 10:18 | disposition home or self-care (01) ==
LOC: HO.CT 10:17
PROVIDERS: PCP Internal Medicine; Visit Provider Physician Assistant Medical
DX: Z12.2 Encounter for screening for malignant neoplasm of respiratory organs (principal); Z87.891 Personal history of nicotine dependence
CPT/HCPCS: 71271; G0296

== ENCOUNTER → 2024-07-24 10:19 | Outpatient (BNV) | payer OTHER, SELFPAY | PROVIDERS: PCP Internal Medicine; Visit Provider Nuclear Medicine | DX: Z87.891 Personal history of nicotine dependence (principal) | CPT/HCPCS: 71271 ==

== ENCOUNTER 2024-10-07 08:22 | Outpatient (AMB) | payer OTHER, SELFPAY ==
--- NOTE | 2024-10-07 08:23 | MHC.PC.OV ---
Vital Signs 10/07/24 08:24 Height 5 ft 9 in Weight 169 lb 6 oz BMI 25.0 BP 124/78 Blood Pressure Location Lt brachial Position Sitting Respiration 18 Pulse 81 Pulse Source Pulse Oximeter Pulse Oximetry (%) 98 Oxygen Delivery Method Room Air Intake Visit Reasons: Annual PE Allergies morphine Allergy (Verified 05/22/24 08:15) Nausea Medication List - Last Reconciled 10/07/24 by Chandu Ji MD adalimumab inject one - 40 mg/0.4 mL pen every 2 weeks subcut gabapentin 300 mg PO BEDTIME 90 days losartan-hydrochlorothiazide 50-12.5 mg 1 tab PO DAILY mirtazapine 15 mg PO BEDTIME nicotine 1 patch transdermal Q24H omeprazole 20 mg PO DAILY 90 days tiotropium bromide 2.5 mcg/actuation (Spiriva Respimat) 2 puffs inhalation QAM Ventolin HFA 90 mcg/actuation (albuterol sulfate) 1 puff inhalation QID PRN NS [wrist splint wear nightly and as much as possible throughout the day] Tobacco use date assessed: 10/07/24 Dental Screening Dental Screen Date: 10/07/24 Did you have a dental visit in the last 12 months?: Yes Did you have a dental problem in the last 6 months where you did not have access to dental care?: No Was dental information given to patient?: Patient has dentist HPI Annual PE HPI Details 54-year-old male came in today for physical exam Patient has not done labs still in spite of me reminding him last visit Patient had colonoscopy 2020 at [facility] Asthma: Stable with Spiriva and Advair, , He has finally stopped smoking in February 2024 Patient has smoked over 30 years 1 pack per day, had lung cancer screening He does have history of GERD and is taking omeprazole 20 mg He also goes for balloon dilatation of esophagus every few months by Dr. Johnson last dilatation was in February 2024 Patient have psoriatic arthritis and is taking adalimumanb through rheumatology and naproxen as needed I have started him on gabapentin 300 mg at night to help him with the pain control, patient says that it is helping - The pain affects multiple joints including knees, back, and shoulders, with stiffness primarily in the morning and evening. . - Past rheumatology consults were unsuccessful in further diagnosis of joint-related symptoms such as numbness. - Patient acknowledges pain persists despite trial of multiple treatment regimens for symptom control. 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 Diagnostic results - Labs: CBC is good, electrolytes are normal, kidney function is stable, liver enzymes within normal limits, and cholesterol is acceptable. May of last year Patient Instructions - Continue current medications as prescribed. - Follow up with rheumatology for further evaluation on Psoriatic Arthritis-related pain. - Confirm next colonoscopy date with Dr. Johnson. - Practice smoking cessation and continue using nicotine patches. - Monitor pain levels and any new symptoms, reporting significant changes during the next visit. Review of Systems - General: No fever no chills - Neurological: No headaches no dizziness - Ear nose throat: No sore throat no hearing difficulty no ear pain - Cardiovascular: No syncope, no chest pain, no palpitations - Gastrointestinal: No nausea vomiting or diarrhea - Endocrine: No polyuria polydipsia no heat intolerance - Genitourinary: No dysuria - Skin: No new complaints Physical Exam General: Cooperative, healthy appearing, comfortable, no acute distress Orientation: Patient oriented x3 Head and neck: Normal to inspection Ears: Within normal limit visually Nose: Normal external nose present Face and sinus: Normal facial exam Eyes: Appearance normal, extraocular movement intact pupils reactive Neck: Normal visual inspection and supple Respiratory: Normal respiratory effort and able to speak in complete sentences. Clear to auscultation, no stridor Cardiovascular: S1 and S2 GI: Normal to inspection. Soft to palpation and nontender Skin: Turgor normal, no acute findings Neuro: Patient oriented x3, motor sensory intact, balance intact, tandem pass Extremities: Normal to inspection, but patient reports joint pain in knees, back, and shoulders. [facility] Medical History Polyarthralgia Psoriasis HTN (hypertension) COPD (chronic obstructive pulmonary disease) Asthma Personal history of nicotine dependence GERD (gastroesophageal reflux disease) Diverticulitis History of colon polyps Surgical History History of tonsillectomy History of colonoscopy History of esophagogastroduodenoscopy (EGD) Family History Daughter Crohn's colitis Social History Household Members: Spouse Housing: House Are you a primary pet caretaker to a significant other at home: No Do you presently have visiting nurse or other home services: No Alcohol intake: current Alcohol intake frequency: a few times a week Patient Tobacco Use Status: Former Tobacco user Tobacco use type: Cigarette Years Smoked: (onset 17yo, 1ppd x 36yrs, 35pyh - quit 02/2024) e-Cigarette/Vaping Use: Never Used service: No Current occupational status: employed 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 1. Little interest or pleasure in doing things: not at all 2. Feeling down, depressed, or hopeless: not at all 3. Trouble falling or staying asleep, or sleeping too much: several days 4. Feeling tired or having little energy: several days 5. Poor appetite or overeating: not at all 6. Feeling bad about yourself - or that you are a failure or have let yourself or your family down: not at all 7. Trouble concentrating on things, such as reading the newspaper or watching television: not at all 8. Moving or speaking so slowly that other people could have noticed. Or the opposite - being so fidgety or restless that you have been moving around a lot more than usual: not at all 9. Thoughts that you would be better off or of hurting yourself in some way: not at all Total score: 2 Depression Screening Interpretation: Negative Depression Screening Done: Yes 15557 - PHQ-9 Billing: Yes Source: Developed by Drs. Jerman El, Rbuy Galaviz, Carlos Rocha and colleagues, with an educational hina from [employer]. Thrive Questionnaire Date Thrive assessed: 10/07/24 I am a: Patient What is your living situation today?: I have a steady place to live Within the past 12 months, did the food you bought not last and you didn't have the money to get more?: Never true Within the past 12 months, did you worry whether your food would run out before you got money to buy more?: Never true Do you have trouble paying for medicines?: No Do you have trouble getting transportation to medical appointments?: No Do you have trouble paying your heating and electricity bill?: No Do you have trouble taking care of your child, family member or friend?: No Do you have trouble with day-to-day activities such as bathing, preparing meals, shopping, managing finances, etc.?: No Are you currently unemployed and looking for a job?: No Are you interested in more education?: No Please select the resources that you would like help with: None Currently or been in a relationship where the following occur: No concerns reported THRIVE Score: 0 AUDIT C Alcohol Use Questionnaire (AUDIT-C) 1. How often do you have a drink containing alcohol?: 2-3 times a week 2. How many drinks containing alcohol do you have on a typical day when you are drinking?: 1 or 2 3. How often do you have six or more drinks on one occasion?: Never Total Score: 3 Score Reviewed/Action Taken: Yes DESTINEY-7 AMB Questionnaire DESTINEY-7 Date DESTINEY - 7 assessed: 10/07/24 Feeling nervous, anxious, or on edge: 0 = Not at all Not being able to stop or control worryin = Not at all Worrying too much about different things: 0 = Not at all Trouble relaxin = Not at all Being so restless that it is hard to sit still: 1 = Several days Becoming easily annoyed or irritable: 1 = Several days Feeling afraid as if something awful might happen: 0 = Not at all Total DESTINEY-7 score (0-4 normal; 5-9 mild; 10-14 moderate; 15-21 severe): 2 Source: Developed by Drs. Jerman El, Ruby Galaviz, Carlos Rocha and colleagues, with an educational hina from [employer]. Physical exam (Primary Care) Vital Signs: Last Vital Signs Pulse 81 10/07/24 08:24 Resp 18 10/07/24 08:24 BP 124/78 03/26/25 08:24 Pulse Ox 98 10/07/24 08:24 Oxygen Delivery Method Room Air 10/07/24 08:24 BMI result Body Mass Index 25.0 Tobacco/Smoking Status: Tobacco use Status Tobacco use date assessed 10/07/24 10/07/24 08:37 Patient Tobacco Use Status Former Tobacco user 10/07/24 08:26 Tobacco use type Cigarette 10/07/24 08:26 e-Cigarette/Vaping Use Never Used 10/07/24 08:26 PHQ-9: PHQ-9 Score PHQ-9: Total score 2 10/07/24 08:46 Depression Screening Interpretation: Negative Thrive Assessment: Date of Thrive Assessment Date Thrive assessed 10/07/24 10/07/24 08:37 Currently or been in a relationship where the following occur: No concerns reported Coding Level of Care Code Est Pt Level 3 (85451) Est Pt Prev Care 40-64y(89263) Diagnoses Encounter for general adult medical examination with abnormal findings Z00.01 Hypertension, essential I10 Moderate persistent asthma without complication J45.40 Asthma complication type: uncomplicated Difficulty sleeping G47.9 Chronic pain syndrome G89.4 Chronic pain type: chronic pain syndrome Polyarthralgia M25.50 COPD mixed type J44.9 Psoriatic arthritis L40.50 Chronic GERD K21.9 Additional Codes PHQ-9 - 34368 - PHQ-9 Billing: Yes ([id number]) Assessment & Plan Assessment & Plan (1) Encounter for general adult medical examination with abnormal findings: Code(s): Z00.01 - Encounter for general adult medical examination with abnormal findings Category: Medical (2) Hypertension, essential: Code(s): I10 - Essential (primary) hypertension Category: Medical (3) Asthma, moderate persistent: Code(s): J45.40 - Moderate persistent asthma, uncomplicated Category: Medical Qualifiers: Asthma complication type: uncomplicated Qualified Code(s): J45.40 - Moderate persistent asthma, uncomplicated (4) Difficulty sleeping: Code(s): G47.9 - Sleep disorder, unspecified Category: Medical (5) Chronic pain: Code(s): G89.29 - Other chronic pain Category: Medical Qualifiers: Chronic pain type: chronic pain syndrome Qualified Code(s): G89.4 - Chronic pain syndrome (6) Polyarthralgia: Code(s): M25.50 - Pain in unspecified joint Category: Medical (7) COPD mixed type: Code(s): J44.9 - Chronic obstructive pulmonary disease, unspecified Category: Medical (8) Psoriatic arthritis: Code(s): L40.50 - Arthropathic psoriasis, unspecified Category: Medical (9) Chronic GERD: Code(s): K21.9 - Gastro-esophageal reflux disease without esophagitis Category: Medical Plan 54-year-old male came in today for physical exam Patient has not done labs still in spite of me reminding him last visit Patient had colonoscopy 2020 at [facility] Asthma: Stable with Spiriva and Advair, , He has finally stopped smoking in February 2024 Patient has smoked over 30 years 1 pack per day, had lung cancer screening He does have history of GERD and is taking omeprazole 20 mg He also goes for balloon dilatation of esophagus every few months by Dr. Johnson last dilatation was in February 2024 Patient have psoriatic arthritis and is taking adalimumanb through rheumatology and naproxen as needed I have started him on gabapentin 300 mg at night to help him with the pain control, patient says that it is helping - The pain affects multiple joints including knees, back, and shoulders, with stiffness primarily in the morning and evening. . - Past rheumatology consults were unsuccessful in further diagnosis of joint-related symptoms such as numbness. - Patient acknowledges pain persists despite trial of multiple treatment regimens for symptom control. 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 Diagnostic results - Labs: CBC is good, electrolytes are normal, kidney function is stable, liver enzymes within normal limits, and cholesterol is acceptable. May of last year Patient Instructions - Continue current medications as prescribed. - Follow up with rheumatology for further evaluation on Psoriatic Arthritis-related pain. - Confirm next colonoscopy date with Dr. Johnson. - Practice smoking cessation and continue using nicotine patches. - Monitor pain levels and any new symptoms, reporting significant changes during the next visit. Orders: Orders Complete Blood Count Auto Diff Today G47.9 - Sleep disorder, unspecified, G89.29 - Other chronic pain, I10 - Essential (primary) hypertension, J44.9 - Chronic obstructive pulmonary disease, unspecified, J45.40 - Moderate persistent asthma, uncomplicated, K21.9 - Gastro-esophageal reflux disease without esophagitis, L40.50 - Arthropathic psoriasis, unspecified, M25.50 - Pain in unspecified joint, Z00.01 - Encounter for general adult medical examination with abnormal findings Comprehensive Met. Panel Today G47.9 - Sleep disorder, unspecified, G89.29 - Other chronic pain, I10 - Essential (primary) hypertension, J44.9 - Chronic obstructive pulmonary disease, unspecified, J45.40 - Moderate persistent asthma, uncomplicated, K21.9 - Gastro-esophageal reflux disease without esophagitis, L40.50 - Arthropathic psoriasis, unspecified, M25.50 - Pain in unspecified joint, Z00.01 - Encounter for general adult medical examination with abnormal findings LDL Cholesterol Direct Today G47.9 - Sleep disorder, unspecified, G89.29 - Other chronic pain, I10 - Essential (primary) hypertension, J44.9 - Chronic obstructive pulmonary disease, unspecified, J45.40 - Moderate persistent asthma, uncomplicated, K21.9 - Gastro-esophageal reflux disease without esophagitis, L40.50 - Arthropathic psoriasis, unspecified, M25.50 - Pain in unspecified joint, Z00.01 - Encounter for general adult medical examination with abnormal findings Referrals Rheumatology Referral L40.50 - Arthropathic psoriasis, unspecified
[2024-10-07 08:24] VITALS: BP 124/78; PULSE 81; RESP 18; O2SAT 98; BMI 25.0
== END 2024-10-07 08:49 | disposition home or self-care (01) ==
LOC: HO.HMCC 08:23
PROVIDERS: PCP Internal Medicine; Visit Provider Internal Medicine
DX: Z00.01 Encounter for general adult medical examination with abnormal findings (principal); G89.4 Chronic pain syndrome; J44.9 Chronic obstructive pulmonary disease, unspecified; L40.50 Arthropathic psoriasis, unspecified; J45.40 Moderate persistent asthma, uncomplicated; I10 Essential (primary) hypertension; G47.9 Sleep disorder, unspecified; M25.50 Pain in unspecified joint; K21.9 Gastro-esophageal reflux disease without esophagitis

== ENCOUNTER → 2024-10-07 08:22 | Outpatient (BNVA) | payer OTHER, SELFPAY | PROVIDERS: PCP Internal Medicine; Visit Provider Internal Medicine | DX: Z00.01 Encounter for general adult medical examination with abnormal findings (principal); I10 Essential (primary) hypertension; J45.40 Moderate persistent asthma, uncomplicated; G47.9 Sleep disorder, unspecified; G89.4 Chronic pain syndrome; M25.50 Pain in unspecified joint; J44.9 Chronic obstructive pulmonary disease, unspecified; L40.50 Arthropathic psoriasis, unspecified; K21.9 Gastro-esophageal reflux disease without esophagitis | CPT/HCPCS: 96127; 99212; 99396 ==

== ENCOUNTER 2025-01-06 08:24 | Outpatient (AMB) | payer OTHER, SELFPAY ==
--- OUTSIDE RECORDS SUMMARY | 2024-04-13 07:30 | XMS_ITS ---
Author Organization [facility] Address [address] [place] [phone] Care Team Providers Care Wash Driller Helper Name Role Phone Garrison CEDEÑO, [facility] Primary Care Provider Jerman Vasques [phone] REASON FOR VISIT esophageal ring,globus sensation,dysphagia, eosinophilic esophagitis Problems Problem Type SNOMED Code ICD Code Onset Dates Problem Status W/U Status Risk Notes Problem Gastro-esophagea l reflux disease without esophagitis (328621080) Gastro-esophage al reflux disease without esophagitis (K21.9) Active confirmed Problem Dysphagia (R13.10) Active confirmed Problem Globus sensation (230765591) Globus sensation (F45.8) Active confirmed Encounters Encounter Location Date Provider Diagnosis [facility] [place] [address] [place] [phone] 04/13/2024 Jerman Johnson Gastro-esophageal reflux disease without esophagitis K21.9 and Dysphagia R13.10 Assessments Encounter Date Diagnosis (ICD Code) Assessment Notes Treatment Notes Treatment Clinical Notes Section Notes 04/13/2024 Gastro-esophagea l reflux disease without esophagitis (ICD-10 - K21.9) 04/13/2024 Dysphagia (ICD-10 - R13.10) Plan Of Treatment No Information Progress Notes * AMEENA XIEDOB: 2 (54 yo M)Acc No.[id number]:04/13/2024 EGD/MAC Patient: Marta WYLIE AMEENA Provider: Hunter Johnson MD :1970 A ge:53 Y S ex:Male Date:04/13/2024 Address:[address] [place], [place] [phone] Pcp:Chandu Ji MD Subjective: * Chief Complaints: * 1 . Esophageal ring,globus sensation,dysphagia, eosinophilic esophagitis. * Medical History: Objective: * Vitals: Assessment: * Assessment: 1. G oskar-esophageal reflux disease without esophagitis - K21.9 (Primary) 2 .?Dysphagia - R13.10 Plan: * Treatment: * Procedure Codes: 4 3249 ESOPH ENDOSCOPY, DILATION, 45982 UPPER GI ENDOSCOPY, BIOPSY, Modifiers: 59 * * The named appointment provid er may or may not be the originator of this progress note, and it is not deemed complete until electronically signed by the appointment provider. Sign off status: Pending * Provider: Hunter Johnson MD Date: 0 04/13/2024 Generated for Avinash kelley/Jsoh/Naboritting on: 0 01/06/2025 08:38 AM EDT
--- NOTE | 2025-01-06 08:27 | A.OFFPC_ITS ---
Vital Signs 01/06/25 08:28 Height 5 ft 9 in Weight 164 lb BMI 24.2 BP 122/80 Blood Pressure Location Rt brachial Position Sitting Respiration 16 Pulse 80 Pulse Source Pulse Oximeter Temp 98.1 F Temp Source Oral Pulse Oximetry (%) 97 Oxygen Delivery Method Room Air Intake Visit Reasons: 3 months f/up Allergies morphine Allergy (Verified 01/06/25 08:31) Nausea Medication List - Last Reconciled 01/06/25 by Chandu Ji MD adalimumab inject one - 40 mg/0.4 mL pen every 2 weeks subcut gabapentin 300 mg PO BEDTIME 90 days losartan-hydrochlorothiazide 50-12.5 mg 1 tab PO DAILY mirtazapine 15 mg PO BEDTIME nicotine 1 patch transdermal Q24H omeprazole 20 mg PO DAILY 90 days tiotropium bromide 2.5 mcg/actuation (Spiriva Respimat) 2 puffs inhalation QAM Ventolin HFA 90 mcg/actuation (albuterol sulfate) 1 puff inhalation QID PRN NS [wrist splint wear nightly and as much as possible throughout the day] Tobacco use date assessed: 01/06/25 Dental Screening Dental Screen Date: 01/06/25 Did you have a dental visit in the last 12 months?: No Did you have a dental problem in the last 6 months where you did not have access to dental care?: No Was dental information given to patient?: Patient has dentist HPI 3 months f/up HPI Details Labs today, nicotine 21, Wellbutrin, follow-up 3 months check on pulmonary function test Wheezing right lung 54-year-old male came in today for regul ar follow-up appointment Has not done labs ordered in August he will do them today Asthma: Stable with Spiriva and Advair, , tells me that he had pulmonary function test in the past but I can not find the report We will get in touch with respiratory department to retrieve the report On exam today he has slight wheezing right side of lung but complained of no shortness of breath Currently he is on 14 mg of nicotine patch and has been smoking here and there Requesting to go up on the strength of patch to 21 mg And he has also tried Wellbutrin in the past and tolerated it well, patient is requesting if we can add that as well so he can stop smoking Patient has smoked over 30 years 1 pack per day, had lung cancer screening earlier this year He does have history of GERD and is taking omeprazole 20 mg He also goes for balloon dilatation of esophagus every few months by Dr. Johnson last dilatation was in February 2024 Patient have psoriatic arthritis and is taking adalimumanb through rheumatology and naproxen as needed I have started him on gabapentin 300 mg at night to help him with the pain control, patient says that it is helping - The pain affects multiple joints inclu ding knees, back, and shoulders, with stiffness primarily in the morning and evening. . - Past rheumatology consults were unsucc essful in further diagnosis of joint- related symptoms such as numbness. - Patient acknowledges pain persists lexis pite trial of multiple treatment re gimens for symptom control. 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 Patient Instructions - Continue current medications as prescr ibed. - Follow up with rheumatology for furthe r evaluation on Psoriatic Arthritis- related pain. - 21 mg of nicotine patch sent along wit h Wellbutrin to be taken once a day - labs to be done today - follow-up 3 months Review of Systems - General: No fever no chills - Neurological: No headaches no dizzin ess - Ear nose throat: No sore throat no hearing difficulty no ear pain - Cardiovascular: No syncope, no chest pain, no palpitations - Gastrointestinal: No nausea vomiting or diarrhea - Endocrine: No polyuria polydipsia no heat intolerance - Genitourinary: No dysuria - Skin: No new complaints Physical Exam General: Cooperative, healthy appearing, comfortable, no acute distress Orientation: Patient oriented x3 Head and neck: Normal to inspection Ears: Within normal limit visually Nose: Normal external nose present Face and sinus: Normal facial exam Eyes: Appearance normal, extraocular movement intact pupils reactive Neck: Normal visual inspection and supple Respiratory: Mild wheezing right lung, air entry good Cardiovascular: S1 and S2 regular in rate and rhythm Skin: Turgor normal, no acute findings Neuro: Patient oriented x3, motor sensory intact PFSH Medical History Polyarthralgia Psoriasis HTN (hypertension) COPD (chronic obstructive pulmonary disease) Asthma Personal history of nicotine dependence GERD (gastroesophageal reflux disease) Diverticulitis History of colon polyps Surgical History History of tonsillectomy History of colonoscopy History of esophagogastroduodenoscopy (EGD) Family History Daughter Crohn's colitis Social History Household Members: Spouse Housing: House Are you a primary primary care nurse practitioner to a significant other at home: No Do you presently have visiting nurse or other home services: No Alcohol intake: current Alcohol intake frequency: a few times a week Patient Tobacco Use Status: Current someday Tobacco user Tobacco use type: Cigarette Years Smoked: (onset 17yo, 1ppd x 36yrs, 35pyh - quit 02/2024) e-Cigarette/Vaping Use: Never Used service: No Current occupational status: employed 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 Cognitive needs: No Hearing needs: No Vision needs: No Questionnaire Thrive Questionnaire Date Thrive assessed: 09/30/24 I am a: Patient What is your living situation today?: I have a steady place to live Within the past 12 months, did the food you bought not last and you didn't have the money to get more?: Never true Within the past 12 months, did you worry whether your food would run out before you got money to buy more?: Never true Do you have trouble paying for medicines?: No Do you have trouble getting transportation to medical appointments?: No Do you have trouble paying your heating and electricity bill?: No Do you have trouble taking care of your child, family member or friend?: No Do you have trouble with day-to-day activities such as bathing, preparing meals, shopping, managing finances, etc.?: No Are you currently unemployed and looking for a job?: No Are you interested in more education?: No Please select the resources that you would like help with: None Currently or been in a relationship where the following occur: No concerns reported THRIVE Score: 0 DESTINEY-7 AMB Questionnaire DESTINEY-7 Date DESTINEY - 7 assessed: 10/07/24 Source: Developed by Drs. Jerman El, Ruby Galaviz, Carlos Rocha and colleagues, with an educational hina from [employer]. Physical exam (Primary Care) Vital Signs: Last Vital Signs Temp 98.1 F 01/06/25 08:28 Pulse 80 01/06/25 08:28 Resp 16 01/06/25 08:28 BP 122/80 01/06/25 08:28 Pulse Ox 97 01/06/25 08:28 Oxygen Delivery Method Room Air 01/06/25 08:28 BMI result Body Mass Index 24.2 Tobacco/Smoking Status: Tobacco use Status Tobacco use date assessed 01/06/25 01/06/25 08:31 Patient Tobacco Use Status Current someday Tobacco 01/06/25 08:31 Tobacco use type Cigarette 01/06/25 08:31 e-Cigarette/Vaping Use Never Used 01/06/25 08:31 Thrive Assessment: Date of Thrive Assessment Date Thrive assessed 09/30/24 01/06/25 08:31 Currently or been in a relationship where the following occur: No concerns reported Coding Level of Care Code Est Pt Level 4 (29255) Diagnoses Hypertension, essential I10 Moderate persistent asthma without complication J45.40 Asthma complication type: uncomplicated Difficulty sleeping G47.9 Chronic pain syndrome G89.4 Chronic pain type: chronic pain syndrome Polyarthralgia M25.50 COPD mixed type J44.9 Psoriatic arthritis L40.50 Chronic GERD K21.9 Cigarette nicotine dependence without complication F17.210 Nicotine product type: cigarettes Substance use status: uncomplicated Assessment & Plan Assessment & Plan (1) Hypertension, essential: Code(s): I10 - Essential (primary) hypertension Category: Medical (2) Asthma, moderate persistent: Code(s): J45.40 - Moderate persistent asthma, uncomplicated Category: Medical Qualifiers: Asthma complication type: uncomplicated Qualified Code(s): J45.40 - Moderate persistent asthma, uncomplicated (3) Difficulty sleeping: Code(s): G47.9 - Sleep disorder, unspecified Category: Medical (4) Chronic pain: Code(s): G89.29 - Other chronic pain Category: Medical Qualifiers: Chronic pain type: chronic pain syndrome Qualified Code(s): G89.4 - Chronic pain syndrome (5) Polyarthralgia: Code(s): M25.50 - Pain in unspecified joint Category: Medical (6) COPD mixed type: Code(s): J44.9 - Chronic obstructive pulmonary disease, unspecified Category: Medical (7) Psoriatic arthritis: Code(s): L40.50 - Arthropathic psoriasis, unspecified Category: Medical (8) Chronic GERD: Code(s): K21.9 - Gastro-esophageal reflux disease without esophagitis Category: Medical (9) Nicotine dependence: Code(s): F17.200 - Nicotine dependence, unspecified, uncomplicated Category: Medical Qualifiers: Nicotine product type: cigarettes Substance use status: uncomplicated Qualified Code(s): F17.210 - Nicotine dependence, cigarettes, uncomplicated Plan 54-year-old male came in today for regular follow-up appointment Has not done labs ordered in August he will do them today Asthma: Stable with Spiriva and Advair, , tells me that he had pulmonary function test in the past but I can not find the report We will get in touch with respiratory department to retrieve the report On exam today he has slight wheezing right side of lung but complained of no shortness of breath Currently he is on 14 mg of nicotine patch and has been smoking here and there Requesting to go up on the strength of patch to 21 mg And he has also tried Wellbutrin in the past and tolerated it well, patient is requesting if we can add that as well so he can stop smoking Patient has smoked over 30 years 1 pack per day, had lung cancer screening earlier this year He does have history of GERD and is taking omeprazole 20 mg He also goes for balloon dilatation of esophagus every few months by Dr. Johnson last dilatation was in February 2024 Patient have psoriatic arthritis and is taking adalimumanb through rheumatology and naproxen as needed I have started him on gabapentin 300 mg at night to help him with the pain control, patient says that it is helping - The pain affects multiple joints including knees, back, and shoulders, with stiffness primarily in the morning and evening. . - Past rheumatology consults were unsuccessful in further diagnosis of joint- related symptoms such as numbness. - Patient acknowledges pain persists despite trial of multiple treatment regimens for symptom control. 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 Patient Instructions - Continue current medications as prescribed. - Follow up with rheumatology for further evaluation on Psoriatic Arthritis- related pain. - 21 mg of nicotine patch sent along with Wellbutrin to be taken once a day - labs to be done today - follow-up 3 months Medications: New 2 bupropion HCl SR (Wellbutrin SR) 100 mg PO QAM 90 tabs 0RF Changed From nicotine 1 patch transdermal Q24H 28 ea 1RF To nicotine 1 patch transdermal Q24H 28 ea 1RF
[2025-01-06 08:28] VITALS: BP 122/80; PULSE 80; RESP 16; TEMP 36.7; O2SAT 97; BMI 24.2
== END 2025-01-06 08:42 | disposition home or self-care (01) ==
LOC: HO.HMCC 08:25
PROVIDERS: PCP Internal Medicine; Visit Provider Internal Medicine
DX: I10 Essential (primary) hypertension (principal); J44.9 Chronic obstructive pulmonary disease, unspecified; L40.50 Arthropathic psoriasis, unspecified; J45.40 Moderate persistent asthma, uncomplicated; G47.9 Sleep disorder, unspecified; G89.4 Chronic pain syndrome; M25.50 Pain in unspecified joint; K21.9 Gastro-esophageal reflux disease without esophagitis; F17.210 Nicotine dependence, cigarettes, uncomplicated

== ENCOUNTER 2025-01-06 08:24 | Outpatient (REF) | payer OTHER, SELFPAY ==
[2025-01-06 10:27] LABS: MANUAL DIFF FLAG NO
[2025-01-06 10:30] LABS: Basophils Absolute Auto 0.1 X10*3/uL (0.0-0.2); Eosinophils Absolute Auto 0.4 X10*3/uL (0.0-0.4); Eosinophils Percent Auto 4.1 % (0-4); Hematocrit 41.6 % (42.0-52.0); Hemoglobin 15.1 g/dl (14.0-18.0); Imm Gran Abs Auto 0.03 X10*3/uL (0.00-0.03); Imm Gran Pct Auto 0.3 % (0.0-0.4); Lymphocytes Absolute Auto 2.6 X10*3/uL (1.2-4.9); Lymphocytes Percent Auto 27.5 % (20-40); Mean Corpuscular HGB Conc 36.3 g/dl (31.0-36.0); Mean Corpuscular Hemoglobin 32.5 pg (27.0-33.0); Mean Corpuscular Volume 89.5 fL (80.0-98.0); Mean Platelet Volume 10.8 fL (9.4-12.4); Monocytes Absolute Auto 0.8 X10*3/uL (0.1-1.2); Monocytes Percent Auto 8.1 % (2-11); Neutrophils Absolute Auto 5.6 x10*3/uL (2.0-8.3); Platelet Count 324 X10*3/uL (160-400); Red Blood Count 4.65 X10*6/uL (4.60-5.80); Red Cell Distribution Width 12.1 % (11.0-16.0); White Blood Count 9.6 X10*3/uL (4.8-10.8)
[2025-01-06 10:45] LABS: Alanine Aminotransferase 15 U/L (0-40); Albumin Level 4.3 g/dL (3.5-5.0); Alkaline Phosphatase 87 U/L (39-117); Anion Gap 13 (12-20); Aspartate Amino Transferase 24 U/L (5-37); Bilirubin Total 0.5 mg/dL (0.0-1.0); Blood Urea Nitrogen 8 mg/dL (9-16); Calcium 9.4 mg/dL (8.4-10.2); Carbon Dioxide 25 mmol/L (22-29); Chloride 104 mmol/L (96-108); Estimated Glomerular Filt Rate > 60; Glucose Random 98 mg/dL (60-115); Potassium 3.7 mmol/L (3.3-5.1); Sodium 138 mmol/L (135-145); Total Protein 7.4 g/dL (6.5-8.0)
[2025-01-08 08:08] LABS: LDL Cholesterol Direct 124 mg/dL (<100)
[2025-01-08 23:23] LABS: TS Negative Control Passed; TS Panel A 0; TS Panel B 0; TS Positive Control Passed; TSpotTB Negative (Negative)
== END 2025-01-06 08:25 | disposition home or self-care (01) ==
LOC: HO.HMGCLDS 08:24
PROVIDERS: PCP Internal Medicine; Referring Provider Physician Assistant Medical; Visit Provider Internal Medicine
DX: Z11.1 Encounter for screening for respiratory tuberculosis (principal); I10 Essential (primary) hypertension; J45.40 Moderate persistent asthma, uncomplicated; G47.9 Sleep disorder, unspecified; G89.29 Other chronic pain; M25.50 Pain in unspecified joint; J44.9 Chronic obstructive pulmonary disease, unspecified; L40.50 Arthropathic psoriasis, unspecified; K21.9 Gastro-esophageal reflux disease without esophagitis; L40.0 Psoriasis vulgaris; L40.59 Other psoriatic arthropathy; F17.210 Nicotine dependence, cigarettes, uncomplicated; Z71.6 Tobacco abuse counseling; Z79.899 Other long term (current) drug therapy
CPT/HCPCS: 36415; 80053; 83721; 85025; 86481; 99212

== ENCOUNTER 2025-04-07 08:23 | Outpatient (AMB) | payer OTHER, SELFPAY ==
--- OUTSIDE RECORDS SUMMARY | 2024-04-13 07:30 | XMS_ITS ---
Author Organization [facility] Address [address] [place] [phone] Care Team Providers Care Ob/Gyn Physician Name Role Phone Garrison CEDEÑO, [facility] Primary Care Provider Jerman Vasques [phone] REASON FOR VISIT esophageal ring,globus sensation,dysphagia, eosinophilic esophagitis Problems Problem Type SNOMED Code ICD Code Onset Dates Problem Status W/U Status Risk Notes Problem Gastro-esophagea l reflux disease without esophagitis (690030810) Gastro-esophage al reflux disease without esophagitis (K21.9) Active confirmed Problem Dysphagia (94640913) Dysphagia (R13.10) Active confirmed Problem Globus sensation (136040856) Globus sensation (F45.8) Active confirmed Encounters Encounter Location Date Provider Diagnosis [facility] [place] [address] [place] [phone] 04/13/2024 Jerman Johnson Gastro-esophageal reflux disease without esophagitis K21.9 and Dysphagia R13.10 Assessments Encounter Date Diagnosis (ICD Code) Assessment Notes Treatment Notes Treatment Clinical Notes Section Notes 04/13/2024 Gastro-esophagea l reflux disease without esophagitis (ICD-10 - K21.9) 04/13/2024 Dysphagia (ICD-10 - R13.10) Plan Of Treatment No Information Progress Notes * AMEENA XIEDOB: 2 (54 yo M)Acc No.[id number]:04/13/2024 EGD/MAC Patient: AMEENA DUPREE Provider: Hunter Johnson MD :1970 A ge:53 Y S ex:Male Date:04/13/2024 Address:[address] [place], [place] [phone] Pcp:Chandu Ji MD Subjective: * Chief Complaints: * 1 . Esophageal ring,globus sensation,dysphagia, eosinophilic esophagitis. * Medical History: Objective: * Vitals: Assessment: * Assessment: 1. G oskar-esophageal reflux disease without esophagitis - K21.9 (Primary) 2 .?Dysphagia - R13.10 Plan: * Treatment: * Procedure Codes: 4 3249 ESOPH ENDOSCOPY, DILATION, 01016 UPPER GI ENDOSCOPY, BIOPSY, Modifiers: 59 * * The named appointment provid er may or may not be the originator of this progress note, and it is not deemed complete until electronically signed by the appointment provider. Sign off status: Pending * Provider: Hunter Johnson MD Date: 0 04/13/2024 Generated for Avinash kelley/Josh/Naboritting on: 0 04/07/2025 09:15 AM EDT
[2025-04-07 08:27] VITALS: BP 120/80; PULSE 79; O2SAT 95; BMI 23.8
--- NOTE | 2025-04-07 08:27 | A.OFFPC_ITS ---
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 Accompanied by: Self / Same As Patient Allergies morphine Allergy (Verified 04/07/25 08:28) Nausea Medication List - Last Reconciled 04/07/25 by Chandu Ji MD adalimumab inject one - 40 mg/0.4 mL pen every 2 weeks subcut bupropion HCl SR (Wellbutrin SR) 100 mg PO QAM gabapentin 300 mg PO BEDTIME 90 days losartan-hydrochlorothiazide 50-12.5 mg 1 tab PO DAILY mirtazapine 15 mg PO BEDTIME nicotine 1 patch transdermal DAILY omeprazole 20 mg PO DAILY 90 days tiotropium bromide 2.5 mcg/actuation (Spiriva Respimat) 2 puffs inhalation QAM Ventolin HFA 90 mcg/actuation (albuterol sulfate) 1 puff inhalation QID PRN NS [wrist splint wear nightly and as much as possible throughout the day] Tobacco use date assessed: 01/06/25 Dental Screening Dental Screen Date: 01/06/25 HPI 3 m follow up/inactive insurance check with oa HPI Details History The patient is a 54-year-old male presenting with chronic pain and smoking habits. And three-month follow-up appointment Chronic pain: - The patient experiences joint pain att ributed to psoriatic arthritis. - Reports soreness persisting despite on going injection treatments and gabapentin use. - Pain significantly impacts daily activ ities, making it difficult to get out of bed and affecting sleep due to tosses and turns at night. - Experiences numbness in hips, arms, an d hands during extended driving and night. - Denies drowsiness with current gabapen tin dosage (300 mg at night). Smoking: - Chronic smoker with a history of smoki ng impacting COPD. - Currently smokes approximately six to eight cigarettes daily despite using nicotine patches. - Considering hypnosis as an aid for smo fidencio cessation. - Expresses enjoyment of smoking but und erstands the health impacts. Medical History: - Psoriatic arthritis, managed with Dili mobap injections. - Depression, treated with Wellbutrin. - Chronic pain managed with Gabapentin ( 300 mg, orally, BID). - Hypertension, managed with Losartan Hy drochlorothiazide. - Psoriasis, managed through dermatologi eufemia care. - GERD, under management with Omeprazole 20 mg. - COPD, treated with Ciprivo and Albuter ol inhalers. - Insomnia, treated with Mirtazapine 15 mg as needed for sleep. 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 - Substance use: Chronic smoker, current ly smokes six to eight cigarettes per day. - Uses nicotine patches but continues to smoke. - Reports considering hypnosis as an opt ion for smoking cessation. Problem List - Psoriatic arthritis - Psoriasis - Depression - Essential hypertension - Gastroesophageal reflux disease (GERD) - Chronic Obstructive Pulmonary Disease (COPD) - Chronic insomnia - pain management Diagnostic results - Labs in December: CBC reviewed with normal white count and hemoglobin, electrolytes within normal limits, intact kidney and liver function, LDL of 124 [place] of Care - Lard Mixer managing psoriasis and p rescribing Dilimobap injections. - Rheumatology appointment scheduled for April 22. Patient Instructions - Try a doubled dose of Gabapentin (600 mg) at night and avoid Mirtazapine during this trial. - Gradually reduce smoking with the aim to quit; consider non-smoking aids as desired. Stop using Nicoderm patches if you still smoking - If experiencing heightened side effect s, contact the physician. - Blood tests to be done before the next appointment. Review of Systems General: No fever no chills neurological: No headaches no dizziness ear nose throat: No sore throat no hearing difficulty no ear pain cardiovascular: No syncope, no chest pain, no palpitations gastrointestinal: No nausea vomiting or diarrhea endocrine: No polyuria polydipsia no heat intolerance genitourinary: No dysuria skin: No new complaints Physical Exam general: No acute distress HEENT: No acute findings neck: Supple respiratory system: Able to talk in full sentences, no audible wheeze, slight wheezing on the right side cardiovascular: S1-S2 RRR gastrointestinal: No pain extremities: No new findings 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 awake oriented x3 motor sensory intact skin: Normal turgor [facility] Medical History Polyarthralgia Psoriasis HTN (hypertension) COPD (chronic obstructive pulmonary disease) Asthma Personal history of nicotine dependence GERD (gastroesophageal reflux disease) Diverticulitis History of colon polyps Surgical History History of tonsillectomy History of colonoscopy History of esophagogastroduodenoscopy (EGD) Family History Daughter Crohn's colitis Social History Household Members: Spouse Housing: House Are you a primary career agent to a significant other at home: No Do you presently have visiting nurse or other home services: No Alcohol intake: current Alcohol intake frequency: a few times a week Patient Tobacco Use Status: Current someday Tobacco user Tobacco use type: Cigarette Years Smoked: (onset 17yo, 1ppd x 36yrs, 35pyh - quit 02/2024) e-Cigarette/Vaping Use: Never Used service: No Current occupational status: employed 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 1. Little interest or pleasure in doing things: not at all 2. Feeling down, depressed, or hopeless: not at all 3. Trouble falling or staying asleep, or sleeping too much: several days 4. Feeling tired or having little energy: several days 5. Poor appetite or overeating: not at all 6. Feeling bad about yourself - or that you are a failure or have let yourself or your family down: not at all 7. Trouble concentrating on things, such as reading the newspaper or watching television: not at all 8. Moving or speaking so slowly that other people could have noticed. Or the opposite - being so fidgety or restless that you have been moving around a lot more than usual: not at all 9. Thoughts that you would be better off or of hurting yourself in some way: not at all Total score: 2 Depression Screening Interpretation: Negative Depression Screening Done: Yes 20530 - PHQ-9 Billing: Yes Source: Developed by Drs. Jerman El, Ruby Galaviz, Carlos Rocha and colleagues, with an educational hina from [employer]. Thrive Questionnaire Date Thrive assessed: 09/30/24 I am a: Patient What is your living situation today?: I have a steady place to live Within the past 12 months, did the food you bought not last and you didn't have the money to get more?: Never true Within the past 12 months, did you worry whether your food would run out before you got money to buy more?: Never true Do you have trouble paying for medicines?: No Do you have trouble getting transportation to medical appointments?: No Do you have trouble paying your heating and electricity bill?: No Do you have trouble taking care of your child, family member or friend?: No Do you have trouble with day-to-day activities such as bathing, preparing meals, shopping, managing finances, etc.?: No Are you currently unemployed and looking for a job?: No Are you interested in more education?: No Please select the resources that you would like help with: None Currently or been in a relationship where the following occur: No concerns reported THRIVE Score: 0 AUDIT C Alcohol Use Questionnaire (AUDIT-C) 1. How often do you have a drink containing alcohol?: 2-3 times a week 2. How many drinks containing alcohol do you have on a typical day when you are drinking?: 1 or 2 3. How often do you have six or more drinks on one occasion?: Never Total Score: 3 DESTINEY-7 AMB Questionnaire DESTINEY-7 Date DESTINEY - 7 assessed: 10/07/24 Feeling nervous, anxious, or on edge: 0 = Not at all Not being able to stop or control worryin = Not at all Worrying too much about different things: 0 = Not at all Trouble relaxin = Not at all Being so restless that it is hard to sit still: 1 = Several days Becoming easily annoyed or irritable: 1 = Several days Feeling afraid as if something awful might happen: 0 = Not at all Total DESTINEY-7 score (0-4 normal; 5-9 mild; 10-14 moderate; 15-21 severe): 2 Source: Developed by Drs. Jerman El, Ruby Galaviz, Carlos Rocha and colleagues, with an educational hina from [employer]. DESTINEY-7 Assessment Billing DESTINEY-7 Assessment Tool: DESTINEY-7 Assessment 19356 Physical exam (Primary Care) Vital Signs: Last Vital Signs Pulse 79 04/07/25 08:27 BP 120/80 04/07/25 08:27 Pulse Ox 95 04/07/25 08:27 Oxygen Delivery Method Room Air 04/07/25 08:27 BMI result Body Mass Index 23.8 Tobacco/Smoking Status: Tobacco use Status Tobacco use date assessed 01/06/25 04/07/25 08:32 Patient Tobacco Use Status Current someday Tobacco 04/07/25 08:32 Tobacco use type Cigarette 04/07/25 08:32 e-Cigarette/Vaping Use Never Used 04/07/25 08:32 Are you ready to quit: Yes Tobacco cessation counseling provided: Yes Relapse Prevention: discussed the importance of a supportive environment and discussed dietary, exercise and/or lifestyle changes CPT code: 96619 - 4-10 Minutes PHQ-9: PHQ-9 Score PHQ-9: Total score 2 04/07/25 08:32 Depression Screening Interpretation: Negative Thrive Assessment: Date of Thrive Assessment Date Thrive assessed 09/30/24 04/07/25 08:32 Currently or been in a relationship where the following occur: No concerns reported Coding Level of Care Code Est Pt Level 5 (56152) Diagnoses Wheezing R06.2 COPD mixed type J44.9 Hypertension, essential I10 Psoriatic arthritis L40.50 Polyarthralgia M25.50 Chronic midline low back pain without sciatica M54.50; G89.29 Chronicity: chronic Back pain laterality: midline Sciatica presence: without sciatica Difficulty sleeping G47.9 Cigarette nicotine dependence without complication F17.210 Nicotine product type: cigarettes Substance use status: uncomplicated Additional Codes PHQ-9 - 38038 - PHQ-9 Billing: Yes ([id number]) DESTINEY-7 Assessment Billing - DESTINEY-7 Assessment Tool: DESTINEY-7 Assessment 83930 ([id number]) Vital Signs *Quality* - CPT code: 16452 - 4-10 Minutes ([id number]) Time Spent (min) 40 Comment reviewing records/labs, exam, counseling for tobacco cessation, coordination, documentat Assessment & Plan Assessment & Plan (1) Wheezing: Code(s): R06.2 - Wheezing Category: Medical (2) COPD mixed type: Code(s): J44.9 - Chronic obstructive pulmonary disease, unspecified Category: Medical (3) Hypertension, essential: Code(s): I10 - Essential (primary) hypertension Category: Medical (4) Psoriatic arthritis: Code(s): L40.50 - Arthropathic psoriasis, unspecified Category: Medical (5) Polyarthralgia: Code(s): M25.50 - Pain in unspecified joint Category: Medical (6) Low back pain, unspecified: Code(s): M54.50 - Low back pain, unspecified Category: Medical Qualifiers: Chronicity: chronic Back pain laterality: midline Sciatica presence: without sciatica Qualified Code(s): M54.50 - Low back pain, unspecified; G89.29 - Other chronic pain (7) Difficulty sleeping: Code(s): G47.9 - Sleep disorder, unspecified Category: Medical (8) Nicotine dependence: Code(s): F17.200 - Nicotine dependence, unspecified, uncomplicated Category: Medical Qualifiers: Nicotine product type: cigarettes Substance use status: uncomplicated Qualified Code(s): F17.210 - Nicotine dependence, cigarettes, uncomplicated Plan History The patient is a 54-year-old male presenting with chronic pain and smoking habits. And three-month follow-up appointment Chronic pain: - The patient experiences joint pain attributed to psoriatic arthritis. - Reports soreness persisting despite ongoing injection treatments and gabapentin use. - Pain significantly impacts daily activities, making it difficult to get out of bed and affecting sleep due to tosses and turns at night. - Experiences numbness in hips, arms, and hands during extended driving and night. - Denies drowsiness with current gabapentin dosage (300 mg at night). Smoking: - Chronic smoker with a history of smoking impacting COPD. - Currently smokes approximately six to eight cigarettes daily despite using nicotine patches. - Considering hypnosis as an aid for smoking cessation. - Expresses enjoyment of smoking but understands the health impacts. Medical History: - Psoriatic arthritis, managed with Dilimobap injections. - Depression, treated with Wellbutrin. - Chronic pain managed with Gabapentin (300 mg, orally, BID). - Hypertension, managed with Losartan Hydrochlorothiazide. - Psoriasis, managed through dermatological care. - GERD, under management with Omeprazole 20 mg. - COPD, treated with Ciprivo and Albuterol inhalers. - Insomnia, treated with Mirtazapine 15 mg as needed for sleep. 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 - Substance use: Chronic smoker, currently smokes six to eight cigarettes per day. - Uses nicotine patches but continues to smoke. - Reports considering hypnosis as an option for smoking cessation. 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 - Rheumatology appointment scheduled for April 22. Patient Instructions - Try a doubled dose of Gabapentin (600 mg) at night and avoid Mirtazapine during this trial. - Gradually reduce smoking with the aim to quit; consider non-smoking aids as desired. Stop using Nicoderm patches if you still smoking - If experiencing heightened side effects, contact the physician. - Blood tests to be done before the next appointment. Orders: Orders Complete Blood Count Auto Diff Today F17.210 - Nicotine dependence, cigarettes, uncomplicated, G47.9 - Sleep disorder, unspecified, I10 - Essential (primary) hypertension, J44.9 - Chronic obstructive pulmonary disease, unspecified, L40.50 - Arthropathic psoriasis, unspecified, M25.50 - Pain in unspecified joint, M54.50 - Low back pain, unspecified, R06.2 - Wheezing Comprehensive [place]. Panel Fast Today F17.210 - Nicotine dependence, cigarettes, uncomplicated, G47.9 - Sleep disorder, unspecified, I10 - Essential (primary) hypertension, J44.9 - Chronic obstructive pulmonary disease, unspecified, L40.50 - Arthropathic psoriasis, unspecified, M25.50 - Pain in unspecified joint, M54.50 - Low back pain, unspecified, R06.2 - Wheezing Lipid Panel Today F17.210 - Nicotine dependence, cigarettes, uncomplicated, G47.9 - Sleep disorder, unspecified, I10 - Essential (primary) hypertension, J44.9 - Chronic obstructive pulmonary disease, unspecified, L40.50 - Arthropathic psoriasis, unspecified, M25.50 - Pain in unspecified joint, M54.50 - Low back pain, unspecified, R06.2 - Wheezing Medications: Changed From gabapentin 300 mg PO BEDTIME 90 days 90 caps 0RF To gabapentin 600 mg (2 x 300 mg) PO BEDTIME 180 caps 0RF 90 days Refilled tiotropium bromide 2.5 mcg/actuation (Spiriva Respimat) 2 puffs inhalation QAM 4 grams 2RF tiotropium bromide 2.5 mcg/actuation (Spiriva Respimat) 2 puffs inhalation QAM 4 grams 2RF Discontinued nicotine Discontinued Reason: Doctor's Order 1 patch transdermal DAILY 28 patches 1RF
--- OUTSIDE RECORDS SUMMARY | 2025-04-07 09:16 | XMS_ITS | Patient Health Record ---
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 Primary Care Provider Jerman Vasques [phone] Allergies No Known Allergies Results Component Value Reference Range Notes Pathology (Not yet reviewed by provider) Interpretation: Performing Lab:[facility], [address] [place] [id number] Notes/Report: Reason For Referral No Information Medications Medication SIG (Take, Route, Frequency, Duration) Notes Start Date End Date Status Nicotine 21 MG/24HR APPLY 1 PATCH TRANSD ERMALLY EVERY 24 HOURS Transdermal for 28 Active Losartan Potassium-HCTZ 50-12.5 MG TAKE 1 TABLET BY MOUTH EVERY DAY Oral for 90 Active Omeprazole 20 MG 1 capsule Orally Onc e a day for 30 Active Tiotropium Macy-Olodaterol 2.5-2.5 MCG/ACT 2 puffs Inhalation Once a [...] UTH AT BEDTIME Oral for 90 Active Social History Tobacco Use: Social History Observation Description Date Details (start date - stop date) Former Smoker NA - NA Tobacco Use/Smoking Question Answer Notes Patient is a former smoker How long has it been since you last smoked? < 1 month Section Notes: Smoker 1 ppd; no sig alcohol Smoker 1 ppd---but now only 1 or 2 cigs QD since 09/2017; no sig alcohol Smoker 1 ppd---but now only 1 or 2 cigs QD since 09/2017; no sig alcohol; 02/2024 quit smoking about a month ago Problems Problem Type SNOMED Code ICD Code Onset Dates Problem Status W/U Status Risk Notes Problem 6081621 Diverticulitis o f large intestine without perforation or abscess without bleeding (K57.32) Active confirmed Problem Gastro-esophage al reflux disease without esophagitis (410783755) Gastro-esophageal reflux disease without esophagitis (K21.9) Active confirmed Problem 284281699 Eosinophilic esophagitis (K20.0) Active confirmed Problem Dysphagia (68818143) Dysphagia (R13.10) Active confirmed Problem Computed tomography result abnormal (001135487) Abnormal CT scan, colon (R93.3) Active confirmed Problem 470902128 Esophageal ring (K22.2) Active confirmed Problem 26042014 Esophageal dysphagia (R13.10) Active confirmed Problem Globus sensation (632162794) Globus sensation (F45.8) Active confirmed Problem Globus sensation (727616546) Globus sensation (R09.89) Active confirmed Encounters Encounter Location Date Provider Diagnosis [facility] [place] [facility] [address] [place] [phone] 04/13/2024 Jerman Johnson Gastro-esophageal reflux disease without esophagitis K21.9 and Dysphagia R13.10 Assessments Encounter Date Diagnosis (ICD Code) Assessment Notes Treatment Notes Treatment Clinical Notes Section Notes 04/13/2024 Gastro-esophagea l reflux disease without esophagitis (ICD-10 - K21.9) 04/13/2024 Dysphagia (ICD-10 - R13.10) Plan Of Treatment Pending Test Test Name Order Date Pathology [...] Insured Coverage Start Date Coverage End Date [facility] [address] [place] [phone] [id number] AMEENA XIE Self - patient is the insured Medical (General) History Medical History History ICD Code EGD with [...] been specifically treated GERD--asymptomatic on omeprazole Denies VT,DM,CVA,Lung disease,renal dise ase Diverticulitis -09/2017--treated at [facility] with antibiotics Psoriasis Eosinophilic esophagitis as above #1 Hypertension Colonoscopy in January of 2018 was negative except for some diverticulosis and a hyperplastic polyp Upper endoscopy in January 2018 revealed a distal esophageal ring which was dilated up to a 20mm balloon with good effect Surgical History Surgery Date(Month/Year)
--- OUTSIDE RECORDS SUMMARY | 2025-04-07 09:16 | XMS_ITS | Clinical Summary ---
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 Name Role Phone Unavailable Primary Care Provider Unavailabl e Social History Tobacco Use Types Packs/Day Years Used Date Smoking Tobacco: Never Assessed Sex and Gender Information Value Date Recorded Sex Assigned at Not on file Legal Sex Male 3:42 AM EST Gender Identity Not on file Sexual Orientation Not on file Plan of Treatment Health Maintenance Due Date Last Done Comments DTaP,Tdap,and Td Vaccines (1 - Tdap) 1991 Hepatitis B Vaccines (1 of 3 - 19+ 3-dose series) 1991 Pneumococcal Vaccine: 50+ Ye ars (1 of 1 - PCV) 2022 Zoster Vaccines (1 of 2) 2022 Depression Screening 07/15/2024 COVID-19 Vaccine (1 - 2023-2 5 season) 2025 Influenza Vaccine (#1) 2025 HIB Vaccines Aged Out No longer eligi ble based on patient's age to complete this topic HPV Vaccines Aged Out No longer eligi ble based on patient's age to complete this topic Hepatitis A Vaccines Aged Out No long er eligible based on patient's age to complete this topic IPV Vaccines Aged Out No longer eligi ble based on patient's age to complete this topic MMR Vaccines Aged Out No longer eligi ble based on patient's age to complete this topic Meningococcal ACWY Vaccine Aged Out N o longer eligible based on patient's age to complete this topic Meningococcal B Vaccine Aged Out No l onger eligible based on patient's age to complete this topic RSV Immunization Patients Un michaela 20 months Aged Out No longer eligible b ased on patient's age to complete this topic Varicella Vaccines Aged Out No longer eligible based on patient's age to complete this topic Advance Directives Documents on File Type Date Recorded 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
== END 2025-04-07 09:02 | disposition home or self-care (01) ==
LOC: HO.HMCC 08:23
PROVIDERS: PCP Internal Medicine; Visit Provider Internal Medicine
DX: R06.2 Wheezing (principal); J44.9 Chronic obstructive pulmonary disease, unspecified; L40.50 Arthropathic psoriasis, unspecified; I10 Essential (primary) hypertension; M25.50 Pain in unspecified joint; M54.50 Low back pain, unspecified; G89.29 Other chronic pain; G47.9 Sleep disorder, unspecified; F17.210 Nicotine dependence, cigarettes, uncomplicated

== ENCOUNTER → 2025-04-07 08:23 | Outpatient (BNVA) | payer BC, SELFPAY | PROVIDERS: PCP Internal Medicine; Visit Provider Internal Medicine | DX: R06.2 Wheezing (principal); J44.9 Chronic obstructive pulmonary disease, unspecified; I10 Essential (primary) hypertension; L40.50 Arthropathic psoriasis, unspecified; M25.50 Pain in unspecified joint; M54.50 Low back pain, unspecified; G89.29 Other chronic pain; G47.00 Insomnia, unspecified; F32.A Depression, unspecified; F17.210 Nicotine dependence, cigarettes, uncomplicated; Z79.899 Other long term (current) drug therapy; Z13.31 Encounter for screening for depression | CPT/HCPCS: 96127; 99212 ==

== ENCOUNTER 2025-04-22 10:54 | Outpatient (AMB) | payer BC, SELFPAY ==
--- NOTE | 2025-04-22 10:56 | A.OFFVIS_ITS ---
Vital Signs 04/22/25 11:01 Height 5 ft 9 in Weight 160 lb 11.472 oz BMI 23.7 BP 120/80 Blood Pressure Location Lt brachial Pulse 84 Pulse Source Pulse Oximeter Pulse Oximetry (%) 99 Oxygen Delivery Method Room Air Intake Visit Reasons: psoriasis Intake Note: Patient presents today for PsA follow up. Accompanied by: Spouse Allergies morphine Allergy (Verified 04/22/25 11:01) Nausea HPI HPI psoriasis: Details: New patient visit. He is accompanied with his . Chronic back pain for many years is worse in the last year. His pain in the evening after work when he is resting and at night. He has difficulty sleeping due to pain in his lower back and sides of his hips that involves his thighs. He is constantly rubbing his thighs in the evening. Denies radiculopathy. Pain is described as soreness. He has stiffness in fingers at night and when he is sleeping. He has noctunal paresthesia from shoulders to hands. Hands fall asleep in the middle of the night. He shakes them and symptoms improve. He has pain in his feet. No joint swelling or dactylitis. 6 years ago he got bite by a snake leading to onset of knee pain. He had surgery in which a piece of muscle was removed local to the knee where he was bitten. He recovered but then started experiencing bilateral knee pain progressively getting worse. He is able to get up in the morning but has gel phenemena. With activity he improves and has no issues while working. He is able to work but then experiencing the knee pain after work when he is less active. He takes gabapentin 600mg qhs (increased from 300mg qhs 2 weeks ago by PCP) without change in his pain. He has not taken tylenol or an NSAID. He denies having any somnolence associated after taking gabapentin. He is unable to sleep even with gabapentin due to uncontrolled pain. He is on cosentyx for PsO prescribed by Dermatology. He was on Humira in the past for treatment of PsO. PsO is controlled. He continues to have joint pain on cosentyx. 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 [facility] Medical History Polyarthralgia Psoriasis HTN (hypertension) COPD (chronic obstructive pulmonary disease) Asthma Personal history of nicotine dependence GERD (gastroesophageal reflux disease) Diverticulitis History of colon polyps Surgical History History of tonsillectomy History of colonoscopy History of esophagogastroduodenoscopy (EGD) Family History Daughter Crohn's colitis Social History Household Members: Spouse Housing: House Are you a primary career development counselor to a significant other at home: No Do you presently have visiting nurse or other home services: No Alcohol intake: current Alcohol intake frequency: a few times a week Patient Tobacco Use Status: Current someday Tobacco user Tobacco use type: Cigarette Years Smoked: (onset 17yo, 1ppd x 36yrs, 35pyh - quit 02/2024) e-Cigarette/Vaping Use: Never Used service: No Current occupational status: employed 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 Good respiratory effort Skin: No lesions seen MSK: No tender joints or dactylitis. Normal ROM UE and LE. Normal cervical spine and lumbar spine ROM. He has lower lumbar spinous process tenderness. No groin tenderness. Bilateral trochanteric bursa tenderness found. He has points along his bilateral IT bands that are tender. Increase laxity of bilateral patella. No tenderness along bilateral heels or MTPs or achilles tendons. +bilateral jass's test and left tinel's test Vital Signs: Last Vital Signs Pulse 84 04/22/25 11:01 BP 120/80 04/22/25 11:01 Pulse Ox 99 04/22/25 11:01 Oxygen Delivery Method Room Air 04/22/25 11:01 BMI result Body Mass Index 23.7 Office Procedures AMB Joint Injection/Aspiration Joint Injection/Aspiration Details: Bilateral knee joints Prep: site was prepped using aseptic technique Injected into each joint: 40 mg of, Kenalog, with 1 mL of and 1% plain lidocaine Procedure: Informed verbal consent was obtained. The patient tolerated the procedure well. Postprocedure protocol was discussed with patient. Coding 60168 - Bilateral Large Joint Procedure code (CPT) selection complete AMB Joint Injection/Aspiration Coding 37054 - Bilateral Large Joint Procedure code (CPT) selection complete Office Meds lidocaine (PF) 10 mg/mL (1 %) injection solution Performing Provider: Quincy Theodore MD Performing Location: [facility] [place] [facility] Administered by: Federica Bobo RN on 04/22/25 13:53 Dose Route Admin Location Dispensed Lot Number Expiration Date [employer] Supervisor 1 mL Infiltration 2 mL [id number] 12/12/26 50760-547-15 LUIS CARLOS NIUS KABI Total Dispensed Waste 2 mL 50 % Kenalog 40 mg/mL suspension for injection Performing Provider: Quincy Theodore MD Performing Location: [facility] [place] [facility] Administered by: Federica Bobo RN on 04/22/25 13:53 Dose Route Admin Location Dispensed Lot Number Expiration Date ND [employer] Department Supervisor 40 mg intrabursal 1 mL [id number] 01/11/27 [address]-2 AMNEA L [employer] Total Dispensed Waste 1 mL 0 % lidocaine (PF) 10 mg/mL (1 %) injection solution Performing Provider: Quincy Theodore MD Performing Location: [facility] [place] [facility] Administered by: Federica Bobo RN on 04/22/25 13:55 Dose Route Admin Location Dispensed Lot Number Expiration Date [employer] Supervisor 1 mL Infiltration 2 mL [id number] 12/12/26 61395-338-04 LUIS CARLOS NIUS KABI Total Dispensed Waste 2 mL 50 % Kenalog 40 mg/mL suspension for injection Performing Provider: Quincy Theodore MD Performing Location: [facility] [place] [facility] Administered by: Federica Bobo RN on 04/22/25 13:55 Dose Route Admin Location Dispensed Lot Number Expiration Date [employer] Supervisor 40 mg intrabursal 1 mL [id number] 01/11/27 [address]-4 [employer]NEA L [employer] Total Dispensed Waste 1 mL 0 % Results Reviewed Results Reviewed: X-rays and labs reviewed in [facility]. Assessment & Plan Assessment & Plan (1) Leg pain, bilateral: Comment: Chronic. Multifactorial: Bilateral trochanteric bursitis, IT band syndrome, weakness in quadricep muscles and osteoarthritis affecting knees. We discussed conservative management. Answered patient's and his 's questions to their satisfaction. Code(s): M79.604 - Pain in right leg; M79.605 - Pain in left leg Category: Medical Plan: PT ordered for LE strengthening. Discussed the importance of long-term rehabilitation for building strength in his lower extremities Start meloxicam 15 mg after dinner daily Okay to use Tylenol up to 3000 mg daily with meloxicam Continue gabapentin 600 mg q.h.s.. With time if his pain has not improved with above, PCP can up titrate gabapentin to help manage pain from osteoarthritis aff ecting his lower back and knees. Baseline labs ordered Return to clinic in 3-4 months (2) Greater trochanteric bursitis of both hips: Code(s): M70.61 - Trochanteric bursitis, right hip; M70.62 - Trochanteric bursitis, left hip Category: Medical Plan: Patient received bilateral trochanteric bursa cortisone injections this visit PT ordered for lower extremity strengthening Return to clinic in 3-4 months (3) IT band syndrome: Code(s): M76.30 - Iliotibial band syndrome, unspecified leg Category: Medical Plan: See above (4) Bilateral primary osteoarthritis of knee: Comment: Mild on prior x-rays April 2023 Code(s): M17.0 - Bilateral primary osteoarthritis of knee Category: Medical Plan: X-ray bilateral knees ordered to evaluate for progression of osteoarthritis PT ordered for lower extremity strengthening Start meloxicam 15 mg daily, okay to take Tylenol with meloxicam maximum 3000 mg daily Return to clinic in 3-4 months (5) Bilateral hand pain: Comment: He was assured that he does not have any clinical signs of psoriatic arthritis. Code(s): M79.641 - Pain in right hand; M79.642 - Pain in left hand Category: Medical Plan: X-ray bilateral hands ordered Return to clinic in 3-4 months (6) Bilateral primary osteoarthritis of knee: Comment: Mild on prior x-rays April 2023 Code(s): M17.0 - Bilateral primary osteoarthritis of knee Category: Medical Plan: See above (7) Lumbar spondylosis: Comment: Contributing to lower back pain. It has progressed over the last year. We discussed conservative management in the importance of rehabilitation for strengthening. Code(s): M47.816 - Spondylosis without myelopathy or radiculopathy, lumbar region Category: Medical Plan: X-ray lumbar spine ordered to evaluate for progression of osteoarthritis PT ordered for lower back strengthening Start meloxicam 15 mg daily Okay to use Tylenol maximum 3000 mg daily Continue gabapentin 600 mg q.h.s.. If he does not get pain relief with above, PCP can up titrate gabapentin as he tolerates it to help manage pain from osteoarthritis in his lower back and knees Return to clinic in 3-4 months (8) Paresthesia of hand, bilateral: Comment: He has clinical carpal tunnel syndrome but it would not explain paraesthesia extending from his shoulders down to his arms Code(s): R20.2 - Paresthesia of skin Category: Medical Plan: EMGs of bilateral upper extremities ordered His has cock-up wrist braces that she does not use that he will start wearing at night RTC 3-4 months Orders: Orders XR lumbar spine 2-3V 04/22/25 M47.816 - Spondylosis without myelopathy or radiculopathy, lumbar region Alanine Aminotransferase 04/22/25 Z79.899 - Other correction (current) drug therapy PT Evaluation and Treatment 04/22/25 M17.0 - Bilateral primary osteoarthritis of knee, M70.61 - Trochanteric bursitis, right hip, M70.62 - Trochanteric bursitis, left hip, M76.30 - Iliotibial band syndrome, unspecified leg XR Foot Dagoberto 3V 04/22/25 M17.0 - Bilateral primary osteoarthritis of knee XR Hand Bilat min 3v 04/22/25 M79.641 - Pain in right hand, M79.642 - Pain in left hand XR Knee Dagoberto 3V 04/22/25 M17.0 - Bilateral primary osteoarthritis of knee NE electromyogram (EMG) 04/22/25 R20.2 - Paresthesia of skin NE nerve conduction velocity 04/22/25 R20.2 - Paresthesia of skin Creatinine 04/22/25 Z79.899 - Other correction (current) drug therapy Aspartate Amino Transferase 04/22/25 Z79.899 - Other exterminator (current) drug therapy AMB Joint Injection/Aspiration 04/22/25 M70.61 - Trochanteric bursitis, right hip, M70.62 - Trochanteric bursitis, left hip AMB Joint Injection/Aspiration 04/22/25 M70.61 - Trochanteric bursitis, right hip, M70.62 - Trochanteric bursitis, left hip Medications: New meloxicam Take with food 15 mg PO DAILY 30 tabs 2RF Coding Level of Care Code New Pt Level 5 (68481) Diagnoses Leg pain, bilateral M79.604; M79.605 Greater trochanteric bursitis of both hips M70.61; M70.62 IT band syndrome M76.30 Bilateral primary osteoarthritis of knee M17.0 Bilateral hand pain M79.641; M79.642 Lumbar spondylosis M47.816 Paresthesia of hand, bilateral R20.2 CPT Codes Coding - 67059 - Bilateral Large Joint: 29757 - Bilateral Large Joint ([id number]) Coding - 89519 - Bilateral Large Joint: 30985 - Bilateral Large Joint ([id number]) Time Spent (min) 60
[2025-04-22 11:01] VITALS: BP 120/80; PULSE 84; O2SAT 99; BMI 23.7
== END 2025-04-22 12:45 | disposition home or self-care (01) ==
PROVIDERS: PCP Internal Medicine; Visit Provider Internal Medicine Rheumatology
DX: M17.0 Bilateral primary osteoarthritis of knee (principal); M79.604 Pain in right leg; M79.605 Pain in left leg; M70.61 Trochanteric bursitis, right hip; M70.62 Trochanteric bursitis, left hip; M76.30 Iliotibial band syndrome, unspecified leg; M79.641 Pain in right hand; M79.642 Pain in left hand; M47.816 Spondylosis without myelopathy or radiculopathy, lumbar region; R20.2 Paresthesia of skin
CPT/HCPCS: 20610; 99214

== ENCOUNTER 2025-04-22 10:54 | Outpatient (REF) | payer BC, SELFPAY ==
[2025-04-22 18:18] LABS: Alanine Aminotransferase 18 U/L (0-40); Estimated Glomerular Filt Rate > 60
== END 2025-04-22 10:55 | disposition home or self-care (01) ==
LOC: HO.HKASLDS 10:54
PROVIDERS: PCP Internal Medicine; Visit Provider Internal Medicine Rheumatology
DX: M47.816 Spondylosis without myelopathy or radiculopathy, lumbar region (principal); M70.61 Trochanteric bursitis, right hip; M70.62 Trochanteric bursitis, left hip; M17.0 Bilateral primary osteoarthritis of knee; M76.32 Iliotibial band syndrome, left leg; M76.31 Iliotibial band syndrome, right leg; M79.641 Pain in right hand; M79.642 Pain in left hand; R20.2 Paresthesia of skin; Z79.899 Other long term (current) drug therapy
CPT/HCPCS: 20610; 36415; 82565; 84460; J2003; J3301

== ENCOUNTER 2025-06-30 06:09 | Outpatient (REF) | payer BC, SELFPAY ==
--- OUTSIDE RECORDS SUMMARY | 2024-04-13 06:30 | XMS_ITS ---
Author Organization [facility] Address [address] [place] [phone] Care Team Providers Care Hand Grinder Name Role Phone Garrison CEDEÑO, [facility] Primary Care Provider Jerman Vasques [phone] REASON FOR VISIT esophageal ring,globus sensation,dysphagia, eosinophilic esophagitis Problems Problem Type SNOMED Code ICD Code Onset Dates Problem Status W/U Status Risk Notes Problem Gastro-esophagea l reflux disease without esophagitis (446447570) Gastro-esophage al reflux disease without esophagitis (K21.9) Active confirmed Problem Dysphagia (25788578) Dysphagia (R13.10) Active confirmed Problem Globus sensation (060635119) Globus sensation (F45.8) Active confirmed Encounters Encounter Location Date Provider Diagnosis [facility] [place] Outpatient [address] [place] [phone] 04/13/2024 Jerman Johnson Gastro-esophageal reflux disease without esophagitis K21.9 and Dysphagia R13.10 Assessments Encounter Date Diagnosis (ICD Code) Assessment Notes Treatment Notes Treatment Clinical Notes Section Notes 04/13/2024 Gastro-esophagea l reflux disease without esophagitis (ICD-10 - K21.9) 04/13/2024 Dysphagia (ICD-10 - R13.10) Plan Of Treatment No Information Progress Notes * AMEENA XIEDOB: 2 (54 yo M)Acc No.[id number]:04/13/2024 EGD/MAC Patient: Marta AMEENA WYLIE Provider: Hunter Johnson MD :1970 A ge:53 Y S ex:Male Date:04/13/2024 Address:[address] [place], [place] [id number] Pcp:Chandu Ji MD Subjective: * Chief Complaints: * E sophageal ring,globus sensation,dysphagia, eosinophilic esophagitis Assessment: * Assessment: 1. G oskar-esophageal reflux disease without esophagitis - K21.9 (Primary) 2 .?Dysphagia - R13.10 Plan: * Procedure Codes: 4 3249 ESOPH ENDOSCOPY, [id number] UPPER GI ENDOSCOPY, BIOPSY, Modifiers: 59 Billing Information: * Procedure Codes: 67002 ESOPH ENDOSCOPY, DILATION. 32666 UPPER GI ENDOSCOPY, BIOPSY. Modifiers: 59 * The named appointment provid er may or may not be the originator of this progress note, and it is not deemed complete until electronically signed by the appointment provider. Sign off status: Pending * Provider: Hunter Johnson MD Date: 0 04/13/2024 Generated for Avinash kelley/Josh/Argentinasmitting on: 1 08/31/2024 06:11 AM EST
--- OUTSIDE RECORDS SUMMARY | 2025-06-30 06:11 | XMS_ITS | Patient Health Record ---
Author Organization [facility] Address [address] [place] [address] Care Team Providers Care Slot Machine Key Person Name Role Phone Garrison CEDEÑO, [facility] Primary Care Provider Jerman Vasques [phone] Allergies No Known Allergies Reason For Referral No Information Medications Medication SIG (Take, Route, Frequency, Duration) Notes Start Date End Date Status Nicotine 21 MG/24HR Patch 24 Hour APPLY 1 PATCH TRANSDERMALLY EVERY 24 HOURS Transdermal; Duration: 28 Active Losartan Potassium-HCTZ 50-12.5 MG Tablet TAKE 1 TABLET BY MOUTH EVERY DAY Oral; Duration: 90 Active Omeprazole 20 MG Capsule Delayed Release 1 capsule Orally Once a day; Duration: 30 Active Tiotropium [place]-Olodaterol 2.5-2.5 MCG/ACT Aerosol Solution 2 puffs Inhalation Once a day Active Adalimumab 40 MG/0.8ML Prefilled Syringe Kit as directed Subcutaneous Active Albuterol Sulfate HFA 108 (90 Base) MCG/ACT Aerosol Solution 1 puff as needed Inhalation every 4 hrs Active Aleve 220 MG Tablet 1 tablet with food o r milk as needed Orally every 12 hrs Active Mirtazapine 15 MG Tablet Oral; Duration: 90 Active Gabapentin 300 MG Capsule TAKE 1 CAPSULE BY MOUTH AT BEDTIME Oral; Duration: 90 Activ e Social History Tobacco Use: Social History Observation Description Date Details (start date - stop date) Former Smoker NA - NA Social History Tobacco Use: Social Info Question Answer Notes Tobacco Use/Smoking Patient is a former smoker How long has it been since you last smoked? 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 Section Notes: Smoker 1 ppd; no sig alcohol Smoker 1 ppd---but now only 1 or 2 cigs QD since 09/2017; no sig alcohol Smoker 1 ppd---but now only 1 or 2 cigs QD since 09/2017; no sig alcohol; 02/2024 quit smoking about a month ago Problems Problem Type SNOMED Code ICD Code Onset Dates Problem Status W/U Status Risk Notes Problem Diverticulitis of colon (699594138) Diverticulitis of large intestine without perforation or abscess without bleeding (K57.32) Active confirmed Problem Gastro-esophageal reflux disease without esophagitis (233048739) Gastro-esophageal reflux disease without esophagitis (K21.9) Active confirmed Problem Eosinophilic esophagitis (560086268) Eosinophilic esophagitis (K20.0) Active confirmed Problem Dysphagia (39079474) Dysphagia (R13.10) Active confirmed Problem Computed tomography result abnormal (924133368) Abnormal CT scan, colon (R93.3) Active confirmed Problem Esophageal ring (03518039) Esophageal ring (K22.2) Active confirmed Problem Esophageal dysphagia (53569827) Esophageal dysphagia (R13.10) Active confirmed Problem Globus sensation (374867336) Globus sensation (F45.8) Active confirmed Problem Globus sensation (783356252) Globus sensation (R09.89) Active confirmed Plan Of Treatment Pending Test Test Name [...] Insured Coverage Start Date Coverage End Date [facility] [address] [place] [phone] [id number] AMEENA XIE Self - patient is the [...] been specifically treated GERD--asymptomatic on omeprazole Denies ME,DM,CVA,Lung disease,renal dise ase Diverticulitis -09/2017--treated at [facility] [place] with antibiotics Psoriasis Eosinophilic esophagitis as above #1 Hypertension Colonoscopy in January of 2018 was negative except for some diverticulosis and a hyperplastic polyp Upper endoscopy in January 2018 revealed a distal esophageal ring which was dilated up to a 20mm balloon with good effect Surgical History Surgery Date(Month/Year)
--- OUTSIDE RECORDS SUMMARY | 2025-06-30 06:11 | XMS_ITS | Clinical Summary ---
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
--- OUTSIDE RECORDS SUMMARY | 2025-06-30 06:11 | XMS_ITS | Data Portability ---
Author Organization [place] [facility] Address [address] [address] Assessment Encounter Date Assessment Date Assessment LastModified [...] doses of Tylenol (acetaminophen) and Motrin (ibuprofen) [id number] every 3 hours are recommended. Use of narcotics and antibiotics are not recommended. Usually 1 week out of school or work is needed to recover, and then they may return with light activities for an additional week before resuming regular routine. They will contact our office to schedule at a mutually convenient time. All questions were answered. [email or web address] Not available 06/16/2024 15:25:44 07/06/2024 07/06/2024 Path [...] recorded. Surgeries tonsillecto my (SURG) 2023 024 [email or web address] Not available 08:47:18 Imaging None recorded. [...] Address Organization Details Recorded Time Tonsil asymmetry 045055449 Active 024 VICKI KIDD MD [address] [place] [address], [phone], [facility] - [facility] 15:23:26 Problem Notes None recorded. Procedures Surgical History Date Name Laterality Status Provider Name and Address Organization Details Recorded Time 06/22/20 24 Removal of tonsils completed VICKI KIDD MD [address] [place] [address], [phone], [facility] 06/22/2024 13:31:38 06/22/20 24 TONSILLECTOMY (SURG) completed Adiel Cai [facility] 06/29/2024 13:01:43 06/16/20 24 FOL_DP completed VICKI KIDD MD [address] [place] [address], [phone], [facility] 06/16/2024 09:02:14 Imaging Results None recorded. Procedure Notes None recorded. Medical Equipment None Reported. Allergies Allergen ID Allergen Name Allergen Category Reaction Reaction Severity Criticality Documentation Date Start Date Code Code System Note Provider Name and Address Organization Details Recorded Time 724239 morphine medicatio n nausea Not available Not available 06/16/2024 7052 RxNorm Courtney zimmerman [facility] 15:02:09 Medications Name Sig Start Date Stop [...] Updated DateTime 06/16/2024 177.8 cm 23.7 kg/m2 80087.74 g [facility] 06/16/2024 15:00:08 Date Recorded Body height Body mass index (BMI) Body weight Provider Name and Address Organization Details Last Updated DateTime 07/06/2024 177.8 cm 23.7 kg/m2 51552.74 g Courtney Cornelius [facility] 07/06/2024 15:41:57 Social History None recorded. Functional Status None recorded. Mental Status None recorded. Family History Nothing Reported. Medical History Condition Response Allergies/Hayfever N Heart Problems N Anxiety N Tonsil Infections N Emphysema N Migraines N Thyroid Problems N Glaucoma N Developmental Delay N Depression N COPD N Nasal or Sinus Problems N Anemia N Immune System Disorder N Anesthesia Complications N Heart Attack ([place]) N Other Skin Condition Y Diabetes N Rhinitis N Bleeding Disorder N Food Allergy N Hearing Loss N Arthritis Y Hyperlipidemia N Cancer N Stroke N Dementia N Nasal polyps N Asthma Y Sleep Disorder N High Cholesterol N GERD/Reflux Y Liver Disease N Headaches N Fibromyalgia N Hypertension N Speech Delay N Kidney Disease N Past Encounters Encounter ID Performer Location Encounter Start Date Encounter Closed Date Diagnosis/Indication Diagnosis SNOMED-CT Code Diagnosis ICD10 Code Diagnosis IMO Codes Diagnosis Note [id number] VICKI KIDD MD [facility] [address] [phone] 06/16/2024 14:50:20 06/16/2024 15:27:01 Tonsil asymmetry 610645858 J35.8 Patient has tonsil asymmetry with right [...] time he has no palpable lymphadeno katheryn [id number] VICKI KIDD MD [facility] [address] [phone] 07/06/2024 15:32:27 07/06/2024 16:29:53 Tonsil asymmetry 973627391 J35.8 Health Concerns Section Related Observation LastModified by Organization Detai ls LastModified Time None Recorded Concern Status LastModified by Organization Details LastModified Time None Recorded Advance Directives Directive None Recorded Payers Insurance Date Sequence Insurance Name Policy Number Policy Santos Covered Member ID Santos Member ID Guarantor Name 07/06/2024 1 [facility] (O) [id number] Mateo Carrera [id number] Mateo Carrera 10/16/2024 1 [facility] PUBLIC [facility]ANS [facility] TYPE I (HMO) [id number] Mateo Deniseon [id number] Mateo Carrera Notes Date Note Type Note Provider Name and Address Organization Details Recorded Time 06/16/2024 text/html ROS as noted in the HPI globusfrequent throat clearing, worse when supineonset February 2024+GERD on omeprazole, doubled his dose.esophageal dilation with Dr Johnson was benigntobacco - stopped 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 VICKI KIDD MD [address] [place] [address], [phone], [facility] [place] 06/16/2024 15:27:08 07/06/2024 text/html ROS as noted in the HPI globusfrequent throat clearing, worse when supineonset February 2024+GERD on omeprazole, doubled his dose.esophageal dilation with Dr Johnson was benigntobacco - stopped soriatic arthritis 06/22/2024 [facility], [place] T[facility]il[facility] at [facility] - 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
[2025-06-30 10:38] LABS: MANUAL DIFF FLAG NO
[2025-06-30 10:49] LABS: Hematocrit 41.5 % (42.0-52.0); Hemoglobin 14.6 g/dl (14.0-18.0); Imm Gran Abs Auto 0.05 X10*3/uL (0.00-0.03); Imm Gran Pct Auto 0.4 % (0.0-0.4); Lymphocytes Absolute Auto 3.1 X10*3/uL (1.2-4.9); Mean Corpuscular HGB Conc 35.2 g/dl (31.0-36.0); Mean Corpuscular Hemoglobin 33.1 pg (27.0-33.0); Mean Corpuscular Volume 94.1 fL (80.0-98.0); NRBC Abs Auto 0.000 X10*3/uL (0.0-0.012); NRBC Pct Auto 0.0 /100WBC (0.0-0.2); Platelet Count 255 X10*3/uL (160-400); Red Blood Count 4.41 X10*6/uL (4.60-5.80); White Blood Count 11.6 X10*3/uL (4.8-10.8)
[2025-06-30 11:08] LABS: Alanine Aminotransferase 14 U/L (0-40); Albumin Level 4.1 g/dL (3.5-5.0); Alkaline Phosphatase 89 U/L (39-117); Anion Gap 11 (12-20); Aspartate Amino Transferase 30 U/L (5-37); Blood Urea Nitrogen 8 mg/dL (9-16); Calcium 9.1 mg/dL (8.4-10.2); Carbon Dioxide 25 mmol/L (22-29); Chloride 107 mmol/L (96-108); Cholesterol 170 mg/dL (<200); Estimated Glomerular Filt Rate > 60; HDL Cholesterol 44 mg/dL (>40); Potassium 3.5 mmol/L (3.3-5.1); Sodium 139 mmol/L (135-145); Total Protein 6.6 g/dL (6.5-8.0); Triglycerides 79 mg/dL (<150)
== END 2025-06-30 06:10 | disposition home or self-care (01) ==
LOC: HO.HMGCLDS 06:09
PROVIDERS: PCP Internal Medicine; Visit Provider Internal Medicine
DX: I10 Essential (primary) hypertension (principal); J44.9 Chronic obstructive pulmonary disease, unspecified; G47.9 Sleep disorder, unspecified; L40.50 Arthropathic psoriasis, unspecified; M25.50 Pain in unspecified joint; M54.50 Low back pain, unspecified; R06.2 Wheezing; F17.210 Nicotine dependence, cigarettes, uncomplicated
CPT/HCPCS: 36415; 80053; 80061; 85025

== ENCOUNTER 2025-07-06 08:43 | Outpatient (AMB) | payer BC, SELFPAY ==
--- OUTSIDE RECORDS SUMMARY | 2024-04-13 06:30 | XMS_ITS ---
Author Organization [facility] Address [address] [place] [phone] Care Team Providers Care Dental Office Manager Name Role Phone Garrison CEDEÑO, [facility] Primary Care Provider Jerman Vasques [phone] REASON FOR VISIT esophageal ring,globus sensation,dysphagia, eosinophilic esophagitis Problems Problem Type SNOMED Code ICD Code Onset Dates Problem Status W/U Status Risk Notes Problem Gastro-esophagea l reflux disease without esophagitis (524506283) Gastro-esophage al reflux disease without esophagitis (K21.9) Active confirmed Problem Dysphagia (97497942) Dysphagia (R13.10) Active confirmed Problem Globus sensation (083705307) Globus sensation (F45.8) Active confirmed Encounters Encounter Location Date Provider Diagnosis [facility] [place] Outpatient [address] [place] [phone] 04/13/2024 Jerman Johnson Gastro-esophageal reflux disease without esophagitis K21.9 and Dysphagia R13.10 Assessments Encounter Date Diagnosis (ICD Code) Assessment Notes Treatment Notes Treatment Clinical Notes Section Notes 04/13/2024 Gastro-esophagea l reflux disease without esophagitis (ICD-10 - K21.9) 04/13/2024 Dysphagia (ICD-10 - R13.10) Plan Of Treatment No Information Progress Notes * AMEENA XIEDOB: 2 (54 yo M)Acc No.[id number]:04/13/2024 EGD/MAC Patient: Marta AMEENA WYLIE Provider: Hunter Johnson MD :1970 A ge:53 Y S ex:Male Date:04/13/2024 Address:[address] [place], [place] [phone] Pcp:Chandu iJ MD Subjective: * Chief Complaints: * E sophageal ring,globus sensation,dysphagia, eosinophilic esophagitis Assessment: * Assessment: 1. G oskar-esophageal reflux disease without esophagitis - K21.9 (Primary) 2 .?Dysphagia - R13.10 Plan: * Procedure Codes: 4 3249 ESOPH ENDOSCOPY, [id number] UPPER GI ENDOSCOPY, BIOPSY, Modifiers: 59 Billing Information: * Procedure Codes: 23300 ESOPH ENDOSCOPY, DILATION. 27457 UPPER GI ENDOSCOPY, BIOPSY. Modifiers: 59 * The named appointment provid er may or may not be the originator of this progress note, and it is not deemed complete until electronically signed by the appointment provider. Sign off status: Pending * Provider: Hunter Johnson MD Date: 0 04/13/2024 Generated for Avinash kelley/Josh/Argentinasmitting on: 1 09/06/2024 08:59 AM EST
--- NOTE | 2025-07-06 08:45 | A.OFFPC_ITS ---
Vital Signs 07/06/25 08:46 Height 5 ft 9 in Weight 160 lb BMI 23.6 BP 122/80 Blood Pressure Location Lt brachial Position Sitting Pulse 86 Pulse Source Pulse Oximeter Pulse Oximetry (%) 97 Intake Visit Reasons: 3m follow up Allergies morphine Allergy (Verified 07/06/25 08:46) Nausea Tobacco use date assessed: 01/06/25 Dental Screening Dental Screen Date: 01/06/25 HPI HPI Comments History of Present Illness Details History of Present Illness The patient is a 54 year old male presenting for management of multiple chronic conditions. Loss of teeth: - The patient reports a lifelong history of teeth problems and recently lost another tooth after chipping one a few months ago. - He is considering full lower dental im plants, noting the procedure is expensive, and is currently researching his options. Tobacco Use Disorder: - The patient continues to smoke approxi mately 6 to 8 cigarettes per day. - He is taking bupropion, which was init ially for smoking cessation, but reports that it has not been effective for this purpose. Depression: - The patient takes bupropion, reporting it helps stabilize his mood and manage anger, though he states he does not feel depressed. Arthralgia and Paresthesia: - The patient reports joint pain, which is severe enough to wake him from sleep. - He describes the pain as his feet and hips being on fire, requiring him to get up and move around at night. - He is managed by a clinical rehabilitation specialist, Dr. Theodore, with gabapentin 600 mg at bedtime and meloxicam. - He also experiences numbness in his lee nds and feet, along with neck soreness . - An EMG study of his upper and lower gustavo dy is scheduled for July 14 to investigate these symptoms, and a CT scan is scheduled for August. thru Rhumatology Insomnia: - The patient reports disturbed sleep, w aking up every couple of hours due to soreness from his joint pain. - He takes mirtazapine as needed for sle ep but finds it difficult to use during the work week. Chronic Obstructive Pulmonary Disease and Asthma: - The patient has a history of COPD and asthma. - He is prescribed Spiriva but admits to non-adherence, taking it only about five days a week because he forgets. Hypertension: - The patient's blood pressure is well-c ontrolled, with a recent reading of 122/80 mmHg. Gastroesophageal Reflux Disease: - His GERD is reportedly under control w ith daily omeprazole. Medical History: - Hypertension, well-controlled - Chronic obstructive pulmonary disease - Asthma - Depression/Anger management - Gastroesophageal reflux disease, contr olled - Chronic arthralgia - History of poor dentition Medications: - Bupropion (Wellbutrin), taken for mood stabilization and anger management. - Gabapentin 600 mg at bedtime, for join t pain. - Meloxicam, for joint pain. - Mirtazapine, taken as needed for sleep . - Omeprazole, taken daily for reflux. - Tiotropium (Spiriva), for COPD/asthma, taken approximately 5 days a week. [facility] Medical History Polyarthralgia Psoriasis HTN (hypertension) COPD (chronic obstructive pulmonary disease) Asthma Personal history of nicotine dependence GERD (gastroesophageal reflux disease) Diverticulitis History of colon polyps Surgical History History of tonsillectomy History of colonoscopy History of esophagogastroduodenoscopy (EGD) Family History Daughter Crohn's colitis Social History Household Members: Spouse Housing: House Are you a primary skin care consultant to a significant other at home: No Do you presently have visiting nurse or other home services: No Alcohol intake: current Alcohol intake frequency: a few times a week Patient Tobacco Use Status: Current someday Tobacco user Tobacco use type: Cigarette Years Smoked: (onset 17yo, 1ppd x 36yrs, 35pyh - quit 02/2024) e-Cigarette/Vaping Use: Never Used service: No Current occupational status: employed 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 Cognitive needs: No Hearing needs: No Vision needs: No Questionnaire Thrive Questionnaire Date Thrive assessed: 09/30/24 I am a: Patient What is your living situation today?: I have a steady place to live Within the past 12 months, did the food you bought not last and you didn't have the money to get more?: Never true Within the past 12 months, did you worry whether your food would run out before you got money to buy more?: Never true Do you have trouble paying for medicines?: No Do you have trouble getting transportation to medical appointments?: No Do you have trouble paying your heating and electricity bill?: No Do you have trouble taking care of your child, family member or friend?: No Do you have trouble with day-to-day activities such as bathing, preparing meals, shopping, managing finances, etc.?: No Are you currently unemployed and looking for a job?: No Are you interested in more education?: No Please select the resources that you would like help with: None Currently or been in a relationship where the following occur: No concerns reported THRIVE Score: 0 DESTINEY-7 AMB Questionnaire DESTINEY-7 Date DESTINEY - 7 assessed: 10/07/24 Source: Developed by Drs. Jerman El, Ruby Galaviz, Carlos Rocha and colleagues, with an educational hina from [employer]. Review of Systems Narrative Review of Systems - General: No fever no chills - Neurological: no dizziness - Ear nose throat: No sore throat no hearing difficulty no ear pain - Cardiovascular: No syncope, no chest pain, no palpitations - Gastrointestinal: No nausea vomiting or diarrhea - Endocrine: No polyuria polydipsia no heat intolerance - Genitourinary: No dysuria , no blood in urine Physical exam (Primary Care) Vital Signs: Last Vital Signs Pulse 86 07/06/25 08:46 BP 122/80 07/06/25 08:46 Pulse Ox 97 07/06/25 08:46 BMI result Body Mass Index 23.6 Tobacco/Smoking Status: Tobacco use Status Tobacco use date assessed 01/06/25 07/06/25 08:47 Patient Tobacco Use Status Current someday Tobacco 07/06/25 08:47 Tobacco use type Cigarette 07/06/25 08:47 e-Cigarette/Vaping Use Never Used 07/06/25 08:47 Thrive Assessment: Date of Thrive Assessment Date Thrive assessed 09/30/24 07/06/25 08:47 Currently or been in a relationship where the following occur: No concerns reported Narrative Physical Exam General: No acute distress HEENT: No acute findings Neck: Supple Respiratory system: Wheezing on the right side posteriorly mild Cardiovascular: S1-S2 regular in rate and rhythm Gastrointestinal: No pain Extremities: No new findings 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 x3 motor intact Skin: Normal turgor Coding Level of Care Code Est Pt Level 4 (01332) Diagnoses Wheezing R06.2 COPD mixed type J44.9 Difficulty sleeping G47.9 Hypertension, essential I10 Psoriatic arthritis L40.50 Polyarthralgia M25.50 Chronic midline low back pain without sciatica M54.50; G89.29 Chronicity: chronic Back pain laterality: midline Sciatica presence: without sciatica Cigarette nicotine dependence without complication F17.210 Nicotine product type: cigarettes Substance use status: uncomplicated Loss of teeth K08.109 Chronic GERD K21.9 Chronic pain syndrome G89.4 Chronic pain type: chronic pain syndrome Paresthesia of hand, bilateral R20.2 Assessment & Plan Assessment & Plan (1) Wheezing: Code(s): R06.2 - Wheezing Category: Medical (2) COPD mixed type: Code(s): J44.9 - Chronic obstructive pulmonary disease, unspecified Category: Medical (3) Difficulty sleeping: Code(s): G47.9 - Sleep disorder, unspecified Category: Medical (4) Hypertension, essential: Code(s): I10 - Essential (primary) hypertension Category: Medical (5) Psoriatic arthritis: Code(s): L40.50 - Arthropathic psoriasis, unspecified Category: Medical (6) Polyarthralgia: Code(s): M25.50 - Pain in unspecified joint Category: Medical (7) Low back pain, unspecified: Code(s): M54.50 - Low back pain, unspecified Category: Medical Qualifiers: Chronicity: chronic Back pain laterality: midline Sciatica presence: without sciatica Qualified Code(s): M54.50 - Low back pain, unspecified; G89.29 - Other chronic pain (8) Nicotine dependence: Code(s): F17.200 - Nicotine dependence, unspecified, uncomplicated Category: Medical Qualifiers: Nicotine product type: cigarettes Substance use status: uncomplicated Qualified Code(s): F17.210 - Nicotine dependence, cigarettes, uncomplicated (9) Loss of teeth: Code(s): K08.109 - Complete loss of teeth, unspecified cause, unspecified class Category: Medical (10) Chronic GERD: Code(s): K21.9 - Gastro-esophageal reflux disease without esophagitis Category: Medical (11) Chronic pain: Code(s): G89.29 - Other chronic pain Category: Medical Qualifiers: Chronic pain type: chronic pain syndrome Qualified Code(s): G89.4 - Chronic pain syndrome (12) Paresthesia of hand, bilateral: Comment: He has clinical carpal tunnel syndrome but it would not explain paraesthesia extending from his shoulders down to his arms Code(s): R20.2 - Paresthesia of skin Category: Medical Plan Problem List - Hypertension - Loss of teeth - Tobacco use disorder - Depression - Arthralgia - Insomnia - Gastroesophageal reflux disease - Chronic obstructive pulmonary disease - Asthma - Paresthesia - Preventative care: Immunizations Plan - The patient was strongly encouraged to quit smoking, highlighting its negative impact on his COPD and asthma. - Encouraged consistent daily use of tiotropium (Spiriva) for his respiratory conditions. - Recommended the patient get a pneumonia vaccine due to his asthma and COPD; he is considering it. - A flu vaccine was offered, which the patient declined. - The patient will continue follow-up with his clinical rehabilitation specialist, Dr. Theodore, in August for joint pain management. - Advised to ask the clinical rehabilitation specialist to take over prescribing gabapentin, as it is being used for a rheumatological condition. - The patient will proceed with his scheduled EMG on July [address] scan on September 01. - The patient will continue his research on dental implant options. - Follow-up is scheduled for October 13.
[2025-07-06 08:46] VITALS: BP 122/80; PULSE 86; O2SAT 97; BMI 23.6
--- OUTSIDE RECORDS SUMMARY | 2025-07-06 09:00 | XMS_ITS | Patient Health Record ---
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 Section Notes: Smoker 1 ppd; no sig [...] Status Risk Notes Problem Diverticulitis of colon (626085169) Diverticulitis of large intestine without perforation or abscess without bleeding (K57.32) Active confirmed Problem Gastro-esophageal reflux disease without esophagitis (910456256) Gastro-esophageal reflux disease without esophagitis (K21.9) Active confirmed Problem Eosinophilic esophagitis (104726239) Eosinophilic esophagitis (K20.0) Active confirmed Problem Dysphagia (24821922) Dysphagia (R13.10) Active confirmed Problem Computed tomography result abnormal (226548311) Abnormal CT scan, colon (R93.3) Active confirmed Problem Esophageal ring (45485262) Esophageal ring (K22.2) Active confirmed Problem Esophageal dysphagia (53687712) Esophageal dysphagia (R13.10) Active confirmed Problem Globus sensation (585864414) Globus sensation (F45.8) Active confirmed Problem Globus sensation (337314336) Globus sensation (R09.89) Active confirmed Plan Of [...] Insured Coverage Start Date Coverage End Date [facility] [address] [place] [phone] [id number] AMEENA XIE Self - patient is the [...] been specifically treated GERD--asymptomatic on omeprazole Denies [place],DM,CVA,Lung disease,renal dise ase Diverticulitis -09/2017--treated at [facility] with antibiotics Psoriasis Eosinophilic esophagitis as above #1 Hypertension Colonoscopy in January of 2018 was negative except for some diverticulosis and a hyperplastic polyp Upper endoscopy in January 2018 revealed a distal esophageal ring which was dilated up to a 20mm balloon with good effect Surgical History Surgery Date(Month/Year)
--- OUTSIDE RECORDS SUMMARY | 2025-07-06 09:00 | XMS_ITS | Clinical Summary ---
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
== END 2025-07-06 09:09 | disposition home or self-care (01) ==
LOC: HO.HMCC 08:44
PROVIDERS: PCP Internal Medicine; Visit Provider Internal Medicine
DX: R06.2 Wheezing (principal); J44.9 Chronic obstructive pulmonary disease, unspecified; G47.9 Sleep disorder, unspecified; I10 Essential (primary) hypertension; L40.50 Arthropathic psoriasis, unspecified; M25.50 Pain in unspecified joint; M54.50 Low back pain, unspecified; G89.29 Other chronic pain; F17.210 Nicotine dependence, cigarettes, uncomplicated; K08.109 Complete loss of teeth, unspecified cause, unspecified class; K21.9 Gastro-esophageal reflux disease without esophagitis; G89.4 Chronic pain syndrome; R20.2 Paresthesia of skin